=== PATIENT | female | born 1960 | race Caucasian/White ===

== ENCOUNTER 2020-06-08 10:48 | Outpatient (CLI) | payer BC, SELFPAY ==
--- NOTE | 2020-06-08 10:54 | MM_ITS ---
WS: [id number] BILATERAL DIGITAL SCREENING MAMMOGRAPHY WITH CAD CLINICAL INFORMATION: SCREENING HISTORY: Screening mammogram. No current complaints. COMPARISON: March 24, 2019 TECHNIQUE: Bilateral CC and MLO views. FINDINGS: The breasts are composed of heterogeneous fibroglandular density tissue, which can limit the detectio n of small underlying mass lesions. Scattered nodules and asymmetric densities similar in appearance over multiple prior studies. 11 mm 9:00 nodule has increased in size compared to 7 mm previous. This likely corresponds to the previously demonstrated cyst in 2018, however considering increase in size recommend further evaluation with spot compression views and ultrasound for confirmation. Stable intramammary lymph nodes and punctate calcifications. Biopsy clip left breast. MM/[id number] IMPRESSION: BI-RADS: 0-Incomplete: Need additional imaging evaluation FOLLOW UP: Need Additional Imaging Recommend spot compression views and ultrasound right breast
== END 2020-06-08 10:49 | disposition home or self-care (01) ==
LOC: RADSHAW 10:51
PROVIDERS: PCP Family Medicine; Visit Provider Family Medicine
DX: Z12.31 Encounter for screening mammogram for malignant neoplasm of breast (principal); N64.89 Other specified disorders of breast
CPT/HCPCS: 77067

== ENCOUNTER 2020-07-05 14:12 | Outpatient (CLI) | payer BC, SELFPAY ==
--- NOTE | 2020-07-05 14:19 | US_ITS ---
WS: [id number] RIGHT DIGITAL MAMMOGRAPHY WITH CAD CLINICAL INFORMATION: ABNORMAL MAMMOGRAM COMPARISON: June 08, 2020 TECHNIQUE: 3 views of the right breast were obtained. FINDINGS: The right breast is composed of heterogeneous fibroglandular density tissue, which can limit the dete ction of small underlying mass lesions. Stable 11 mm nodule at the 9:00 position. Additional smaller known cysts are stable. Ultrasound is pending. ULTRASOUND BREAST RIGHT TECHNIQUE: Ultrasound right breast focused area of concern. CLINICAL INFORMATION: ABNORMAL MAMMOGRAM COMPARISON: None. FINDINGS: Ultrasound right breast at the 10:00 position 6 cm from the nipple. Incidental simple cysts the large st measuring 1.3 x 0.8 x 1.2 cm at the 10:00 position. No suspicious lesions. No lesions to target fo r biopsy. Findings are benign. US/US breast RT limited* [id number] IMPRESSION: BI-RADS: 2-Benign FOLLOW UP: 1 Year Follow-up Recommend return to annual screening mammography.
== END 2020-07-05 14:13 | disposition home or self-care (01) ==
LOC: RADSHAW 14:13
PROVIDERS: PCP Family Medicine; Visit Provider Family Medicine
DX: R92.8 Other abnormal and inconclusive findings on diagnostic imaging of breast (principal); N60.01 Solitary cyst of right breast
CPT/HCPCS: 76642; 77065

== ENCOUNTER 2021-10-17 08:48 | Outpatient (CLI) | payer OTHER, SELFPAY ==
--- NOTE | 2021-10-17 08:56 | MM_ITS ---
WS: [id number] BILATERAL 3D TOMOSYNTHESIS DIGITAL SCREENING MAMMOGRAPHY WITH CAD CLINICAL INFORMATION: SCREENING HISTORY: Screening mammogram. No current complaints. COMPARISON: June 08, 2020 TECHNIQUE: Bilateral CC and MLO views. FINDINGS: The breasts are composed of heterogeneous fibroglandular density tissue, which can limit the detectio n of small underlying mass lesions. LEFT breast biopsy clip. Bilateral incidental calcifications. Sta ble 11 mm nodule 9:00 position RIGHT breast. This was previously shown to represent a cyst. History o f multiple cysts RIGHT breast. No suspicious mass, asymmetry, calcifications, or architectural distor tion. No evidence of malignancy. MM/[id number] IMPRESSION: BI-RADS: 2-Benign FOLLOW UP: 1 Year Follow-up Recommend return to annual screening mammography.
== END 2021-10-17 08:49 | disposition home or self-care (01) ==
PROVIDERS: PCP Family Medicine; Visit Provider Family Medicine
DX: Z12.31 Encounter for screening mammogram for malignant neoplasm of breast (principal)
CPT/HCPCS: 77063; 77067

== ENCOUNTER 2022-04-29 06:38 | Emergency (ER) | payer OTHER, SELFPAY ==
[2022-04-29 06:43] VITALS: BP 199/106; PULSE 81; RESP 20; TEMP 36.8; O2SAT 98; BMI 54.9
--- NOTE | 2022-04-29 07:13 | ED_ITS ---
HPI - Nausea/Vomiting/Diarrhea General: Chief complaint: Nausea/Vomiting/Diarrhea Stated complaint: Covid symptoms, positive on the Time Seen by Provider: 04/29/22 06:44 Source: patient Mode of arrival: ambulatory History of Present Illness: 62-year-old female presents emergency room complaining of nausea vomiting decreased appetite. Mild vague abdominal discomfort cramping-like symptoms. She was diagnosed positive for COVID on 04/20. Patient had a full course of symptoms including myalgias headache upper respiratory can symptoms with sinus congestion cough and anosmia. She still has some sinus congestion she was seen 2 days ago at a walk-in clinic and started on Zithromax she has 3 days left of the 5-day pack. MD elicited complaint: nausea Onset (ago): day(s) Associated nausea: Yes Location of pain: Diffuse Quality: aching Exacerbating factors: none Relieving factors: none Context: other (Recently diagnosed with COVID) Associated symtoms: Reports bloating, fatigue, anorexia, malaise, myalgias, nausea and weakness; Denies altered mental status, anxiety, change in vision, chest pain, cough, diaphoresis, decreased urine output, dizziness, dysuria, epistaxis, fecal incontinence, fevers/chills, headache(s), numbness, palpitations, rash, short of breath, syncope, tenesmus or tinnitus Review of Systems Const: Reports: fatigue and malaise; Denies: fever(s), chills or diaphoresis Eyes: Denies: change in vision ENMT: Denies: throat pain, tinnitus or epistaxis Card: Denies: chest pain, palpitations or syncope Resp: Denies: dyspnea, productive cough or non-productive cough GI: Reports: abdominal pain, nausea, bloating and GI cramping; Denies: vomiting, fecal incontinence or hematochezia : Denies: flank pain, difficulty voiding, dysuria, urinary frequency or urinary urgency Skin/Breast: Denies: rash or pruritus Neuro: Denies: headache(s) or dizziness Psych: Denies: anxiety PFSH ED PFSH: Medical History Hypertension Hypothyroidism Social History Smoking and tobacco status: current every day smoker Alcohol intake: never Physical Exam Const: COMMON NORMALS: no acute distress EXAM LIMITATIONS: no altered mental status GENERAL APPEARANCE: cooperative and comfortable ORIENTATION/CONSCIOUSNESS: Yes awake, Yes oriented to person, Yes oriented to place and Yes oriented to time HENMT: COMMON NORMALS: normocephalic, atraumatic and hearing grossly normal bilaterally HEAD & SCALP: normocephalic and atraumatic Eye: COMMON NORMALS: Equal, round and reactive pupils present, EOMs intact bilaterally, conjunctivae normal and no scleral icterus CONJUNCTIVA: Yes conjunctivae normal PUPIL: Yes Equal, round and reactive pupils present Neck/C-Spine: COMMON NORMALS: full ROM, no lymphadenopathy, supple and no JVD Lymph: LYMPHATIC: no lymphadenopathy noted and no lymphedema noted Resp: COMMON NORMALS: normal respiratory effort, No retractions, No use of accessory muscles and clear to auscultation bilaterally AUSCULTATION: clear to auscultation bilaterally Cardio: COMMON NORMALS: no JVD, regular rate, regular rhythm and No murmurs present (Cardio) RATE: regular rate RHYTHM: regular rhythm GI: COMMON NORMALS: Soft to palpation and No hepatosplenomegaly present AUSCULTATION: Yes normoactive bowel sounds PALPATION: Yes Soft to palpation, No Tenderness to palpation present (GI), No Guarding due to palpation present (GI) and Yes No hepatosplenomegaly present Extremity: COMMON NORMALS: normal to inspection, capillary refill normal, no clubbing, cyanosis or edema, no calf tenderness and no pedal edema Neuro: SENSORIUM/ORIENTATION: Yes oriented to person, Yes oriented to place and Yes oriented to time Skin: COMMON NORMALS: no rashes or lesions noted GENERAL SKIN EXAM: no rashes or lesions noted Course Vital Signs: Vital signs: Vital Signs Temperature 98.2 F 04/29/22 06:43 Pulse Rate 70 04/29/22 07:31 Respiratory Rate 20 H 04/29/22 06:43 Blood Pressure 174/86 04/29/22 07:31 Pulse Oximetry 99 04/29/22 07:31 Oxygen Delivery Me thod 04/29/22 06:43 MDM - Nausea/Vomiting/Diarrhea Medical Decision Making Suspect a lot of this GI sequela from her COVID. Can use ondansetron as needed. Her abdominal exam is completely benign. Medical Records I reviewed the patient's medical records. Lab Data I reviewed the patient's lab results. Discharge Plan Discharge Patient Disposition: Home Clinical Impression: COVID, Gastroenteritis Condition: Stable Prescriptions: New ondansetron HCl 4 mg tablet 4 mg PO Q6H PRN (Reason: nausea and vomiting) Qty: 20 0RF No Action lisinopril 20 mg tablet 20 mg PO DAILY aspirin [Adult Low Dose Aspirin] 81 mg tablet,delayed release (DR/EC) 81 mg PO DAILY levothyroxine [Levoxyl] 112 mcg tablet 112 mcg PO DAILY clindamycin HCl 300 mg capsule 300 mg PO TID 7 Days Qty: 21 0RF Discharge Orders: Discharge ED (Routine); Ordered 04/29/22 Ordered By: Maximo Iqbal Referrals: Ricky Clay MD [Primary Care Provider] - Discharge Diet: Advance as tolerated Discharge Activity: Increase activity as tolerated Patient Instructions: Opioid Safety, Pain Management Activity Restrictions/Additional Instructions: Use Zofran as needed. Your blood pressure is elevated at the time you are seen today follow-up with your doctor to recheck your blood pressure. Liquid diet today then advance as tolerated. If symptoms are persisting you could also start taking [id number] omeprazole 20 mg once daily. Coding Level of Care Code ED [employer] Programs Director for Abby Ruiz
[2022-04-29 07:31] VITALS: BP 174/86; PULSE 70; O2SAT 99
== END 2022-04-29 07:27 | disposition home or self-care (01) ==
PROVIDERS: Emergency Provider Family Medicine; PCP Family Medicine
DX: K52.9 Noninfective gastroenteritis and colitis, unspecified (principal); I10 Essential (primary) hypertension; E03.9 Hypothyroidism, unspecified; F17.200 Nicotine dependence, unspecified, uncomplicated; Z79.82 Long term (current) use of aspirin; Z86.16 Personal history of COVID-19
CPT/HCPCS: 99283

== ENCOUNTER 2023-03-14 10:37 | Outpatient (CLI) | payer OTHER, SELFPAY ==
--- NOTE | 2023-03-14 10:59 | MM_ITS ---
WS: [id number] BILATERAL 3D TOMOSYNTHESIS DIGITAL SCREENING MAMMOGRAPHY WITH CAD CLINICAL INFORMATION: SCREEN HISTORY: Screening mammogram. No current complaints. COMPARISON: 2021 TECHNIQUE: Bilateral CC and MLO views. FINDINGS: Scattered fibroglandular densities bilaterally. No suspicious focal mass, asymmetry, calcifications, or architectural distortion. No evidence of malignancy. Biopsy clip left breast. Incidental punctate calcifications. Previously described breast cyst 9:00 position right breast is decreased in size toda y measuring 7 mm. IMPRESSION: MM/[id number] BI-RADS: 2-Benign FOLLOW UP: 1 Year Follow-up Recommend return to annual screening mammography.
== END 2023-03-14 10:38 | disposition home or self-care (01) ==
LOC: RAD 10:42 → MOBLMAM 10:43 → RAD 10:54
PROVIDERS: PCP Family Medicine; Visit Provider Family Medicine
DX: Z12.31 Encounter for screening mammogram for malignant neoplasm of breast (principal)
CPT/HCPCS: 77063; 77067

== ENCOUNTER 2023-07-14 11:46 | Inpatient (IN) | payer OTHER, SELFPAY ==
[2023-07-14] VITALS (28 sets, daily range): BP systolic 79–184; BP diastolic 58–156; PULSE 89–104; RESP 17–36; TEMP 36.4–36.9; O2SAT 82–100; BMI 47.2; BMI 46.3
--- NOTE | 2023-07-14 11:49 | XR_ITS ---
WS: [id number] PORTABLE CHEST HISTORY: fall COMPARISON: None available. Slight elevation of the RIGHT diaphragm. Lung volumes are decreased. Hazy attenuation throughout both lungs is probably due to position of the patient and poor inspiration. No dense consolidations. No pleural effusion or pneumothorax. Cardiac size: Normal. Mediastinum/Aorta: Mildly prominent mediastinum as on the basis of supine positioning. No osseous abnormality seen. IMPRESSION: Decreased lung volumes, likely related to poor inspiratory effort. Otherwise negative.
--- NOTE | 2023-07-14 11:49 | XR_ITS ---
WS: [id number] Exam: XR hip RT 2-3V wo/w pel* [id number] Date/Time of Exam: 07/14/2023 11:52 AM Reason For Exam: fall No acute fracture or dislocation. The joint compartment is relatively well-maintained. Normal soft ti ssues. IMPRESSION: 1. No acute fracture.
--- NOTE | 2023-07-14 11:50 | ECG_ITS ---
[facility] Test Date: 2023-07-14 Pat Name: Negrita Lopez Department: Room: Gender: Female Front Office Supervisor: : 1960 Requested By: Thomas Alston Order Number: [id number] Reading MD: Basil Baker M.D. Measurements Intervals [place] Rate: 106 P: 36 SC: 134 QRS: 14 QRSD: 81 T: 58 QT: 334 QTc: 445 Interpretive Statements SINUS TACHYCARDIA MODERATE ST DEPRESSION [0.05+ mV ST DEPRESSION] No previous ECG available for comparison Electronically Signed On 07-14-2023 15:56:36 DIETETICS TEACHER by Basil Baker M.D. [id number]
--- NOTE | 2023-07-14 11:55 | USR_ITS ---
PROCEDURE INFORMATION: Exam: US Duplex Bilateral Lower Extremity Arteries Exam date and time: 07/14/2023 12:30 PM Age: 63 years old Clinical indication: Pain, gangrene, sores TECHNIQUE: Imaging protocol: Real-time ultrasound scan of the arteries of the bilateral lower extremities with 2-D zaidi scale, color Doppler flow and spectral waveform analysis. Images documented and saved. COMPARISON: No relevant prior studies available. FINDINGS: Arteries: No occlusion or significant stenosis in the visualized arteries. Normal waveforms. Dorsalis pedis artery is patent. Bilateral ARTHUR = 1 US/CV arterial duplex [facility] [id number] IMPRESSION: No stenosis or occlusion.
--- NOTE | 2023-07-14 12:20 | ED_ITS ---
HPI - Weakness 2 General: Chief complaint: ER Hold Stated complaint: fall Time Seen by Provider: 07/14/23 11:47 Source: patient and EMS Mode of arrival: EMS Limitations: no limitations History of Present Illness: 63-year-old female who was found down in the floor by her father today. She states she thinks she has been on the floor for 3 days but is unsure. Patient complains of right leg pain she denies hitting her head or any no injuries. Patient is covered in feces and urine she does have maggots on her left leg and a wound and wounds all over her legs currently. Associated symptoms: Denies chest pain, chills, fever(s), headache(s), nausea or vomiting Review of Systems 2 Const: Reports: malaise; Denies: fever(s), chills, body aches or change in appetite ENMT: Denies: throat pain or dental pain Card: Denies: chest pain Resp: Denies: dyspnea GI: Denies: abdominal pain, nausea, vomiting or diarrhea Musc: Reports: extremity pain; Denies: neck pain or back pain Skin/Breast: Reports: erythema; Denies: rash Neuro: Denies: headache(s) PFSH ED 2 PFSH: Medical History Hypothyroidism Hypertension Social History Smoking and tobacco/nicotine status: current every day tobacco/nicotine user Alcohol intake: never Substance/Drug Use: never Physical Exam 2 Const: COMMON NORMALS: patient oriented x3 GENERAL APPEARANCE: ill appearing HENMT: COMMON NORMALS: normocephalic and atraumatic HEAD & SCALP: n ormocephalic and atraumatic Eye: COMMON NORMALS: Equal, round and reactive pupils present and EOMs intact bilaterally PUPIL: Yes Equal, round and reactive pupils present Neck/C-Spine: COMMON NORMALS: full ROM and supple Chest: COMMONS NORMALS: normal inspection of the chest and normal palpation of entire chest wall Resp: COMMON NORMALS: normal respiratory effort, No retractions, No use of accessory muscles and clear to auscultation bilaterally AUSCULTATION: clear to auscultation bilaterally Cardio: COMMON NORMALS: regular rate, regular rhythm and No murmurs present (Cardio) RATE: regular rate RHYTHM: regular rhythm GI: COMMON NORMALS: Normal to inspection, nondistended, normoactive bowel sounds present, Soft to palpation, non-tender and no masses PALPATION: Yes Soft to palpation Extremity: NARRATIVE EXTREMITY EXAM: Multiple open pressure wounds to bilateral legs she does have feces covering her legs she has maggots on one of the wounds to the left lower leg both legs are mottled difficult to find any pulses in the right leg with a cold foot Neuro: COMMON NORMALS: patient oriented x3, moves all extremities and no focal motor deficits Psych: COMMON NORMALS: mental status grossly normal, Normal thought process present and cooperative THOUGHT PROCESS: Normal thought process present Skin: COMMON NORMALS: no rashes or lesions noted and no wounds GENERAL SKIN EXAM: no rashes or lesions noted Procedures Central Line Placement Right IJ: Time Out Performed: Yes Patient Placed on Monitor/Pulse Ox: Yes MD Prep: mask, gown and gloves Central Line Prep: Povidone-Iodine 1% Local Anesthetic: lidocaine 1% Amount of anesthesia used (mL): 3 Ultrasound Used for Placement: Yes Central Line Lumen Inserted: triple Post Procedure: sutured in place, good blood return, all ports aspirated, flushed, capped and sterile dressing applied Post Procedure X-Ray: tip of catheter in good position and no pneumothorax seen Patient Tolerated Procedure: well Complications: none Course 2 Vital Signs: Vital signs: Vital Signs Temperature 97.6 F 07/14/23 11:49 Pulse Rate 99 07/14/23 18:38 Respiratory Rate 23 H 07/14/23 18:38 Blood Pressure 116/69 07/14/23 17:30 Pulse Oximetry 98 07/14/23 18:38 Oxygen Delivery Me thod Room Air 07/14/23 18:38 MDM - Weakness Medical Decision Making Patient presents with rhabdomyolysis likely from being down for a long time she does have pressure wounds along with a UTI patient given IV antibiotics along with fluids here. Labs are consistent with acute kidney injury likely from rhabdo and dehydration patient was given IV fluids here. Central line had to be placed for access as patient was a very difficult IV stick and blown all her IVs. Medical Records I reviewed the patient's medical records. Lab Data I reviewed the patient's lab results. 07/14/23 12:54 07/14/23 12:54 Radiology Impressions Duplex Scan Lower Extremity Artery 07/14/23 11:55 IMPRESSION: No stenosis or occlusion. Abdomen/Pelvis CT 07/14/23 15:18 IMPRESSION: 6 mm nonobstructing left renal calculus. Lower Extremity CT 07/14/23 16:22 IMPRESSION: No evidence of abscess or osteomyelitis. Laboratory Results WBC 22.92 10^3/uL (3.29-11.43) H 07/14/23 12:54 RBC 5.18 10^6/uL (3.85-5.65) 07/14/23 12:54 Hgb 14.90 g/dL (11.27-16.99) 07/14/23 12:54 Hct 48.6 % (36-47) H 07/14/23 12:54 MCV 93.8 fl (85-98) 07/14/23 12:54 MCH 28.8 pg (27-33) 07/14/23 12:54 MCHC 30.7 g/dL (30-55) 07/14/23 12:54 RDW 15.9 % (12.1-15.1) H 07/14/23 12:54 Plt Count 355 10^3/cmm (157-399) 07/14/23 12:54 MPV 11.8 fL (7.4-10.4) H 07/14/23 12:54 Neut % (Auto) 87.2 % 07/14/23 12:54 Lymph % (Auto) 6.5 % 07/14/23 12:54 [place] % (Auto) 4.5 % 07/14/23 12:54 Eos % (Auto) 0.0 % 07/14/23 12:54 Baso % (Auto) 0.3 % 07/14/23 12:54 Neut # (Auto) 19.98 10^3/uL (1.8-7.7) H 07/14/23 12:54 Lymph # (Auto) 1.5 10^3/uL (0.8-4.8) 07/14/23 12:54 [place] # (Auto) 1.0 10^3/uL (0.2-0.9) H 07/14/23 12:54 Eos # (Auto) 0.0 10^3/uL (0.0-0.8) 07/14/23 12:54 Baso # (Auto) 0.1 10^3/uL (0.0-0.1) 07/14/23 12:54 Nucleated RBC % (auto) 0.6 % 07/14/23 12:54 Nucleated RBCs # 0.1 /100WBC 07/14/23 12:54 PT 17.00 SECONDS (12.1-14.9) H 07/14/23 12:54 INR 1.34 (0.8-1.2) H 07/14/23 12:54 Sodium 158 mmol/L (136-145) H 07/14/23 12:54 Sodium Cancelled 07/14/23 12:54 Potassium 4.6 mmol/L (3.5-5.1) 07/14/23 12:54 Potassium Cancelled 07/14/23 12:54 Chloride 117 mmol/L (98-107) H 07/14/23 12:54 Chloride Cancelled 07/14/23 12:54 Carbon Dioxide 24 mmol/L (22-29) 07/14/23 12:54 Carbon Dioxide Cancelled 07/14/23 12:54 Anion Gap 21.6 (5-19) H 07/14/23 12:54 Anion Gap Cancelled 07/14/23 12:54 BUN 107 mg/dL (8-23) H* 07/14/23 12:54 BUN Cancelled 07/14/23 12:54 Creatinine 2.7 mg/dL (0.5-0.9) H 07/14/23 12:54 Creatinine Cancelled 07/14/23 12:54 GFR Calculation 17.8 mL/min (90-130) L 07/14/23 12:54 GFR Calculation Cancelled 07/14/23 12:54 Glucose 276 mg/dL (65-115) H 07/14/23 12:54 Glucose Cancelled 07/14/23 12:54 Calculated Osmolality 370 mOsm/kg (285-295) H 07/14/23 12:54 Calculated Osmolality Cancelled 07/14/23 12:54 Lactic Acid 4.0 mmol/L (0.5-2.2) H 07/14/23 12:54 Calcium 9.6 mg/dL (8.5-10.5) 07/14/23 12:54 Calcium Cancelled 07/14/23 12:54 Magnesium 3.7 mg/dL (1.7-2.3) H 07/14/23 12:54 Iron 27 ug/dL (37-145) L 07/14/23 12:54 TIBC 179 mcg/dl 07/14/23 12:54 % Saturation 15.0 % (20-50) L 07/14/23 12:54 Unsat Iron Binding 152 ug/dL (112-347) 07/14/23 12:54 Total Bilirubin 0.8 mg/dL (0.15-1.2) 07/14/23 12:54 AST 141 U/L (0-32) H 07/14/23 12:54 ALT 88 U/L (0-33) H 07/14/23 12:54 Alkaline Phosphatase 109 U/L (35-105) H 07/14/23 12:54 Creatine Kinase 5748 U/L (26-192) H* 07/14/23 12:54 Total Protein 9.1 g/dL (6.6-8.7) H 07/14/23 12:54 Albumin 3.2 g/dL (3.5-5.2) L 07/14/23 12:54 Globulin 5.9 g/dL (1.3-4.6) H 07/14/23 12:54 Procalcitonin 0.41 ng/mL (0-0.5) 07/14/23 12:54 TSH 1.20 uIU/mL (0.27-4.20) 07/14/23 12:54 Urine Color Yellow (Yellow) 07/14/23 14:20 Urine Appearance Hazy (CLEAR) A 07/14/23 14:20 Urine pH 5 (5-7) 07/14/23 14:20 Ur Specific [place] 1.025 (1.005-1.030) 07/14/23 14:20 Urine Protein 2+ (Negative) H 07/14/23 14:20 Urine Glucose (UA) 1+ (Normal) H 07/14/23 14:20 Urine Ketones 1+ (Negative) H 07/14/23 14:20 Urine Blood 3+ (Negative) H 07/14/23 14:20 Urine Nitrate Positive (Negative) H 07/14/23 14:20 Urine Bilirubin 2+ (Negative) H 07/14/23 14:20 Urine Urobilinogen 4+ mg/dL (Negative) H 07/14/23 14:20 Ur Leukocyte Esterase 1+ (Negative) H 07/14/23 14:20 Urine RBC 15-25 /hpf (0-2) H 07/14/23 14:20 Urine WBC 0-4 /hpf (0-5) H 07/14/23 14:20 Ur Squamous Epith Cells 5-10 /hpf (0-5) H 07/14/23 14:20 Ur Transition Epith Cell 0-4 /hpf 07/14/23 14:20 Ur Renal Epithelial Cell 0-4 /hpf 07/14/23 14:20 Calcium Oxalate Crystal 0-4 /hpf H 07/14/23 14:20 Other Crystals Amm biurate /hpf 07/14/23 14:20 Amorphous Sediment Not Reportable 07/14/23 14:20 Urine Bacteria 2+ /hpf (NONE) H 07/14/23 14:20 Fine Granular Casts 0-4 /lpf H 07/14/23 14:20 Urine Mucus 1+ /hpf 07/14/23 14:20 Ur Oval Fat Bodies 1+ /hpf 07/14/23 14:20 Urine Opiates Screen Negative ng/mL (Negative) 07/14/23 14:20 Ur Barbiturates Screen Negative ng/mL (Negative) 07/14/23 14:20 Ur Phencyclidine Scrn Negative ng/mL (Negative) 07/14/23 14:20 Ur Amphetamines Screen Negative ng/mL (Negative) 07/14/23 14:20 U Benzodiazepines Scrn Negative ng/mL (Negative) 07/14/23 14:20 Urine Cocaine Screen Negative ng/mL (Negative) 07/14/23 14:20 U Marijuana (THC) Screen Negative ng/mL (Negative) 07/14/23 14:20 All radiology interpretation(s) finalized by discharge EKG Data EKG 1: I personally reviewed and interpreted this EKG as follows: EKG interpretation date: 07/14/23 EKG interpretation time: 11:58 Interpretation: sinus tach no st elevation qrs 81 qtc 396 Critical Care Time 2 Critical Care Time: Critical Care Time: Yes Total Critical Care Time: 45 Attestation: The high probability of a clinically significant, sudden or life threatening deterioration of the patient's renal system(s) required my full and direct attention, intervention and personal management. The critical care time is as shown. This time is in addition to time spent performing any reported procedures but includes the following: [x] Data and vital sign review and interpretation [x] Patient assessment, examination and intervention [x] Documentation [x] Medication orders and management Discharge Plan Discharge Patient Disposition: Admitted As Inpatient Admit Provider: Anil Magana Clinical Impression: Pressure ulcer, Acute kidney injury Rhabdomyolysis Qualifiers: Rhabdomyolysis type: non-traumatic Qualified Code(s): M62.82 - Rhabdomyolysis Acute cystitis Qualifiers: Hematuria presence: without hematuria Qualified Code(s): N30.00 - Acute cystitis without hematuria Condition: Stable Coding Level of Care Code ED Bracelet Former for Abby Ruiz
--- NOTE | 2023-07-14 12:24 | PC.PHAR ---
PHARMACY STATES PT TAKES LEVOTHYROXINE 88 MCG DAILY AND AN EXTRA TABLET OF 100 MCG ONCE WEEKLY. 07/14/23
--- NOTE | 2023-07-14 13:00 | ECG_ITS ---
[facility] Test Date: 2023-07-14 Pat Name: Negrita Lopez Department: Room: Gender: Female Mental Hygienist: : 1960 Requested By: Thomas Alston Order Number: [id number] Otoniel MD: Basil Baker M.D. Measurements Intervals [place] Rate: 105 P: 44 OR: 137 QRS: -12 QRSD: 80 T: 54 QT: 338 QTc: 447 Interpretive Statements SINUS TACHYCARDIA MINIMAL VOLTAGE CRITERIA FOR LVH, CONSIDER NORMAL VARIANT [MEETS CRITERIA IN ONE OF: R(aVL), S(V1), R(V5), R(V5/V6)+S(V1)] ABNORMAL RHYTHM ECG Compared to ECG 07/14/2023 11:58:00 ST (T wave) deviation no longer present Electronically Signed On 07-14-2023 16:00:03 SHAPING MACHINE TENDER by Basil Baker M.D. [id number]
[2023-07-14 13:04] LABS: Basophils # 0.1 10^3/uL (0.0-0.1); Basophils % 0.3 %; Hematocrit 48.6 % (36-47); Lymphocytes # 1.5 10^3/uL (0.8-4.8); Lymphocytes % 6.5 %; Mean Corpuscular HGB Conc 30.7 g/dL (30-55); Mean Corpuscular Hemoglobin 28.8 pg (27-33); Mean Corpuscular Volume 93.8 fl (85-98); Mean Platelet Volume 11.8 fL (7.4-10.4); Monocytes % 4.5 %; Neutrophils # 19.98 10^3/uL (1.8-7.7); Neutrophils % 87.2 %; Nucleated Red Blood Cells # 0.1 /100WBC; Nucleated Red Blood Cells % 0.6 %; Platelet Count 355 10^3/cmm (157-399); Red Blood Count 5.18 10^6/uL (3.85-5.65); Red Cell Distribution Width 15.9 % (12.1-15.1); White Blood Count 22.92 10^3/uL (3.29-11.43)
[2023-07-14 13:17] LABS: INR 1.34 (0.8-1.2)
[2023-07-14] MEDS: vancomycin 1,000 MG in sodium chloride 0.9% 250 ML 250 MG IV (13:57)
[2023-07-14] MEDS: sodium chloride 0.9% 1,000 ML 999 ML IV ×2 (13:59)
[2023-07-14] MEDS: sodium chloride 0.9% 500 ML 999 ML IV (14:30)
[2023-07-14 14:43] LABS: Alanine Aminotransferase 88 U/L (0-33); Albumin Level 3.2 g/dL (3.5-5.2); Alkaline Phosphatase 109 U/L (35-105); Aspartate Amino Transferase 141 U/L (0-32); Calcium 9.6 mg/dL (8.5-10.5); Carbon Dioxide 24 mmol/L (22-29); Chloride 117 mmol/L (98-107); Globulin 5.9 g/dL (1.3-4.6); Glomerular Filtration Rate 17.8 mL/min (90-130); Glucose 276 mg/dL (65-115); Magnesium 3.7 mg/dL (1.7-2.3); Osmolality Calculated 370 mOsm/kg (285-295); Sodium 158 mmol/L (136-145); Total Bilirubin 0.8 mg/dL (0.15-1.2); Total Protein 9.1 g/dL (6.6-8.7)
[2023-07-14 14:47] LABS: Reflex Lactate Order REFLEX LACTIC ORDERD
[2023-07-14 14:50] LABS: Anion Gap 21.6 (5-19); Blood Urea Nitrogen 107 mg/dL (8-23); Potassium 4.6 mmol/L (3.5-5.1)
[2023-07-14] MEDS: aztreonam 2,000 MG in sodium chloride 0.9% (plus) 100 ML 200 MG IV (14:51)
[2023-07-14 15:09] LABS: Blood Urine 3+ (Negative); Glucose Urine UA 1+ (Normal); Ketones Urine 1+ (Negative); Nitrate Urine Positive (Negative); Protein Urine 2+ (Negative); Specific Gravity, Urine 1.025 (1.005-1.030); Urine Appearance Hazy (CLEAR); Urine Color Yellow (Yellow); pH Urine 5 (5-7)
[2023-07-14 15:10] LABS: Add Urine Microscopic? YES; Bilirubin Urine 2+ (Negative); Leukocyte Esterase Urine 1+ (Negative); Urobilinogen Urine 4+ mg/dL (Negative)
[2023-07-14 15:12] LABS: Creatine Phosphokinase 5748 U/L (26-192)
--- NOTE | 2023-07-14 15:18 | P.HP_ITS ---
Providers/Chief Complaint 2 Primary Care Provider: Ricky Clay MD Chief Complaint: fall History of Present Illness Negrita Lopez is a 63 year old female with PMH of hypothyroidism, HTN brought to ER after she was found down at home by her father. Patient on examonation is awkae and alert. Patient states she has been on the ground for the last 3 days. She was trying to get out of her recliner 3 days ago and fell down after which she did not have energy to get up by herself. She does not remember how she fell. Currently complaining of pain in her left lower leg. States she has always had chronic wounds on the left leg but has been getting worse now. She states a week prior to her fall she had flulike symptoms with runny nose and congestion but has been getting better. In the ER patient was found in disheveled condition covered in feces with maggots on her legs which were cleaned up. Review of Systems 2 General: Reports: 10 or more systems reviewed and unremarkable except in HPI and below Const: Denies: fever(s), chills, body aches, change in appetite, change in weight, malaise, night sweats, diaphoresis, change in sleep pattern, daytime sleepiness or snoring Eyes: Denies: change in vision, blurry vision, photophobia, eye discomfort or eye discharge ENMT: Denies: throat pain, enlarged tonsils, hoarseness, mouth pain, oral sores, dry mouth, tinnitus, nasal congestion or post nasal drip Card: Denies: chest pain, palpitations, irregular heart rhythm, edema, swelling of feet/ankles, lightheadedness, syncope, pre-syncope, dyspnea on exertion, orthopnea, leg pain with exertion or acrocyanosis Resp: Denies: dyspnea, productive cough, non-productive cough, wheezing, stridor, pain on inspiration, change in phlegm color, hemoptysis or chest congestion GI: Denies: abdominal pain, nausea, vomiting, hematemesis, coffee ground emesis, dysphagia, heartburn, diarrhea, constipation, bloating, GI cramping, change in bowel habits, pain on defecation, hematochezia or melena : Denies: flank pain, dysuria, urinary frequency, urinary urgency, urinary hesitancy, nocturia or hematuria Musc: Denies: neck pain, back pain, extremity pain, joint pain, joint swelling, joint redness, joint stiffness or limited range of motion Neuro: Denies: headache(s), numbness in extremities, weakness in extremities, sensory changes, lack of coordination, difficulty walking, frequent falls, dizziness, vertigo, confusion, Slurred speech present, difficulty communicating thoughts or seizure-like activity Psych: Denies: anxiety, depression, mood swings, panic attacks, hopelessness or irritability Endo: Denies: polyuria, polydipsia, tired all the time, cold intolerance, excessive sweating, flushing or heat intolerance Jerald/Lymph: Denies: easy bruising or easy bleeding All/Imm: Denies: tongue swelling, facial swelling or acute wheezing Medications/Allergies Home Medications Medication Instructions Recorded Confirmed Last Taken Type aspirin 81 mg tablet,delayed 81 mg PO DAILY 01/01/20 07/14/23 Unknown History release (Adult Low Dose Aspirin) levothyroxine 100 mcg tablet 100 mcg PO Q7D 07/14/23 07/14/23 Unknown History levothyroxine 88 mcg tablet 88 mcg PO DAILY 07/14/23 07/14/23 Unknown History lisinopril 20 2 tab PO DAILY 07/14/23 07/14/23 Unknown History mg-hydrochlorothiazide 12.5 mg tablet Allergies Allergy/AdvReac Type Severity Reaction Status Date / Time Penicillins Allergy RASH Verified 07/14/23 11:49 PFSH Acute 2 PFSH: Medical History (Updated 07/14/23 @ 22:20 by Anil Magana MD) COVID Hypothyroidism Hypertension Social History Smoking and tobacco/nicotine status: current every day tobacco/nicotine user Alcohol intake: never Substance/Drug Use: never Vitals/I&O/Wt Last Vital Signs Temp 97.6 F 07/14/23 11:49 Pulse 98 07/14/23 14:43 BP 117/99 07/14/23 14:43 Pulse Ox 94 07/14/23 14:43 O2 Del Method Room Air 07/14/23 14:43 07/14/23 07/14/23 07/14/23 06:59 14:59 22:59 Intake Total 500 / 500 Balance 500 / 500 Weight last 48 hrs Weight 124.738 kg Physical Exam 2 Narrative: General: No acute distress, AO x3, mildly confused HEENT: PERRLA, pupils bilaterally equal and reactive Chest: Bronchial breath sounds all over lung rodgers with occasional rhonchi and decreased air entry bilateral lower zone CVS: S1-S2 regular, no murmurs, tachycardia, no gallops, no rubs Abdomen: Soft, nontender, no organomegaly, bowel sounds present Neuro: No focal deficits, no facial deformity, AO x3, power 4 x 5 in both upper limbs, lower limbs cannot be assessed Extremity: Bilateral lower limb 1+ pitting edema, left leg as below with foul- smelling wounds with serosanguineous discharge Extremity: OTHER: Urinary Catheter Management: Villa: Cath Placed During This Visit: yes Urinary Catheter Date of Insertion: 07/14/23 Urinary Catheter Time of Insertion: 14:00 Data 07/15/23 04:04 07/15/23 04:04 A&P Assessment and plan (1) Fall: Unknown etiology. Unwitnessed. Component of rhabdomyolysis with elevated CPK. IV fluids at 100 cc/h. Check TSH, CPK, vitamin B12, folate levels. PT evaluation. (2) Sepsis: Ruled on admission with tachycardia, altered mental status, target organ dysfunction with renal dysfunction, elevated lactate. Follow-up repeat lactate. Patient received weight-based fluid sepsis bolus. Check blood culture, follow-up urine culture. Check MRSA swab, respiratory viral panel, procalcitonin. For now empirically cover patient with vancomycin and meropenem. Dose renally. Patient does have significant cellulitis with open wounds on left leg. Cannot rule out underlying collection/abscess. CT left lower limb. Cannot use contrast given acute kidney injury. Will consult wound care service/surgical team depending on CT results. For now dress wounds with Hydrofera Blue. (3) Acute cystitis: Follow-up urine culture Qualifiers: Hematuria presence: without hematuria Qualified Code(s): N30.00 - Acute cystitis without hematuria (4) Wound cellulitis: On left lower limb infested with maggots on presentation to the ER. CT as above. Will consult wound care. For now dressed with Hydrofera Blue. (5) Acute kidney injury: Most likely in setting of dehydration along baseline home dose of lisinopril and hydrochlorothiazide. Medical reconciliation done for nephrotoxic drugs. Check urine lites, urine creatinine. IV fluids as above. Check CT abdomen pelvis without contrast to rule out obstructive nephropathy. Monitor BMP daily. No metabolic acidosis currently. (6) Hypernatremia: Does have hypernatremia. Most likely in setting of dehydration. IV fluids as above. Repeat BMP in evening. (7) Rhabdomyolysis: Repeat CPK in AM. Fluid as above. Qualifiers: Rhabdomyolysis type: non-traumatic Qualified Code(s): M62.82 - Rhabdomyolysis (8) Elevated lactic acid level: (9) Transaminitis: Most likely in setting of severe rhabdomyolysis. (10) Pressure ulcer: (11) Hypothyroidism: Plan Hypertension: Goal blood pressure less than 140/90 mmHg. For now hold off on antihypertensives. If needed will add amlodipine depending on the blood pressures. CODE STATUS: Patient is awake and alert. Wants to remain full code. Patient's family including sister would be the DPOA. Regular diet Heparin 5000 every 12 hourly for DVT prophylaxis Protonix for PUD prophylaxis Attestations 2 Medical Necessity Statement*: Admission for more than 2 midnights for management of sepsis in setting of acute cystitis, cellulitis of lower limb, acute kidney injury secondary to rhabdomyolysis post fall Diagnoses Fall W19.XXXA Sepsis A41.9 Acute cystitis N30.00 Hematuria presence: without hematuria Wound cellulitis L03.90 Acute kidney injury N17.9 Hypernatremia E87.0 Rhabdomyolysis M62.82 Rhabdomyolysis type: non-traumatic Elevated lactic acid level R79.89 Transaminitis R74.01 Pressure ulcer L89.90 Hypothyroidism E03.9
--- NOTE | 2023-07-14 15:18 | CTR_ITS ---
PROCEDURE INFORMATION: Exam: CT Abdomen And Pelvis Without Contrast Exam date and time: 07/14/2023 3:33 PM Age: 63 years old Clinical indication: Abnormal findings; Abnormal lab test; Abnormal kidney function lab tests; Additional info: Acute kidney injury TECHNIQUE: Imaging protocol: Computed tomography of the abdomen and pelvis without contrast. Radiation optimization: All CT scans at this facility use at least one of these dose optimization techniques: automated exposure control; mA and/or kV adjustment per patient size (includes targeted exams where dose is matched to clinical indication); or iterative reconstruction. REPORTING DATA: Count of CT and Cardiac NM exams in prior 12 months: This patient has received 0 known CTs and 0 known cardiac nuclear medicine studies in the 12 months prior to the current study. COMPARISON: CR XR hip RT 2-3V wo/w pel* [id number] 07/14/2023 12:04 PM RADIATION DOSE METRICS: Total DLP (mGy-cm): 1555.25 FINDINGS: Liver: No mass. Gallbladder and bile ducts: No calcified stones. No ductal dilation. Pancreas: No ductal dilation. Spleen: No splenomegaly. Adrenal glands: No mass. Kidneys and ureters: 6 mm nonobstructing left inferior renal calculus. No ureteral calculi or hydroureteronephrosis. Stomach and bowel: No obstruction. Appendix: Normal appendix. Intraperitoneal space: No free air. No significant fluid collection. Vasculature: No abdominal aortic aneurysm. Lymph nodes: No enlarged lymph nodes. Urinary bladder: Decompressed rounded Villa catheter. Reproductive: Unremarkable as visualized. Bones/joints: Degenerative changes worst at L5-S1 without acute findings. Soft tissues: Unremarkable. CT/CT abdomen pelvis wo con [id number] IMPRESSION: 6 mm nonobstructing left renal calculus.
[2023-07-14 15:26] LABS: Bacteria Urine 2+ /hpf; Calcium Oxalate Crystals Urine 0-4 /hpf; Mucus Urine 1+ /hpf; RBC Urine 15-25 /hpf (0-2); Renal Epithelial Cells Urine 0-4 /hpf; Transitional Epi Cells Urine 0-4 /hpf; WBC Urine 0-4 /hpf (0-5)
[2023-07-14 15:27] LABS: Add Urine Culture? Yes; Fine Granular Casts Urine 0-4 /lpf; Other Crystals Urine AMM BIURATE /hpf; Oval Fat Bodies Urine 1+ /hpf
[2023-07-14 15:43] LABS: Procalcitonin 0.41 ng/mL (0-0.5)
[2023-07-14 15:48] LABS: Amphetamines Screen Urine Negative (Negative); Barbiturates Screen Urine Negative (Negative); Benzodiazepines Screen Urine Negative (Negative); Cocaine Screen Urine Negative (Negative); Opiate Screen Urine Negative (Negative); PCP Screen Urine Negative (Negative); THC Screen Urine Negative (Negative)
--- NOTE | 2023-07-14 16:22 | CTR_ITS ---
PROCEDURE INFORMATION: Exam: CT Left Lower Extremity Without Contrast; Lower Leg Exam date and time: 07/14/2023 4:47 PM Age: 63 years old Clinical indication: Cellulitis; Lower leg; Left; Additional info: Cellulitis, possible abscees TECHNIQUE: Imaging protocol: CT of the left lower extremity without contrast was performed. Exam focused on the lower leg. Radiation optimization: All CT scans at this facility use at least one of these dose optimization techniques: automated exposure control; mA and/or kV adjustment per patient size (includes targeted exams where dose is matched to clinical indication); or iterative reconstruction. REPORTING DATA: Count of CT and Cardiac NM exams in prior 12 months: This patient has received 0 known CTs and 0 known cardiac nuclear medicine studies in the 12 months prior to the current study. COMPARISON: [place] [id number] 07/14/2023 12:30 PM RADIATION DOSE METRICS: Total DLP (mGy-cm): 1726.32 FINDINGS: Bones/joints: No fracture, dislocation or osseous destruction/erosion. Degenerative changes. Soft tissues: Lower extremity skin thickening/cellulitis without underlying loculated collection or soft tissue gas. CT/CT lower leg LT wo con* [id number] IMPRESSION: No evidence of abscess or osteomyelitis.
--- NOTE | 2023-07-14 17:36 | XRR_ITS ---
PROCEDURE INFORMATION: Exam: XR Chest Exam date and time: 07/14/2023 7:22 PM Age: 63 years old Clinical indication: Device placement; Other: Central line; Additional info: Central line placement, patient is in er 7. I will call when ready. TECHNIQUE: Imaging protocol: Radiologic exam of the chest. Views: 1 view. COMPARISON: CR XR chest 1V portable [id number] 07/14/2023 12:02 PM FINDINGS: Tubes, catheters and devices: Right IJ approach central venous catheter positioned with its tip near the upper cavoatrial junction. Lungs: Unremarkable. No consolidation. Pleural spaces: No pneumothorax. Heart/Mediastinum: Unremarkable. No cardiomegaly. Bones/joints: Unremarkable. XR/XR chest 1V portable [id number] IMPRESSION: 1. Right IJ approach central venous catheter positioned with its tip near the upper cavoatrial junction. 2. No pneumothorax.
--- NOTE | 2023-07-14 18:00 | SUR.PREOP ---
TIME OUT FOR PICC LINE INSERTION COMPLETED.
--- NOTE | 2023-07-14 18:38 | SUR.PHASEI ---
PICC INSERTION NOTE Picc line attempted in the patient at the request of Dr Alston. Indication for IV access needed because the patient kept infitrating iv's that had placed by him. Total count was 2 ultrasound placements within the last 12 hours. Indications for picc include: Poor Peripheral acess; Need for IV antibiotics probabley greater than 14 days. Upon my assessment of the patient on arrival was that she has had an IV infitrate in her left ac space and s/s of the infitration extending up to the level of the bicep: Placement of the left side is not indicated d/t these findings. Patient has one IV currently in the right upper arm that was placed earlier in the day but the staff is reporting to me that it no longer draws blood and is becoming increasingly difficult to flush. This is her only access. Patient was consented for PICC line. She understood the risks/benefits/ need of the placement. I also spoke with her sister Sia about the placement at the patient's request. She waited in the waiting room while access was attempted for line placement. The patient was then subsequently drapped and prepped for picc line insertion using standard and sterile fashion. I made one attempt at the bascilic vein at the level of the AC space. Blood did return through the needle access however wire access and advancement was somewhat difficult to maneuver up the vein. I got approximately 3/4 of the guidewire up the blood vessel without any difficuly and felt this was sufficient enough for dilation of the vessel and catheter advancement. I attempted the picc advancement throgh the dilator but was unable to advance the catheter. Picc removed. Vessel dilator was removed. I held manual pressure at this site until hemostasis was achived. Time was 5 minutes held. A second attempt at access was made proximally to the initial attempt in the bascilic vein at the level just above the access made by Dr Alston (this iv is not in the attempted vessels; my assessment was an accessory branch that feeds into the median cubital vein is where the iv is placed). The vessel depth due to body habitus and the patient's arm circumfrence being greather than 50 cm made this attempt difficult. Venous access was made here 1 time with the wire not advancing past the needle tip. Both wire and needle were removed together and manual pressure was held until hemostasis. A desicion to abort procedure after this attempt was made. Patient was agreeable to stopping. Total time with the patient was about 60 minutes including the preparation. I spoke with Dr Alston about the procedure and he stated that he thought she would be difficult but was hopeful for picc access; but will just put a central line access in at this point. Patient informed of the MD's change in plans for IV placement and she is okay with that. Patient left in stable condition with no issues with vasuclar bleeding from the IV attempts noted. Both sites are hemostatic at the time of my departure.
[2023-07-14 19:17] LABS: Total Iron Binding Capacity 179 mcg/dl; Unsaturated Iron Binding 152 ug/dL (112-347)
[2023-07-14 19:24] LABS: Iron 27 ug/dL (37-145)
[2023-07-14 19:33] LABS: Vitamin B12 950 pg/mL (232-1245)
[2023-07-14] MEDS: meropenem 1,000 MG in sodium chloride 0.9% (plus) 50 ML 100 MG IV (19:56)
[2023-07-14] MEDS: pantoprazole 40 mg SDV IVP (19:57)
[2023-07-14] MEDS: heparin 5,000 unit/mL INJ 1 mL 5000 UNIT SUBCUT (19:59)
[2023-07-14] MEDS: dextrose 5%-sod chloride 0.9% 1,000 ML 75 ML IV ×2 (20:04→23:52)
[2023-07-14 20:21] LABS: Lactic Acid level (Lactate) 2.3 mmol/L (0.5-2.2)
[2023-07-14 20:22] LABS: Calcium 8.5 mg/dL (8.5-10.5); Carbon Dioxide 23 mmol/L (22-29); Chloride 122 mmol/L (98-107); Glomerular Filtration Rate 21.4 mL/min (90-130); Glucose 250 mg/dL (65-115); Sodium 159 mmol/L (136-145)
[2023-07-14 20:41] LABS: Blood Urea Nitrogen 50 mg/dL (8-23); Osmolality Calculated 350 mOsm/kg (285-295)
[2023-07-14] MEDS: morphine 4 mg/mL SDV 1 mL 2 MG IVP (23:02)
--- NOTE | 2023-07-14 23:57 | PC.NURSE ---
Patient arrived from ED with extensive wounds that had not been dressed and a bowel movement. Patient was given pain meds and full bed bath with wound cleansing. Wounds were dressed with dressings per verbal approval of hospitalist. Maggots noted with sloughing of skin on extensive parts of her posterior thighs, buttocks, and calves along with a large right hip wound with eschar. Heels and toes have extensive cracking, redness, peeling skin. Photos sent to hospitalist.
[2023-07-15] VITALS (235 sets, daily range): BP systolic 98–163; BP diastolic 59–124; PULSE 87–112; RESP 15–29; TEMP 36.4–36.5; O2SAT 82–100
[2023-07-15 02:07] LABS: Glucose Point of Care 248 mg/dL (70-110)
[2023-07-15 02:42] LABS: Adenovirus Not Detected (NOT DETECT); Chlamydia Pneumoniae Not Detected (NOT DETECT); Coronavirus 229E,HKU1,NL63,OC4 Not Detected (NOT DETECT); Human Metapneumovirus Not Detected (NOT DETECT); Human Rhinovirus/Enterovirus Not Detected (NOT DETECT); Influenza A Not Detected (NOT DETECT); Influenza A H1 Not Detected (NOT DETECT); Influenza A H1-2009 Not Detected (NOT DETECT); Influenza A H3 Not Detected (NOT DETECT); Influenza B Not Detected (NOT DETECT); Mycoplasma Pneumoniae Not Detected (NOT DETECT); Parainfluenza Virus Type 1 Not Detected (NOT DETECT); Parainfluenza Virus Type 2 Not Detected (NOT DETECT); Parainfluenza Virus Type 3 Not Detected (NOT DETECT); Parainfluenza Virus Type 4 Not Detected (NOT DETECT); Respiratory Syncytial Virus A Not Detected (NOT DETECT); Respiratory Syncytial Virus B Not Detected (NOT DETECT); SARS-COV-2 Not Detected (NOT DETECT)
[2023-07-15] MEDS: meropenem 1,000 MG in sodium chloride 0.9% (plus) 50 ML 100 MG IV ×3 (02:59→18:14)
[2023-07-15 04:29] LABS: Basophils % 0.2 %; Hematocrit 39.2 % (36-47); Lymphocytes # 1.5 10^3/uL (0.8-4.8); Lymphocytes % 9.1 %; Mean Corpuscular HGB Conc 29.8 g/dL (30-55); Mean Corpuscular Hemoglobin 28.7 pg (27-33); Mean Corpuscular Volume 96.1 fl (85-98); Monocytes # 0.7 10^3/uL (0.2-0.9); Monocytes % 4.4 %; Neutrophils # 13.96 10^3/uL (1.8-7.7); Neutrophils % 85.6 %; Nucleated Red Blood Cells # 0.1 /100WBC; Nucleated Red Blood Cells % 0.3 %; Platelet Count 199 10^3/cmm (157-399); Red Blood Count 4.08 10^6/uL (3.85-5.65); White Blood Count 16.31 10^3/uL (3.29-11.43)
[2023-07-15 04:49] LABS: Alanine Aminotransferase 59 U/L (0-33); Albumin Level 2.2 g/dL (3.5-5.2); Alkaline Phosphatase 79 U/L (35-105); Anion Gap 14.6 (5-19); Aspartate Amino Transferase 93 U/L (0-32); Calcium 8.1 mg/dL (8.5-10.5); Carbon Dioxide 23 mmol/L (22-29); Chloride 118 mmol/L (98-107); Chol HDL Ratio 5.52 mg/dL (0.0-4.40); Cholesterol 116 mg/dL (0-200); Globulin 4.6 g/dL (1.3-4.6); Glomerular Filtration Rate 28.4 mL/min (90-130); Glucose 333 mg/dL (65-115); HDL Cholesterol 21 mg/dL (60-100); LDL Cholesterol Calculated 50 mg/dL (50-129); LDL HDL Ratio 2.38 RATIO (0.00-3.22); Magnesium 3.1 mg/dL (1.7-2.3); Osmolality Calculated 358 mOsm/kg (285-295); Phosphorus 3.3 mg/dL (2.5-4.5); Potassium 3.6 mmol/L (3.5-5.1); Sodium 152 mmol/L (136-145); Total Bilirubin 0.5 mg/dL (0.15-1.2); Total Protein 6.8 g/dL (6.6-8.7); Triglycerides 224 mg/dL (0-150)
[2023-07-15 04:50] LABS: Slide Review Slide Review Perform
[2023-07-15 04:53] LABS: Estmated Average Glucose 126
[2023-07-15 04:54] LABS: Procalcitonin 0.45 ng/mL (0-0.5)
[2023-07-15 05:00] LABS: Blood Urea Nitrogen 100 mg/dL (8-23)
[2023-07-15 05:05] LABS: Folate Level 14.1 ng/mL (4.8-37.3)
[2023-07-15] MEDS: heparin 5,000 unit/mL INJ 1 mL 5000 UNIT SUBCUT ×2 (06:40→17:22)
[2023-07-15] MEDS: levothyroxine 88 mcg Tablet PO ×2 (08:41→08:47)
[2023-07-15] MEDS: aspirin 81 mg EC Tablet PO (08:41)
[2023-07-15 09:41] LABS: Potassium, Radom Urine 39 mmol/L; Urine Creatinine 81 mg/dL (28-217)
[2023-07-15 09:54] LABS: Urine Random Chloride < 10 mmol/L; Urine Random Sodium < 10 mmol/L
[2023-07-15] MEDS: morphine 4 mg/mL SDV 1 mL 2 MG IVP ×2 (10:05→15:28)
[2023-07-15] MEDS: dextrose 5%-sod chloride 0.9% 1,000 ML 100 ML IV ×2 (10:08→10:40)
[2023-07-15 10:10] LABS: Eosinophil Urine No Eosinophils Seen
--- NOTE | 2023-07-15 10:21 | P.PN_ITS ---
Subjective 2 Subjective: No acute events overnight. Patient today morning seen in the ICU. After transferring to ICU from ER yesterday patient was found to have further maggots. Patient seems to be in significant discomfort because of the pain. On further examination after getting pain medication she was found to have significant decubitus ulcer on the right hip. Otherwise patient has remained hemodynamically stable and afebrile. Blood work appreciated. Vitals/I&O/Wt Last Vital Signs Temp 97.7 F 07/15/23 08:00 Pulse 92 07/15/23 08:40 Resp 24 H 07/15/23 08:40 BP 136/68 07/15/23 08:40 Pulse Ox 99 07/15/23 08:40 O2 Del Method Nasal Cannula 07/14/23 23:48 O2 Flow Rate 4 07/14/23 23:08 07/14/23 07/15/23 07/15/23 22:59 06:59 14:59 Intake Total 2290 / 3140 2213 / 5353 1661.833 / 1661.833 Output Total 250 / 250 650 / 900 270 / 270 Balance 2040 / 2890 1563 / 4453 1391.833 / 1391.833 Weight last 48 hrs Weight 122.47 kg Weight 124.738 kg Physical Exam 2 Narrative: General: No acute distress, AO x3, mildly confused HEENT: PERRLA, pupils bilaterally equal and reactive Chest: Bronchial breath sounds all over lung rodgers with occasional rhonchi and decreased air entry bilateral lower zone CVS: S1-S2 regular, no murmurs, tachycardia, no gallops, no rubs Abdomen: Soft, nontender, no organomegaly, bowel sounds present Neuro: No focal deficits, no facial deformity, AO x3, power 4 x 5 in both upper limbs, lower limbs cannot be assessed Extremity: Bilateral lower limb 1+ pitting edema, left leg as below with foul- smelling wounds with serosanguineous discharge Extremity: OTHER: Decub Urinary Catheter Management: Villa: Cath Placed During This Visit: yes Reason for Continuing Indwelling Catheter: Accurate Measurement of Urinary Output in Critically Ill Patients Urinary Catheter Date of Insertion: 07/14/23 Urinary Catheter Time of Insertion: 14:00 Data 07/15/23 04:04 07/15/23 04:04 Micro: Microbiology 07/15/23 08:35 Legionella Urinary Antigen - Final Unknown Source 07/14/23 12:54 Blood Culture - Preliminary Blood 07/14/23 18:53 Blood Culture - Preliminary Blood SPECIMEN COLLECTED A&P Assessment and plan (1) Fall: Unknown etiology. Unwitnessed. Component of rhabdomyolysis with elevated CPK. Slight improvement in CPK today. IV fluids at 125 cc/h. Appreciate TSH, CPK B12 and folate levels. Awaiting PT evaluation. (2) Bacterial infection due to Proteus mirabilis: (3) Sepsis: Ruled on admission with tachycardia, altered mental status, target organ dysfunction with renal dysfunction, elevated lactate. Respiratory viral panel negative. MRSA swab pending. For now continue with renally dosed vancomycin and meropenem. Blood cultures growing Proteus mirabilis. Will de-escalate antibiotics as per culture sensitivity. Repeat blood culture in AM. Patient would need contrast study for CT hip and CT left leg. Will hold off for now and await further improvement in renal functions. Consult surgery. Wound care for now with Hydrofera Blue. Will await surgical recommendations. (4) Acute cystitis: Follow-up urine culture Qualifiers: Hematuria presence: without hematuria Qualified Code(s): N30.00 - Acute cystitis without hematuria (5) Wound cellulitis: Surgical consultation as above. Might need debridement. Antibiotics as above. (6) Acute kidney injury: Most likely in setting of dehydration along baseline home dose of lisinopril and hydrochlorothiazide. Improving. Medical reconciliation done for nephrotoxic drugs. CT abdomen pelvis rule out obstructive nephropathy. IV fluids as above. Monitor BMP daily. No metabolic acidosis currently. (7) Hypernatremia: Improving. Down to 152. IV fluids as above. Repeat BMP in evening. (8) Rhabdomyolysis: Repeat CPK in AM. Fluid as above. Qualifiers: Rhabdomyolysis type: non-traumatic Qualified Code(s): M62.82 - Rhabdomyolysis (9) Elevated lactic acid level: (10) Transaminitis: Most likely in setting of severe rhabdomyolysis. (11) Pressure ulcer: (12) Hypothyroidism: Plan Hypertension: Goal blood pressure less than 140/90 mmHg. For now hold off on antihypertensives. If needed will add amlodipine depending on the blood pressures. CODE STATUS: Patient is awake and alert. Wants to remain full code. Patient's family including sister would be the DPOA. Regular diet Heparin 5000 every 12 hourly for DVT prophylaxis Protonix for PUD prophylaxis Patient is significantly deconditioned. Most likely patient will need IV antibiotics and surgical debridement. Patient will need antibiotics for at least 14 days after clearing of blood cultures if patient does not have any osteomyelitis otherwise will need a longer course of antibiotics. Awaiting PT evaluation the patient would most likely need aggressive wound care and physical therapy going forward. Case management alerted for possible placement to SNF versus LTAC. Attestations 2 Medical Necessity Statement*: Requires further hospitalization for management of Proteus mirabilis bacteremia, significant decub ulcer, JOSE A, rhabdomyolysis Diagnoses Fall W19.XXXA Bacterial infection due to Proteus mirabilis A49.8 Sepsis A41.9 Acute cystitis N30.00 Hematuria presence: without hematuria Wound cellulitis L03.90 Acute kidney injury N17.9 Hypernatremia E87.0 Rhabdomyolysis M62.82 Rhabdomyolysis type: non-traumatic Elevated lactic acid level R79.89 Transaminitis R74.01 Pressure ulcer L89.90 Hypothyroidism E03.9
[2023-07-15 11:12] LABS: Glucose Point of Care 328 mg/dL (70-110)
[2023-07-15] MEDS: insulin lispro 100 unit/1 mL SUBCUT ×2 (11:24→18:00)
[2023-07-15 11:28] LABS: Creatine Phosphokinase 4032 U/L (26-192)
[2023-07-15] MEDS: vancomycin 1,500 MG/300 ML PIGGYBACK 200 MG IV (13:54)
--- NOTE | 2023-07-15 16:01 | CTR_ITS ---
PROCEDURE INFORMATION: Exam: CT Pelvis With Contrast Exam date and time: 07/15/2023 4:36 PM Age: 63 years old Clinical indication: Cellulitis; Buttock; Additional info: Decub ulcer with concern for osteo vs abscess TECHNIQUE: Imaging protocol: Computed tomography of the pelvis with contrast. Radiation optimization: All CT scans at this facility use at least one of these dose optimization techniques: automated exposure control; mA and/or kV adjustment per patient size (includes targeted exams where dose is matched to clinical indication); or iterative reconstruction. Contrast material: OMNI 350; Contrast volume: 100 ml; Contrast route: INTRAVENOUS (IV); REPORTING DATA: Count of CT and Cardiac NM exams in prior 12 months: This patient has received 2 known CTs and 0 known cardiac nuclear medicine studies in the 12 months prior to the current study. COMPARISON: CT abdomen pelvis wo con [id number] 07/14/2023 3:33 PM RADIATION DOSE METRICS: Total DLP (mGy-cm): 1038.59 FINDINGS: Stomach and bowel: Visualized small bowel and colon are unremarkable. Appendix: Normal appendix. Intraperitoneal space: No free air. No significant fluid collection. Lymph nodes: No enlarged lymph nodes. Urinary: 5 mm left renal calculus. Urinary bladder is decompressed around a Villa catheter. Reproductive: Normal as visualized. Bones/joints: No acute findings. Soft tissues: Right gluteal skin and subcutaneous soft tissue thickening without loculated collection. Soft tissue gas is noted close to the right greater trochanter of the femur on coronal image 41 for example. No underlying osseous destruction. CT/CT pelvis w con* [id number] IMPRESSION: No loculated collection/abscess or evidence of acute osteomyelitis.
--- NOTE | 2023-07-15 16:03 | P.CONIM_ITS ---
Providers/Reason For Consult 2 Consulting Physician/Specialty*: Dr. Demetrius Morejon, DO/General surgery Reason for Consult*: Bilateral lower extremity wounds Attending Physician: Anil Magana MD Primary Care Provider: Ricky Clay MD History of Present Illness History of Present Illness Negrita Lopez is a 63 year old female who presented to the hospital after being found down at home. She reports that she was on the ground for about 3 days. She reports severe bilateral lower extremity pain. Palpation makes the pain worse. Nothing makes pain better. The pain does not radiate. She is found to have an eschar on her right hip as well as wounds to the bilateral legs. She denies any fever or chills Review of Systems 2 General: Reports: 10 or more systems reviewed and unremarkable except in HPI and below Medications/Allergies Home Medications Medication Instructions Recorded Confirmed Last Taken Type aspirin 81 mg tablet,delayed 81 mg PO DAILY 01/01/20 07/14/23 Unknown History release (Adult Low Dose Aspirin) levothyroxine 100 mcg tablet 100 mcg PO Q7D 07/14/23 07/14/23 Unknown History levothyroxine 88 mcg tablet 88 mcg PO DAILY 07/14/23 07/14/23 Unknown History lisinopril 20 2 tab PO DAILY 07/14/23 07/14/23 Unknown History mg-hydrochlorothiazide 12.5 mg tablet Allergies Allergy/AdvReac Type Severity Reaction Status Date / Time Penicillins Allergy RASH Verified 07/14/23 11:49 Current Medications Generic Name Dose Route Start Last Admin Trade Name Freq PRN Reason Stop Dose Admin Aspirin 81 mg 07/15/23 09:00 07/15/23 08:41 Aspirin 81 Mg Ec Tablet PO 81 mg DAILY AKBAR Administration Heparin Sodium (Porcine) 5,000 unit 07/14/23 18:34 07/15/23 06:40 Heparin 5,000 Unit/Ml Inj 1 Ml SUBCUT 5,000 unit Q12H AKBAR Administration Dextrose/Sodium Chloride 1,000 mls @ 125 mls/hr 07/14/23 18:34 07/15/23 10:40 Dextrose 5%-Sod Chloride 0.9% IV 125 mls/hr .Q8H AKBAR Infusion Meropenem 1,000 mg/ Sodium 50 mls @ 100 mls/hr 07/14/23 19:00 07/15/23 12:17 Chloride IV Infused Q8H AKBAR Infusion Protocol Vancomycin/PEG/NADA/Lysine/Water 1,500 mg in 300 mls @ 200 mls/hr 07/15/23 14:00 07/15/23 15:25 Vancocin IV Infused Q36H AKBAR Infusion Insulin Human Lispro 0 unit 07/15/23 12:00 07/15/23 11:24 Insulin Lispro 100 Unit/1 Ml SUBCUT 10 unit WM&BEDTIME AKBAR Administration Protocol Levothyroxine Sodium 88 mcg 07/15/23 08:10 07/15/23 08:47 Levothyroxine 88 Mcg Tablet PO 88 mcg DAILY AKBAR Administration Morphine Sulfate 2 mg 07/14/23 18:34 07/15/23 15:28 Morphine 4 Mg/Ml Sdv 1 Ml IVP 2 mg Q4H PRN Administration SEVERE PAIN Pantoprazole Sodium 40 mg 07/14/23 18:34 07/14/23 19:57 Pantoprazole 40 Mg Sdv IVP 40 mg Q24H AKBAR Administration PFSH Acute 2 PFSH: Medical History COVID Hypothyroidism Hypertension Social History Smoking and tobacco/nicotine status: current every day tobacco/nicotine user Alcohol intake: never Substance/Drug Use: never Vitals/I&O/Wt Last Vital Signs Temp 97.7 F 07/15/23 08:00 Pulse 93 07/15/23 12:20 Resp 17 07/15/23 15:28 BP 127/86 07/15/23 12:15 Pulse Ox 100 07/15/23 15:28 O2 Del Method Room Air 07/15/23 12:20 O2 Flow Rate 4 07/14/23 23:08 07/15/23 07/15/23 07/15/23 06:59 14:59 22:59 Intake Total 2213 / 5353 2449.166 / 2449.166 300 / 2749.166 Output Total 650 / 900 270 / 270 Balance 1563 / 4453 2179.166 / 2179.166 300 / 2479.166 Weight last 48 hrs Weight 270 lb Weight 275 lb Physical Exam 2 Narrative: General : Patient is well developed , no acute distress, oriented x3 Head : Normal cephalic, a-traumatic. Ears : Pinnae and external canal are normal. Hearing is normal. Eyes : PERRLA, Sclera and injection are normal. No conjunctival discharge. Nose : Mucous membranes are without erythema. Throat : buccal mucosa is normal, gums are without significant recession or hypertrophy. Lungs : Equal chest rise bilaterally, no use of accessory muscles, trachea is midline. Cor : Rate and rhythm are normal. Abdomen : Soft, ND, NT, no g/r/m Extremities : No edema, no cyanosis or clubbing, dorsalis pedis pulses are present bilaterally, there is a large eschar over her right hip urged along with multiple smaller wounds of the bilateral legs with eschars. Upper extremities are normal bilaterally. Back : non-tender to palpation, no CVA tenderness. Neuro : CN II - XII intact, Upper and lower extremities have equal and full strength Urinary Catheter Management: Villa: Cath Placed During This Visit: yes Reason for Continuing Indwelling Catheter: Accurate Measurement of Urinary Output in Critically Ill Patients Urinary Catheter Date of Insertion: 07/14/23 Urinary Catheter Time of Insertion: 14:00 Data 07/15/23 04:04 07/15/23 04:04 Micro: Microbiology 07/14/23 12:54 Blood Culture - Preliminary Blood Proteus mirabilis 07/14/23 14:20 Urine Culture - Preliminary Urine,Clean Catch 07/15/23 08:35 Legionella Urinary Antigen - Final Unknown Source 07/14/23 18:53 Blood Culture - Preliminary Blood SPECIMEN COLLECTED A&P Assessment and plan (1) Unstageable decubitus ulcer with suspected deep tissue injury: (2) Wound of lower extremity: Plan Antibiotics N.p.o. after midnight 2 OR tomorrow for debridement of right hip and bilateral leg wounds The risks and benefits of the procedure, including but not limited to, bleeding, infection, scar, numbness, pain, nonhealing, were explained to the patient. She is understanding of these risks and wishes to proceed. Coding Level of Care Code 45781 Diagnoses Unstageable decubitus ulcer with suspected deep tissue injury L89.95 Wound of lower extremity S81.809A
[2023-07-15] MEDS: iohexol 350 mg/mL 500 mL Btl (per mL) IV (16:49)
[2023-07-15 16:52] LABS: Anion Gap 13.9 (5-19); Blood Urea Nitrogen 75 mg/dL (8-23); Calcium 8.1 mg/dL (8.5-10.5); Carbon Dioxide 23 mmol/L (22-29); Chloride 116 mmol/L (98-107); Glomerular Filtration Rate 41.4 mL/min (90-130); Glucose 317 mg/dL (65-115); Osmolality Calculated 342 mOsm/kg (285-295); Potassium 3.9 mmol/L (3.5-5.1); Sodium 149 mmol/L (136-145)
--- NOTE | 2023-07-15 16:57 | P.CONIM_ITS ---
Providers/Reason For Consult 2 Consulting Physician/Specialty*: [place] General surgery Attending Physician: Anil Magana MD Primary Care Provider: Ricky Clay MD History of Present Illness History of Present Illness Negrita Lopez is a 63 year old female Medications/Allergies Home Medications Medication Instructions Recorded Confirmed Last Taken Type aspirin 81 mg tablet,delayed 81 mg PO DAILY 01/01/20 07/14/23 Unknown History release (Adult Low Dose Aspirin) levothyroxine 100 mcg tablet 100 mcg PO Q7D 07/14/23 07/14/23 Unknown History levothyroxine 88 mcg tablet 88 mcg PO DAILY 07/14/23 07/14/23 Unknown History lisinopril 20 2 tab PO DAILY 07/14/23 07/14/23 Unknown History mg-hydrochlorothiazide 12.5 mg tablet Allergies Allergy/AdvReac Type Severity Reaction Status Date / Time Penicillins Allergy RASH Verified 07/14/23 11:49 Current Medications Generic Name Dose Route Start Last Admin Trade Name Freq PRN Reason Stop Dose Admin Aspirin 81 mg 07/15/23 09:00 07/15/23 08:41 Aspirin 81 Mg Ec Tablet PO 81 mg DAILY AKBAR Administration Heparin Sodium (Porcine) 5,000 unit 07/14/23 18:34 07/15/23 06:40 Heparin 5,000 Unit/Ml Inj 1 Ml SUBCUT 5,000 unit Q12H AKBAR Administration Dextrose/Sodium Chloride 1,000 mls @ 125 mls/hr 07/14/23 18:34 07/15/23 10:40 Dextrose 5%-Sod Chloride 0.9% IV 125 mls/hr .Q8H AKBAR Infusion Meropenem 1,000 mg/ Sodium 50 mls @ 100 mls/hr 07/14/23 19:00 07/15/23 12:17 Chloride IV Infused Q8H AKBAR Infusion Protocol Vancomycin/PEG/NADA/Lysine/Water 1,500 mg in 300 mls @ 200 mls/hr 07/15/23 14:00 07/15/23 15:25 Vancocin IV Infused Q36H AKBAR Infusion Insulin Human Lispro 0 unit 07/15/23 12:00 07/15/23 11:24 Insulin Lispro 100 Unit/1 Ml SUBCUT 10 unit WM&BEDTIME AKBAR Administration Protocol Levothyroxine Sodium 88 mcg 07/15/23 08:10 07/15/23 08:47 Levothyroxine 88 Mcg Tablet PO 88 mcg DAILY AKBAR Administration Morphine Sulfate 2 mg 07/14/23 18:34 07/15/23 15:28 Morphine 4 Mg/Ml Sdv 1 Ml IVP 2 mg Q4H PRN Administration SEVERE PAIN Pantoprazole Sodium 40 mg 07/14/23 18:34 07/14/23 19:57 Pantoprazole 40 Mg Sdv IVP 40 mg Q24H AKBAR Administration PFSH Acute 2 PFSH: Medical History COVID Hypothyroidism Hypertension Social History Smoking and tobacco/nicotine status: current every day tobacco/nicotine user Alcohol intake: never Substance/Drug Use: never Vitals/I&O/Wt Last Vital Signs Temp 97.7 F 07/15/23 08:00 Pulse 93 07/15/23 12:20 Resp 17 07/15/23 15:28 BP 127/86 07/15/23 12:15 Pulse Ox 100 07/15/23 15:28 O2 Del Method Room Air 07/15/23 12:20 O2 Flow Rate 4 07/14/23 23:08 07/15/23 07/15/23 07/15/23 06:59 14:59 22:59 Intake Total 2213 / 5353 2449.166 / 2449.166 300 / 2749.166 Output Total 650 / 900 270 / 270 Balance 1563 / 4453 2179.166 / 2179.166 300 / 2479.166 Weight last 48 hrs Weight 270 lb Weight 275 lb Physical Exam 2 Urinary Catheter Management: Villa: Cath Placed During This Visit: yes Reason for Continuing Indwelling Catheter: Accurate Measurement of Urinary Output in Critically Ill Patients Urinary Catheter Date of Insertion: 07/14/23 Urinary Catheter Time of Insertion: 14:00 Data 07/15/23 04:04 07/15/23 16:28 Micro: Microbiology 07/14/23 12:54 Blood Culture - Preliminary Blood Proteus mirabilis 07/14/23 14:20 Urine Culture - Preliminary Urine,Clean Catch 07/15/23 08:35 Legionella Urinary Antigen - Final Unknown Source 07/14/23 18:53 Blood Culture - Preliminary Blood SPECIMEN COLLECTED Coding Level of Care Code Acute Code for g Fwd
[2023-07-15 17:07] LABS: Creatine Phosphokinase 2738 U/L (26-192)
[2023-07-15] MEDS: pantoprazole 40 mg SDV IVP (17:22)
[2023-07-15] MEDS: dextrose 5%-sod chloride 0.9% 1,000 ML 125 ML IV (17:22)
[2023-07-15 17:43] LABS: Glucose Point of Care 269 mg/dL (70-110)
[2023-07-16] VITALS (188 sets, daily range): BP systolic 85–157; BP diastolic 70–121; PULSE 85–169; RESP 11–38; TEMP 36.4–36.8; O2SAT 67–100
[2023-07-16] MEDS: insulin lispro 100 unit/1 mL SUBCUT ×3 (01:25→17:41)
[2023-07-16 01:34] LABS: Glucose Point of Care 245 mg/dL (70-110)
[2023-07-16] MEDS: meropenem 1,000 MG in sodium chloride 0.9% (plus) 50 ML 100 MG IV ×3 (02:42→18:28)
[2023-07-16] MEDS: dextrose 5%-sod chloride 0.9% 1,000 ML 125 ML IV ×3 (02:43→18:29)
[2023-07-16] MEDS: morphine 4 mg/mL SDV 1 mL 2 MG IVP (03:28)
[2023-07-16 04:35] LABS: Basophils % 0.2 %; Eosinophils % 0.1 %; Hematocrit 38.7 % (36-47); Lymphocytes # 1.5 10^3/uL (0.8-4.8); Lymphocytes % 9.8 %; Mean Corpuscular HGB Conc 28.9 g/dL (30-55); Mean Corpuscular Hemoglobin 28.3 pg (27-33); Mean Corpuscular Volume 97.7 fl (85-98); Mean Platelet Volume 12.5 fL (7.4-10.4); Monocytes # 0.5 10^3/uL (0.2-0.9); Monocytes % 3.1 %; Neutrophils # 13.18 10^3/uL (1.8-7.7); Neutrophils % 85.7 %; Nucleated Red Blood Cells # 0.1 /100WBC; Nucleated Red Blood Cells % 0.4 %; Platelet Count 169 10^3/cmm (157-399); Red Blood Count 3.96 10^6/uL (3.85-5.65); White Blood Count 15.37 10^3/uL (3.29-11.43)
[2023-07-16 05:01] LABS: Alanine Aminotransferase 49 U/L (0-33); Alkaline Phosphatase 78 U/L (35-105); Anion Gap 11.8 (5-19); Aspartate Amino Transferase 58 U/L (0-32); Blood Urea Nitrogen 58 mg/dL (8-23); Calcium 8.3 mg/dL (8.5-10.5); Carbon Dioxide 23 mmol/L (22-29); Chloride 119 mmol/L (98-107); Globulin 4.7 g/dL (1.3-4.6); Glomerular Filtration Rate 50.2 mL/min (90-130); Glucose 218 mg/dL (65-115); Osmolality Calculated 333 mOsm/kg (285-295); Potassium 3.8 mmol/L (3.5-5.1); Sodium 150 mmol/L (136-145); Total Bilirubin 0.2 mg/dL (0.15-1.2); Total Protein 6.7 g/dL (6.6-8.7)
[2023-07-16 05:10] LABS: Slide Review Slide Review Perform
[2023-07-16 05:13] LABS: Creatine Phosphokinase 1806 U/L (26-192)
[2023-07-16 05:59] LABS: Glucose Point of Care 219 mg/dL (70-110)
[2023-07-16] MEDS: heparin 5,000 unit/mL INJ 1 mL 5000 UNIT SUBCUT ×2 (06:23→17:41)
[2023-07-16 07:27] LABS: Glucose Point of Care 184 mg/dL (70-110)
[2023-07-16] MEDS: aspirin 81 mg EC Tablet PO (08:38)
[2023-07-16] MEDS: levothyroxine 88 mcg Tablet PO (08:38)
[2023-07-16 10:54] LABS: Methicillin-Resist S.aureu PCR DETECTED (NOT DETECTED)
[2023-07-16 11:08] LABS: Glucose Point of Care 191 mg/dL (70-110)
--- NOTE | 2023-07-16 11:43 | P.PN_ITS ---
Vitals/I&O/Wt Last Vital Signs Temp 98.2 F 07/16/23 10:34 Pulse 93 07/16/23 10:24 Resp 15 07/16/23 04:40 BP 115/91 07/16/23 04:40 Pulse Ox 96 07/16/23 10:24 O2 Del Method Room Air 07/16/23 10:24 O2 Flow Rate 4 07/14/23 23:08 07/15/23 07/16/23 07/16/23 22:59 06:59 14:59 Intake Total 1187.5 / 3636.666 1480 / 5116.666 1070 / 1070 Output Total 650 / 920 1000 / 1920 Balance 537.5 / 2716.666 480 / 3196.666 1070 / 1070 Weight last 48 hrs Weight 270 lb Weight 275 lb Physical Exam 2 Urinary Catheter Management: Villa: Cath Placed During This Visit: yes Reason for Continuing Indwelling Catheter: Accurate Measurement of Urinary Output in Critically Ill Patients Urinary Catheter Date of Insertion: 07/14/23 Urinary Catheter Time of Insertion: 14:00 Data 07/16/23 04:13 07/16/23 04:13 Micro: Microbiology 07/16/23 04:15 Blood Culture - Preliminary Blood SPECIMEN COLLECTED 07/16/23 04:13 Blood Culture - Preliminary Blood SPECIMEN COLLECTED 07/14/23 18:53 Blood Culture - Preliminary Blood NEGATIVE TO DATE 07/14/23 12:54 Blood Culture - Preliminary Blood Proteus mirabilis 07/14/23 14:20 Urine Culture - Preliminary Urine,Clean Catch 07/15/23 08:35 Legionella Urinary Antigen - Final Unknown Source A&P Assessment and plan (1) Unstageable decubitus ulcer with suspected deep tissue injury: (2) Wound of lower extremity: Plan Debridement of right hip and bilateral leg wounds The risks and benefits of the procedure, including but not limited to, bleeding, infection, scar, numbness, pain, nonhealing, were explained to the patient. She is understanding of these risks and wishes to proceed. Attestations 2 Medical Necessity Statement*: Per primary Coding Level of Care Code Acute Code for [facility] Fwd Diagnoses Unstageable decubitus ulcer with suspected deep tissue injury L89.95 Wound of lower extremity S81.809A
--- NOTE | 2023-07-16 12:14 | P.ANESASSM_ITS ---
Pre-Anesthetic Assessment Height/Weight: Height 1.63 m Weight 122.47 kg Temp Pulse Resp BP Pulse Ox O2 Del Method O2 Flow Rate 98.2 F 93 15 115/91 96 Room Air 4 07/16/23 10:34 07/16/23 10:24 07/16/23 04:40 07/16/23 04:40 07/16/23 10:24 07/16/23 10:24 07/14/23 23:08 Preop Diagnosis: pressure ulcers Operation Date: 07/16/23 11:30 Proposed Procedures p Debridement(Bilateral) - Demetrius Morejon, DO Was Beta Gemini taken within 24 hours: N/A Was Clonidine taken within 24 hours: N/A Social No tobacco Airway Submandibular: within normal limits Cervical ROM: within normal limits Mallampati: Class III Dentition: full History/ROS No significant history except as noted Pulmonary None reported CV/HEM Hypertension watching function with rhabdo GI Gastroesophageal Reflux Disease Metabolic Morbid Obesity and Thyroid Disease mobility limited Musc/skel None reported mobility limited Neuropsych None reported Anesthetic Plan ASA status: 3 Anesthesia: General Risk of > 500 ml blood loss (7ml/kg in children): No Medications/Allergies Home Medications Medication Instructions Recorded Confirmed Last Taken Type aspirin 81 mg tablet,delayed 81 mg PO DAILY 01/01/20 07/14/23 Unknown History release (Adult Low Dose Aspirin) levothyroxine 100 mcg tablet 100 mcg PO Q7D 07/14/23 07/14/23 Unknown History levothyroxine 88 mcg tablet 88 mcg PO DAILY 07/14/23 07/14/23 Unknown History lisinopril 20 2 tab PO DAILY 07/14/23 07/14/23 Unknown History mg-hydrochlorothiazide 12.5 mg tablet Allergies Allergy/AdvReac Type Severity Reaction Status Date / Time Penicillins Allergy RASH Verified 07/14/23 11:49 Current Medications Generic Name Dose Route Start Last Admin Trade Name Freq PRN Reason Stop Dose Admin Aspirin 81 mg 07/15/23 09:00 07/16/23 08:38 Aspirin 81 Mg Ec Tablet PO 81 mg DAILY AKBAR Administration Heparin Sodium (Porcine) 5,000 unit 07/14/23 18:34 07/16/23 06:23 Heparin 5,000 Unit/Ml Inj 1 Ml SUBCUT 5,000 unit Q12H AKBAR Administration Dextrose/Sodium Chloride 1,000 mls @ 125 mls/hr 07/14/23 18:34 07/16/23 10:50 Dextrose 5%-Sod Chloride 0.9% IV 125 mls/hr .Q8H AKBAR Administration Meropenem 1,000 mg/ Sodium 50 mls @ 100 mls/hr 07/14/23 19:00 07/16/23 11:49 Chloride IV Infused Q8H AKBAR Infusion Protocol Vancomycin/PEG/NADA/Lysine/Water 1,500 mg in 300 mls @ 200 mls/hr 07/15/23 14:00 07/15/23 15:25 Vancocin IV Infused Q36H AKBAR Infusion Insulin Human Lispro 0 unit 07/15/23 18:00 07/16/23 06:24 Insulin Lispro 100 Unit/1 Ml SUBCUT 5 unit Q6H AKBAR Administration Protocol Levothyroxine Sodium 88 mcg 07/15/23 08:10 07/16/23 08:38 Levothyroxine 88 Mcg Tablet PO 88 mcg DAILY AKBAR Administration Morphine Sulfate 2 mg 07/14/23 18:34 07/16/23 03:28 Morphine 4 Mg/Ml Sdv 1 Ml IVP 2 mg Q4H PRN Administration SEVERE PAIN Pantoprazole Sodium 40 mg 07/14/23 18:34 07/15/23 17:22 Pantoprazole 40 Mg Sdv IVP 40 mg Q24H AKBAR Administration PFSH Anesthesia Medical History COVID Hypothyroidism Hypertension Social History Smoking and tobacco/nicotine status: current every day tobacco/nicotine user Alcohol intake: never Substance/Drug Use: never Data Anesthesia 07/16/23 04:13 07/16/23 04:13 Short CBC 07/14/23 07/15/23 07/16/23 Range/Units 12:54 04:04 04:13 WBC 22.92 H 16.31 H 15.37 H (3.29-11.43) 10^3/uL Hgb 14.90 11.70 11.20 L (11.27-16.99) g/dL Hct 48.6 H 39.2 38.7 (36-47) % MCV 93.8 96.1 97.7 (85-98) fl Plt Count 355 199 D 169 (157-399) 10^3/cmm Neut % (Auto) 87.2 85.6 85.7 % Neut # (Auto) 19.98 H 13.96 H 13.18 H (1.8-7.7) 10^3/uL BMP 07/14/23 07/14/23 07/14/23 12:54 12:54 12:54 Sodium 158 H Cancelled Potassium 4.6 Cancelled Chloride 117 H Carbon Dioxide BUN Creatinine Glucose Calcium 07/14/23 07/14/23 07/14/23 12:54 12:54 12:54 Sodium Potassium Chloride Cancelled Carbon Dioxide 24 Cancelled BUN 107 H* Cancelled Creatinine 2.7 H Glucose Calcium 07/14/23 07/14/23 07/14/23 12:54 12:54 12:54 Sodium Potassium Chloride Carbon Dioxide BUN Creatinine Cancelled Glucose 276 H Cancelled Calcium 9.6 Cancelled 07/14/23 07/15/23 07/15/23 19:54 04:04 16:28 Sodium 159 H 152 H 149 H Potassium 4.0 3.6 3.9 Chloride 122 H 118 H 116 H Carbon Dioxide 23 23 BUN 50 H 100 H* D 75 H Creatinine 2.3 H 1.8 H 1.3 H Glucose 250 H 333 H 317 H Calcium 8.5 8.1 L 8.1 L 07/16/23 04:13 Sodium 150 H Potassium 3.8 Chloride 119 H Carbon Dioxide 23 BUN 58 H Creatinine 1.1 H Glucose 218 H Calcium 8.3 L Cardiac Enzymes 07/14/23 07/15/23 07/15/23 Range/Units 12:54 04:04 16:28 Creatine Kinase 5748 H* 4032 H* 2738 H* (26-192) U/L 07/16/23 Range/Units 04:13 Creatine Kinase 1806 H* (26-192) U/L Liver Function 07/14/23 07/15/23 07/16/23 Range/Units 12:54 04:04 04:13 Total Bilirubin 0.8 0.5 0.2 (0.15-1.2) mg/dL AST 141 H 93 H 58 H (0-32) U/L ALT 88 H 59 H 49 H (0-33) U/L Alkaline Phosphatase 109 H 79 78 (35-105) U/L Albumin 3.2 L 2.2 L 2.0 L (3.5-5.2) g/dL Urine 07/14/23 Range/Units 14:20 Urine Color Yellow (Yellow) Urine Appearance Hazy A (CLEAR) Urine pH 5 (5-7) Ur Specific [place] 1.025 (1.005-1.030) Urine Protein 2+ H (Negative) Urine Glucose (UA) 1+ H (Normal) Urine Ketones 1+ H (Negative) Urine Nitrate Positive H (Negative) Urine Bilirubin 2+ H (Negative) Ur Leukocyte Esterase 1+ H (Negative) Urine RBC 15-25 H (0-2) /hpf Urine WBC 0-4 H (0-5) /hpf Ur Renal Epithelial Cell 0-4 /hpf COVID Results 07/15/23 00:30 Coronavirus 229E (PCR) Not detected SARS-CoV-2 (PCR) Not detected Coags 07/14/23 12:54 PT 17.00 H INR 1.34 H Microbiology 07/16/23 04:15 Blood Culture - Preliminary Blood SPECIMEN COLLECTED 07/16/23 04:13 Blood Culture - Preliminary Blood SPECIMEN COLLECTED 07/14/23 18:53 Blood Culture - Preliminary Blood NEGATIVE TO DATE 07/14/23 12:54 Blood Culture - Preliminary Blood Proteus mirabilis 07/14/23 14:20 Urine Culture - Preliminary Urine,Clean Catch 07/15/23 08:35 Legionella Urinary Antigen - Final Unknown Source Cardiac Studies: 2 No Data to Display
[2023-07-16] MEDS: lidocaine-epi 2% 20 mL INJ INJECTION (13:39)
--- NOTE | 2023-07-16 13:57 | PM.OP ---
Operative Report Date of procedure: July 16, 2023 Pre-op diagnosis: Unstageable decubitus ulcers of right hip and bilateral legs Post-op diagnosis: Stage III decubitus ulcers of right hip and bilateral legs Procedure done: Sharp excisional debridement of right hip measuring 30 x 18 x 3 cm Sharp excisional debridement of right leg measuring 10 x 4 x 0.5 cm Strep excisional debridement of left thigh measuring 10 x 3 x 0.5 cm and 4 x 2 x 0.5 cm Sharp excisional debridement of right leg measuring 3 x 1.5 x 0.5 cm Specimens removed/disposition: cultures Surgeon: Demetrius Morejon DO Estimated blood loss (mL): 50 Complications: none apparent Brief History: This is a 63 year old female who was found down at home. She has multiple decubitus ulcers that require sharp excisional debridement. The risks and benefits were explained and understood. She wished to proceed. Procedure: General endotracheal intubation was achieved by the department of anesthesia. A timeout was performed. All present were in agreement. Using bovie cautery and curettes, sharp excisional debridement was performed on the following areas down to healthy bleeding tissue: Sharp excisional debridement of right hip measuring 30 x 18 x 3 cm Sharp excisional debridement of right leg measuring 10 x 4 x 0.5 cm Strep excisional debridement of left thigh measuring 10 x 3 x 0.5 cm and 4 x 2 x 0.5 cm Sharp excisional debridement of right leg measuring 3 x 1.5 x 0.5 cm Hemostasis was controlled with electrocautery. Sterile bandages were applied. Patient tolerated procedure well and was wheeled back to the ICU.
--- NOTE | 2023-07-16 14:56 | ANE.PACU2 ---
Inpatient post-anesthesia follow up: Airway intact: Yes Vital signs: Temperature 98.0 F Pulse Rate 98 Respiratory Rate 18 Blood Pressure 154/88 Pulse Oximetry 97 Oxygen Delivery Me thod [ Room Air Current Rate & Del katharine] Oxygen Delivery Me thod Room Air Oxygen Flow Rate 4 Fraction of Inspir ed Oxygen Hydration adequate: Yes Nausea and vomiting: No Pain level: 1 Mental status: Baseline
[2023-07-16] MEDS: HYDROmorphone 1 mg/mL INJ 1 mL IVP (15:32)
--- NOTE | 2023-07-16 17:28 | PM.PN ---
Subjective Subjective: No acute events overnight. Patient has remained hemodynamically stable and afebrile. Seen with multiple family members at bedside. Patient is due for debridement today. Patient still requiring IV pain medications. Blood work appreciated. Urine output improving. Vitals/I&O/Wt Last Vital Signs Temp 98.0 F 07/16/23 12:34 Pulse 89 07/16/23 16:44 Resp 12 07/16/23 16:44 BP 131/103 07/16/23 16:44 Pulse Ox 95 07/16/23 16:44 O2 Del Method Nasal Cannula 07/16/23 16:44 O2 Flow Rate 1.5 07/16/23 16:44 07/16/23 07/16/23 07/16/23 06:59 14:59 22:59 Intake Total 1480 / 5116.666 1120 / 1120 422 / 1542 Output Total 1000 / 1920 750 / 750 Balance 480 / 3196.666 1120 / 1120 -328 / 792 Weight last 48 hrs Weight 122.47 kg Physical Exam Narrative: General: No acute distress, AO x3, mildly confused HEENT: PERRLA, pupils bilaterally equal and reactive Chest: Bronchial breath sounds all over lung rodgers with occasional rhonchi and decreased air entry bilateral lower zone CVS: S1-S2 regular, no murmurs, tachycardia, no gallops, no rubs Abdomen: Soft, nontender, no organomegaly, bowel sounds present Neuro: No focal deficits, no facial deformity, AO x3, power 4 x 5 in both upper limbs, lower limbs cannot be assessed Extremity: Bilateral lower limb 1+ pitting edema, left leg as below with foul-smelling wounds with serosanguineous discharge Extremity: OTHER: Decub Urinary Catheter Management: [place]: Cath Placed During This Visit: yes Reason for Continuing Indwelling Catheter: Accurate Measurement of Urinary Output in Critically Ill Patients Urinary Catheter Date of Insertion: 07/14/23 Urinary Catheter Time of Insertion: 14:00 Data 07/16/23 04:13 07/16/23 04:13 Micro: Microbiology 07/16/23 04:15 Blood Culture - Preliminary Blood SPECIMEN COLLECTED 07/16/23 04:13 Blood Culture - Preliminary Blood SPECIMEN COLLECTED 07/14/23 18:53 Blood Culture - Preliminary Blood NEGATIVE TO DATE 07/14/23 12:54 Blood Culture - Preliminary Blood Proteus mirabilis A&P Assessment and plan (1) Fall: Unknown etiology. Unwitnessed. Component of rhabdomyolysis with elevated CPK. Slight improvement in CPK today. IV fluids at 125 cc/h. Appreciate TSH, CPK B12 and folate levels. Awaiting PT evaluation. (2) Bacterial infection due to Proteus mirabilis: (3) Sepsis: Ruled on admission with tachycardia, altered mental status, target organ dysfunction with renal dysfunction, elevated lactate. Respiratory viral panel negative. MRSA swab pending. For now continue with renally dosed vancomycin and meropenem. Blood cultures growing Proteus mirabilis. Will de-escalate antibiotics as per culture sensitivity. Repeat blood culture in AM. Patient would need contrast study for CT hip and CT left leg. Will hold off for now and await further improvement in renal functions. Consult surgery. Wound care for now with Hydrofera Blue. Will await surgical recommendations. (4) Acute cystitis: Follow-up urine culture Qualifiers: Hematuria presence: without hematuria Qualified Code(s): N30.00 - Acute cystitis without hematuria (5) Wound cellulitis: Surgical consultation as above. Might need debridement. Antibiotics as above. (6) Acute kidney injury: Most likely in setting of dehydration along baseline home dose of lisinopril and hydrochlorothiazide. Improving. Medical reconciliation done for nephrotoxic drugs. CT abdomen pelvis rule out obstructive nephropathy. IV fluids as above. Monitor BMP daily. No metabolic acidosis currently. (7) Hypernatremia: Improving. Down to 152. IV fluids as above. Repeat BMP in evening. (8) Rhabdomyolysis: Repeat CPK in AM. Fluid as above. Qualifiers: Rhabdomyolysis type: non-traumatic Qualified Code(s): M62.82 - Rhabdomyolysis (9) Elevated lactic acid level: (10) Transaminitis: Most likely in setting of severe rhabdomyolysis. (11) Pressure ulcer: (12) Hypothyroidism: Plan Hypertension: Goal blood pressure less than 140/90 mmHg. For now hold off on antihypertensives. If needed will add amlodipine depending on the blood pressures. CODE STATUS: Patient is awake and alert. Wants to remain full code. Patient's family including sister would be the DPOA. Regular diet Heparin 5000 every 12 hourly for DVT prophylaxis Protonix for PUD prophylaxis Patient is significantly deconditioned. Most likely patient will need IV antibiotics and surgical debridement. Patient will need antibiotics for at least 14 days after clearing of blood cultures if patient does not have any osteomyelitis otherwise will need a longer course of antibiotics. Awaiting PT evaluation the patient would most likely need aggressive wound care and physical therapy going forward. Case management alerted for possible placement to SNF versus LTAC. Plan for the day: Plan for debridement today. Will follow-up or cultures. Repeat blood cultures sent today. Blood culture from admission positive for Proteus mirabilis. MRSA positive. For now continue with IV vancomycin and meropenem. Monitor renal function every 12 hourly. Creatinine improving down to 1.1. Continue with current IV fluids. Sodium stable at 150. Keep n.p.o. for now. Plan for restarting diet after debridement. CPK resolving. Repeat CPK in AM. Continue with current IV hydration for rhabdomyolysis. Will plan for physical therapy in next few days after debridement. Wound care as per surgical team. Start on [place] 7.5 every 6 as needed. Will plan to switch to Dilaudid after OR. Attestations Medical Necessity Statement*: Requires further hospitalization for management of significant decubitus ulcer, Proteus bacteremia, hypernatremia, acute kidney injury in a patient who was found down resulting in rhabdomyolysis, morbid obesity while safe discharge planning. Diagnoses Fall W19.XXXA Bacterial infection due to Proteus mirabilis A49.8 Sepsis A41.9 Acute cystitis N30.00 Hematuria presence: without hematuria Wound cellulitis L03.90 Acute kidney injury N17.9 Hypernatremia E87.0 Rhabdomyolysis M62.82 Rhabdomyolysis type: non-traumatic Elevated lactic acid level R79.89 Transaminitis R74.01 Pressure ulcer L89.90 Hypothyroidism E03.9
[2023-07-16 17:40] LABS: Glucose Point of Care 196 mg/dL (70-110)
[2023-07-16] MEDS: pantoprazole 40 mg SDV IVP (17:41)
[2023-07-16 18:30] LABS: Anion Gap 11.1 (5-19); Blood Urea Nitrogen 48 mg/dL (8-23); Calcium 7.8 mg/dL (8.5-10.5); Carbon Dioxide 23 mmol/L (22-29); Chloride 120 mmol/L (98-107); Glomerular Filtration Rate 50.2 mL/min (90-130); Glucose 330 mg/dL (65-115); Osmolality Calculated 335 mOsm/kg (285-295); Potassium 4.1 mmol/L (3.5-5.1); Sodium 150 mmol/L (136-145)
--- NOTE | 2023-07-16 18:41 | PC.NURSE ---
Shift summary- Patient resting in bed with minimal pain reported for beginning of shift only when turning and wound care patient reports pain. Dr. Morejon performed wound debridement, patient resting in bed on 1.5L NC with Dilaudid for pain control, patient reports this is effective. New wound care orders from Dr. Morejon for wet to dry dressings. Urine output as documented.
[2023-07-16] MEDS: tranexamic acid 1,000 MG/100 ML PREMIX 600 MG IV ×2 (19:15→20:45)
[2023-07-16 20:05] LABS: Hematocrit 31.1 % (36-47)
[2023-07-16] MEDS: lanolin oint 7 gm 1 APPLIC TOPICAL (20:45)
--- NOTE | 2023-07-16 23:14 | PC.NURSE ---
Patient found to have significant bleeding from right hip debridement upon nursing bedside report. Estimated blood loss of 500ml reported to surgeon. Order for 1 gram TXA now and 1 hour from now received from Dr. Enriquez along with holding pressure for 5min and check for bleeding. Wet to dry dressings applied and covered in ABD. Frequent checks show minimal blood loss through dressings. Frequent turns provided maintaining pressure support on bandages. HGB checked.
[2023-07-16 23:39] LABS: Glucose Point of Care 305 mg/dL (70-110)
[2023-07-17] VITALS (170 sets, daily range): BP systolic 86–160; BP diastolic 52–121; PULSE 80–103; RESP 9–35; TEMP 36.5–37.1; O2SAT 84–100
[2023-07-17] MEDS: insulin lispro 100 unit/1 mL SUBCUT ×2 (00:03→06:01)
[2023-07-17] MEDS: vancomycin 1,500 MG/300 ML PIGGYBACK 200 MG IV (02:44)
[2023-07-17] MEDS: meropenem 1,000 MG in sodium chloride 0.9% (plus) 50 ML 100 MG IV ×2 (02:44→10:48)
[2023-07-17] MEDS: dextrose 5%-sod chloride 0.9% 1,000 ML 125 ML IV (02:45)
[2023-07-17] MEDS: HYDROmorphone 1 mg/mL INJ 1 mL 0.5 MG IVP ×3 (02:54→23:15)
[2023-07-17 05:03] LABS: Basophils % 0.1 %; Eosinophils # 0.1 10^3/uL (0.0-0.8); Eosinophils % 0.9 %; Hematocrit 29.2 % (36-47); Lymphocytes # 1.9 10^3/uL (0.8-4.8); Lymphocytes % 12.7 %; Mean Corpuscular HGB Conc 28.8 g/dL (30-55); Mean Corpuscular Volume 97.3 fl (85-98); Mean Platelet Volume 12.9 fL (7.4-10.4); Monocytes # 0.5 10^3/uL (0.2-0.9); Neutrophils # 12.49 10^3/uL (1.8-7.7); Neutrophils % 82.4 %; Nucleated Red Blood Cells # 0.1 /100WBC; Nucleated Red Blood Cells % 0.3 %; Platelet Count 155 10^3/cmm (157-399); White Blood Count 15.16 10^3/uL (3.29-11.43)
--- NOTE | 2023-07-17 05:50 | PC.NURSE ---
Patient noted to have significant blood pooling on right hip this morning. Patient was turned with pressure applied and 4x4 sponges placed wet to dry. Dr. Morejon notified of changes along with morning Hgb level. Instructions given to keep pressure applied through positioning. Vitals remain stable.
[2023-07-17 05:54] LABS: Alanine Aminotransferase 37 U/L (0-33); Albumin Level 1.8 g/dL (3.5-5.2); Alkaline Phosphatase 68 U/L (35-105); Anion Gap 9.9 (5-19); Aspartate Amino Transferase 40 U/L (0-32); Blood Urea Nitrogen 39 mg/dL (8-23); Calcium 7.4 mg/dL (8.5-10.5); Carbon Dioxide 23 mmol/L (22-29); Chloride 116 mmol/L (98-107); Globulin 3.7 g/dL (1.3-4.6); Glomerular Filtration Rate 63.2 mL/min (90-130); Glucose 202 mg/dL (65-115); Osmolality Calculated 315 mOsm/kg (285-295); Potassium 3.9 mmol/L (3.5-5.1); Sodium 145 mmol/L (136-145); Total Bilirubin 0.3 mg/dL (0.15-1.2); Total Protein 5.5 g/dL (6.6-8.7)
[2023-07-17 05:58] LABS: Glucose Point of Care 146 mg/dL (70-110)
[2023-07-17 06:12] LABS: Creatine Phosphokinase 1025 U/L (26-192)
[2023-07-17 07:48] LABS: Glucose Point of Care 192 mg/dL (70-110)
[2023-07-17] MEDS: iron sucrose 200 MG in sodium chloride 0.9% (100 ml) 100 ML 220 MG IV (09:35)
[2023-07-17] MEDS: levothyroxine 88 mcg Tablet PO (09:35)
[2023-07-17] MEDS: collagenase oint 30 gm 1 APPLIC TOPICAL (09:35)
[2023-07-17] MEDS: aspirin 81 mg EC Tablet PO (10:48)
[2023-07-17] MEDS: dextrose 5%-sod chloride 0.9% 1,000 ML 75 ML IV ×2 (10:48→22:03)
[2023-07-17 11:04] LABS: Glucose Point of Care 196 mg/dL (70-110)
--- NOTE | 2023-07-17 14:45 | P.PN_ITS ---
Subjective 2 Subjective: No acute events overnight. Patient underwent debridement yesterday. Patient did have bleeding from the debridement wound from right hip for which she had 3 dressing changes. Today morning had a another dressing change with surgical team and bleeding seems to have slowed down. Patient has remained hemodynamically stable and afebrile. Patient states he is feeling slightly better. Pain well-controlled for now. Blood work appreciated. Vitals/I&O/Wt Last Vital Signs Temp 97.9 F 07/17/23 12:44 Pulse 92 07/17/23 12:00 Resp 12 07/17/23 12:00 BP 139/92 07/17/23 12:00 Pulse Ox 100 07/17/23 12:00 O2 Del Method Nasal Cannula 07/17/23 12:00 O2 Flow Rate 1.5 07/17/23 09:31 07/16/23 07/17/23 07/17/23 22:59 06:59 14:59 Intake Total 2828.25 / 3948.25 1000 / 4948.25 2978 / 2978 Output Total 750 / 750 600 / 1350 250 / 250 Balance 2078.25 / 3198.25 400 / 3598.25 2728 / 2728 Physical Exam 2 Narrative: General: No acute distress, AO x3, mildly confused HEENT: PERRLA, pupils bilaterally equal and reactive Chest: Bronchial breath sounds all over lung rodgers with occasional rhonchi and decreased air entry bilateral lower zone CVS: S1-S2 regular, no murmurs, tachycardia, no gallops, no rubs Abdomen: Soft, nontender, no organomegaly, bowel sounds present Neuro: No focal deficits, no facial deformity, AO x3, power 4 x 5 in both upper limbs, lower limbs cannot be assessed Extremity: Bilateral lower limb 1+ pitting edema, left leg as below with foul- smelling wounds with serosanguineous discharge Extremity: OTHER: Wounds on admission. Now have been debrided and surgically bandaged. Left medial thigh and lateral leg as below Decub/right hip Urinary Catheter Management: [place]: Cath Placed During This Visit: yes Reason for Continuing Indwelling Catheter: Accurate Measurement of Urinary Output in Critically Ill Patients Urinary Catheter Date of Insertion: 07/14/23 Urinary Catheter Time of Insertion: 14:00 Data 07/17/23 03:35 07/17/23 03:35 Micro: Microbiology 07/14/23 12:54 Blood Culture - Preliminary Blood Proteus mirabilis 07/14/23 14:20 Urine Culture - Final Urine,Clean Catch 07/16/23 04:15 Blood Culture - Preliminary Blood NEGATIVE TO DATE 07/16/23 04:13 Blood Culture - Preliminary Blood NEGATIVE TO DATE A&P Assessment and plan (1) Fall: Unknown etiology. Unwitnessed. Component of rhabdomyolysis with elevated CPK. Slight improvement in CPK today. Decrease IV fluid to 75 cc/h. Appreciate TSH, CPK B12 and folate levels. PT evaluation. (2) Bacterial infection due to Proteus mirabilis: Sensitivities available today. Switch to cefepime from meropenem. (3) Sepsis: Ruled on admission with tachycardia, altered mental status, target organ dysfunction with renal dysfunction, elevated lactate. Respiratory viral panel negative. MRSA swab positive. Continue with IV vancomycin. Switching meropenem to cefepime as above. Blood cultures growing Proteus mirabilis. Repeat blood cultures so far negative. CT head negative for deep abscess or osteomyelitis. (4) Acute cystitis: Follow-up urine culture Qualifiers: Hematuria presence: without hematuria Qualified Code(s): N30.00 - Acute cystitis without hematuria (5) Wound cellulitis: Post debridement on 07/16. Wound care as per surgical team. Follow-up or cultures. (6) Acute kidney injury: Most likely in setting of dehydration along baseline home dose of lisinopril and hydrochlorothiazide. Resolved. Medical reconciliation done for nephrotoxic drugs. CT abdomen pelvis rule out obstructive nephropathy. IV fluids as above. Monitor BMP daily. No metabolic acidosis currently. (7) Hypernatremia: Resolved. IV fluids as above. Repeat BMP in evening. (8) Rhabdomyolysis: Improving. Fluid as above. Qualifiers: Rhabdomyolysis type: non-traumatic Qualified Code(s): M62.82 - Rhabdomyolysis (9) Elevated lactic acid level: (10) Transaminitis: Most likely in setting of severe rhabdomyolysis. Resolving (11) Pressure ulcer: (12) Hypothyroidism: Plan Protein energy malnutrition: Albumin 1.8. Start on IV albumin. Protein shakes with meals. Will help with fast healing. Hypertension: Goal blood pressure less than 140/90 mmHg. For now hold off on antihypertensives. If needed will add amlodipine depending on the blood pressures. CODE STATUS: Patient is awake and alert. Wants to remain full code. Patient's family including sister would be the DPOA. Regular diet Holding heparin 5000 every 12 hourly for DVT prophylaxis given extensive bleeding from hip wound. Will restart heparin once bleeding stops. Protonix for PUD prophylaxis Transfer [facility] of ICU to [facility]. Patient is significantly deconditioned. Most likely patient will need IV antibiotics and surgical debridement. Patient will need antibiotics for at least 14 days after clearing of blood cultures if patient does not have any osteomyelitis otherwise will need a longer course of antibiotics. Awaiting PT evaluation the patient would most likely need aggressive wound care and physical therapy going forward. Patient has been accepted to LTAC and are starting authorization today. Patient is agreeable. If repeat blood cultures remain negative we will plan for PICC line placement in next 24 hours. For now we will plan to continue IV antibiotics for at least 4 weeks. Will continue IV cefepime daily for 4 weeks. MRSA positive so for now we will continue vancomycin. If the OR cultures negative for MRSA can discontinue vancomycin after 1 week course. Attestations 2 Medical Necessity Statement*: Requires further hospitalization for management of significant pressure/decub ulcer. Debridement, Proteus bacteremia, severe physical deconditioning while safe discharge planning is sought Diagnoses Fall W19.XXXA Bacterial infection due to Proteus mirabilis A49.8 Sepsis A41.9 Acute cystitis N30.00 Hematuria presence: without hematuria Wound cellulitis L03.90 Acute kidney injury N17.9 Hypernatremia E87.0 Rhabdomyolysis M62.82 Rhabdomyolysis type: non-traumatic Elevated lactic acid level R79.89 Transaminitis R74.01 Pressure ulcer L89.90 Hypothyroidism E03.9
[2023-07-17] MEDS: magnesium hydroxide 30 mL UDC PO (15:01)
[2023-07-17] MEDS: cefepime 1,000 MG in sodium chloride 0.9% (plus) 50 ML 100 MG IV (15:08)
[2023-07-17] MEDS: albumin 25 G/100 ML BAG 60 G IV ×2 (15:08→22:02)
[2023-07-17] MEDS: HYDROcodone-acetaminophen 7.5-325 mg Tablet 1 TAB PO (16:03)
--- NOTE | 2023-07-17 17:21 | PC.NURSE ---
Patient transferred to second floor room 253-2, Patient resting in bed on room air with MS nurse, Air at bedside. Patient has no complaints or requests at this time. All belongings with patient in OZH bag. Paper chart left with floor staff. See stable vitals charted. Dressed wounds assessed with Ari.
[2023-07-17] MEDS: pantoprazole 40 mg SDV IVP (18:34)
[2023-07-18] VITALS (15 sets, daily range): BP systolic 108–164; BP diastolic 60–93; PULSE 86–98; RESP 16–18; TEMP 36.2–37.1; O2SAT 90–97
[2023-07-18] MEDS: cefepime 1,000 MG in sodium chloride 0.9% (plus) 50 ML 100 MG IV ×2 (02:02→16:40)
[2023-07-18] MEDS: HYDROcodone-acetaminophen 7.5-325 mg Tablet 1 TAB PO ×3 (05:43→19:54)
[2023-07-18] MEDS: albumin 25 G/100 ML BAG 60 G IV ×3 (05:43→23:40)
[2023-07-18 06:00] LABS: Glucose Point of Care 243 mg/dL (70-110)
[2023-07-18 06:00] LABS: Basophils % 0.2 %; Eosinophils # 0.2 10^3/uL (0.0-0.8); Eosinophils % 1.9 %; Lymphocytes # 2.1 10^3/uL (0.8-4.8); Lymphocytes % 16.5 %; Mean Corpuscular HGB Conc 29.1 g/dL (30-55); Mean Corpuscular Hemoglobin 28.5 pg (27-33); Mean Corpuscular Volume 97.9 fl (85-98); Mean Platelet Volume 12.8 fL (7.4-10.4); Monocytes # 0.4 10^3/uL (0.2-0.9); Monocytes % 3.2 %; Neutrophils # 9.89 10^3/uL (1.8-7.7); Neutrophils % 76.1 %; Nucleated Red Blood Cells # 0.1 /100WBC; Nucleated Red Blood Cells % 1.1 %; Platelet Count 134 10^3/cmm (157-399); Red Blood Count 2.35 10^6/uL (3.85-5.65); Red Cell Distribution Width 15.6 % (12.1-15.1); White Blood Count 12.97 10^3/uL (3.29-11.43)
[2023-07-18 06:18] LABS: Alanine Aminotransferase 28 U/L (0-33); Albumin Level 2.6 g/dL (3.5-5.2); Alkaline Phosphatase 58 U/L (35-105); Anion Gap 9.8 (5-19); Aspartate Amino Transferase 35 U/L (0-32); Blood Urea Nitrogen 38 mg/dL (8-23); Calcium 7.9 mg/dL (8.5-10.5); Carbon Dioxide 22 mmol/L (22-29); Chloride 113 mmol/L (98-107); Globulin 3.2 g/dL (1.3-4.6); Glomerular Filtration Rate 72.4 mL/min (90-130); Glucose 228 mg/dL (65-115); Osmolality Calculated 308 mOsm/kg (285-295); Potassium 3.8 mmol/L (3.5-5.1); Sodium 141 mmol/L (136-145); Total Bilirubin 0.3 mg/dL (0.15-1.2); Total Protein 5.8 g/dL (6.6-8.7)
[2023-07-18 07:56] LABS: Reticulocyte % 3.1 % (0.5-2.0)
[2023-07-18] MEDS: iron sucrose 200 MG in sodium chloride 0.9% (100 ml) 100 ML 220 MG IV (10:07)
[2023-07-18] MEDS: aspirin 81 mg EC Tablet PO (10:13)
[2023-07-18] MEDS: levothyroxine 88 mcg Tablet PO (10:13)
[2023-07-18] MEDS: quetiapine 25 mg Tablet PO ×2 (10:13→17:29)
[2023-07-18 11:50] LABS: Glucose Point of Care 205 mg/dL (70-110)
--- NOTE | 2023-07-18 12:49 | P.PN_ITS ---
Subjective 2 Subjective: No acute events overnight. Patient states she is more comfortable in bariatric bed now. Denies any nausea, vomiting, headache. Tolerating fluids well. Documented urine output of around 1 L in last 24 hours. Dressings look dry. Right hip dressing changed in the evening yesterday. Blood work appreciated. Vitals/I&O/Wt Last Vital Signs Temp 97.5 F L 07/18/23 11:23 Pulse 92 07/18/23 11:43 Resp 18 07/18/23 11:23 BP 133/66 07/18/23 11:43 Pulse Ox 92 07/18/23 11:43 O2 Del Method Room Air 07/18/23 04:00 O2 Flow Rate 1.5 07/17/23 09:31 07/17/23 07/18/23 07/18/23 22:59 06:59 14:59 Intake Total 993.75 / 3971.75 1210 / 5181.75 110 / 110 Output Total 1000 / 1250 Balance 993.75 / 3721.75 210 / 3931.75 110 / 110 Weight last 48 hrs Weight 139.298 kg Physical Exam 2 Narrative: General: No acute distress, AO x3, mildly confused HEENT: PERRLA, pupils bilaterally equal and reactive Chest: Bronchial breath sounds all over lung rodgers with occasional rhonchi and decreased air entry bilateral lower zone CVS: S1-S2 regular, no murmurs, tachycardia, no gallops, no rubs Abdomen: Soft, nontender, no organomegaly, bowel sounds present Neuro: No focal deficits, no facial deformity, AO x3, power 4 x 5 in both upper limbs, lower limbs cannot be assessed Extremity: Bilateral lower limb 1+ pitting edema, left leg as below with foul- smelling wounds with serosanguineous discharge Extremity: OTHER: Wounds on admission. Now have been debrided and surgically bandaged. Left medial thigh and lateral leg as below Decub/right hip Urinary Catheter Management: [place]: Cath Placed During This Visit: yes Reason for Continuing Indwelling Catheter: Assist Healing of Perineal & Sacral Wounds- Incontinent Patients Urinary Catheter Date of Insertion: 07/14/23 Urinary Catheter Time of Insertion: 14:00 Data 07/18/23 05:23 07/18/23 05:23 Micro: Microbiology 07/16/23 13:50 Gram Stain - Final Hip - Wound Tissue Culture - Preliminary Gram Negative Rods 07/14/23 12:54 Blood Culture - Preliminary Blood Proteus mirabilis 07/14/23 14:20 Urine Culture - Final Urine,Clean Catch A&P Assessment and plan (1) Fall: Unknown etiology. Unwitnessed. Component of rhabdomyolysis with elevated CPK. Slight improvement in CPK today. Decrease IV fluid to 75 cc/h. Appreciate TSH, CPK B12 and folate levels. PT evaluation. (2) Bacterial infection due to Proteus mirabilis: Sensitivities available today. Switch to cefepime from meropenem. (3) Sepsis: Ruled on admission with tachycardia, altered mental status, target organ dysfunction with renal dysfunction, elevated lactate. Respiratory viral panel negative. MRSA swab positive. Continue with IV vancomycin. Switching meropenem to cefepime as above. Blood cultures growing Proteus mirabilis. Repeat blood cultures so far negative. CT head negative for deep abscess or osteomyelitis. (4) Acute cystitis: Follow-up urine culture Qualifiers: Hematuria presence: without hematuria Qualified Code(s): N30.00 - Acute cystitis without hematuria (5) Wound cellulitis: Post debridement on 07/16. Wound care as per surgical team. Follow-up or cultures. (6) Acute kidney injury: Most likely in setting of dehydration along baseline home dose of lisinopril and hydrochlorothiazide. Resolved. Medical reconciliation done for nephrotoxic drugs. CT abdomen pelvis rule out obstructive nephropathy. IV fluids as above. Monitor BMP daily. No metabolic acidosis currently. (7) Hypernatremia: Resolved. IV fluids as above. Repeat BMP in evening. (8) Rhabdomyolysis: Improving. Fluid as above. Qualifiers: Rhabdomyolysis type: non-traumatic Qualified Code(s): M62.82 - Rhabdomyolysis (9) Elevated lactic acid level: (10) Transaminitis: Most likely in setting of severe rhabdomyolysis. Resolving (11) Pressure ulcer: (12) Hypothyroidism: Plan Protein energy malnutrition: Albumin 1.8. Start on IV albumin. Protein shakes with meals. Will help with fast healing. Hypertension: Goal blood pressure less than 140/90 mmHg. For now hold off on antihypertensives. If needed will add amlodipine depending on the blood pressures. CODE STATUS: Patient is awake and alert. Wants to remain full code. Patient's family including sister would be the DPOA. Regular diet Holding heparin 5000 every 12 hourly for DVT prophylaxis given extensive bleeding from hip wound. Will restart heparin once bleeding stops. Protonix for PUD prophylaxis Patient is significantly deconditioned. Most likely patient will need IV antibiotics and surgical debridement. Patient will need antibiotics for at least 14 days after clearing of blood cultures if patient does not have any osteomyelitis otherwise will need a longer course of antibiotics. Awaiting PT evaluation the patient would most likely need aggressive wound care and physical therapy going forward. Patient has been accepted to LTAC and are starting authorization today. Patient is agreeable. Plan for the day: Continue with IV vancomycin and cefepime. Follow-up OR cultures. Appreciate Proteus mirabilis sensitivities from blood culture. Patient will most likely need IV antibiotics including vancomycin and cefepime overall for 4 weeks. Wound care as per surgical team. Hemoglobin down to 6.7 today. Patient hemodynamically stable. Most likely equilibrating postoperative blood loss. Will transfuse 2 unit of PRBC today. Continue with protein shakes with diet. Continue with albumin for 1 more day. Physical therapy. Will try for edge of the bed exercises. Patient is agreeable. Aspiration precautions. Stop IV fluids. Patient tolerating diet well. Continue with insulin sliding scale at low-dose protocol. Blood sugars have been slightly elevated. A1c admission found to be 6. Continue with oral [place] 7.5 every 6 as needed. Change Dilaudid 0.5 every 8 as needed. Patient has been accepted to LTAC. Awaiting authorization. Today okay with patient continuing to have central line in place and will transition to PICC line once central line needs to be changed as per guidelines. Attestations 2 Medical Necessity Statement*: Requires further hospitalization for management of Proteus mirabilis bacteremia, infected decubitus ulcer post debridement while safe discharge planning is sought Diagnoses Fall W19.XXXA Bacterial infection due to Proteus mirabilis A49.8 Sepsis A41.9 Acute cystitis N30.00 Hematuria presence: without hematuria Wound cellulitis L03.90 Acute kidney injury N17.9 Hypernatremia E87.0 Rhabdomyolysis M62.82 Rhabdomyolysis type: non-traumatic Elevated lactic acid level R79.89 Transaminitis R74.01 Pressure ulcer L89.90 Hypothyroidism E03.9
[2023-07-18] MEDS: collagenase oint 30 gm 1 APPLIC TOPICAL (13:54)
[2023-07-18 14:07] LABS: Vancomycin Trough 6.6 ug/mL (10-15)
[2023-07-18] MEDS: vancomycin 1,500 MG/300 ML PIGGYBACK 200 MG IV (14:48)
[2023-07-18 16:51] LABS: Glucose Point of Care 193 mg/dL (70-110)
[2023-07-18] MEDS: sodium chloride 0.9% 100 mL Bag 50 ML IV (17:36)
[2023-07-18] MEDS: pantoprazole 40 mg SDV IVP (17:57)
[2023-07-18] MEDS: HYDROmorphone 1 mg/mL INJ 1 mL 0.5 MG IVP (22:47)
[2023-07-18 23:48] LABS: Glucose Point of Care 244 mg/dL (70-110)
[2023-07-19] VITALS: BP 115/69; PULSE 95; RESP 25; TEMP 37.3; O2SAT 91
[2023-07-19 00:20] LABS: Hematocrit 25.9 % (36-47)
[2023-07-19] MEDS: cefepime 1,000 MG in sodium chloride 0.9% (plus) 50 ML 100 MG IV (01:49)
[2023-07-19 04:00] VITALS: BP 127/72; PULSE 97; RESP 18; TEMP 36.8; O2SAT 93
[2023-07-19] MEDS: albumin 25 G/100 ML BAG 60 G IV (05:43)
[2023-07-19] MEDS: HYDROcodone-acetaminophen 7.5-325 mg Tablet 1 TAB PO ×2 (05:43→12:49)
[2023-07-19 06:12] VITALS: BMI 55.2
[2023-07-19 06:43] LABS: Glucose Point of Care 167 mg/dL (70-110)
[2023-07-19 06:58] LABS: Basophils # 0.1 10^3/uL (0.0-0.1); Basophils % 0.4 %; Eosinophils # 0.4 10^3/uL (0.0-0.8); Hematocrit 27.2 % (36-47); Lymphocytes # 2.1 10^3/uL (0.8-4.8); Mean Corpuscular HGB Conc 30.9 g/dL (30-55); Mean Corpuscular Hemoglobin 28.7 pg (27-33); Mean Corpuscular Volume 92.8 fl (85-98); Monocytes # 0.4 10^3/uL (0.2-0.9); Monocytes % 3.3 %; Neutrophils # 8.22 10^3/uL (1.8-7.7); Neutrophils % 71.2 %; Nucleated Red Blood Cells # 0.3 /100WBC; Nucleated Red Blood Cells % 2.4 %; Platelet Count 144 10^3/cmm (157-399); Red Blood Count 2.93 10^6/uL (3.85-5.65); Red Cell Distribution Width 16.3 % (12.1-15.1); White Blood Count 11.55 10^3/uL (3.29-11.43)
[2023-07-19 07:04] VITALS: BP 130/78; PULSE 93; RESP 18; TEMP 36.8; O2SAT 91
[2023-07-19 07:17] LABS: Alanine Aminotransferase 23 U/L (0-33); Albumin Level 3.2 g/dL (3.5-5.2); Alkaline Phosphatase 48 U/L (35-105); Anion Gap 10.7 (5-19); Aspartate Amino Transferase 28 U/L (0-32); Blood Urea Nitrogen 32 mg/dL (8-23); Calcium 8.1 mg/dL (8.5-10.5); Carbon Dioxide 25 mmol/L (22-29); Chloride 116 mmol/L (98-107); Globulin 2.8 g/dL (1.3-4.6); Glomerular Filtration Rate 84.5 mL/min (90-130); Glucose 169 mg/dL (65-115); Osmolality Calculated 317 mOsm/kg (285-295); Potassium 3.7 mmol/L (3.5-5.1); Sodium 148 mmol/L (136-145); Total Bilirubin 0.4 mg/dL (0.15-1.2)
[2023-07-19] MEDS: aspirin 81 mg EC Tablet PO (08:19)
[2023-07-19] MEDS: quetiapine 25 mg Tablet PO ×2 (08:19→17:38)
[2023-07-19] MEDS: levothyroxine 88 mcg Tablet PO (08:19)
[2023-07-19] MEDS: iron sucrose 200 MG in sodium chloride 0.9% (100 ml) 100 ML 220 MG IV (08:22)
[2023-07-19 11:14] LABS: Glucose Point of Care 142 mg/dL (70-110)
[2023-07-19] MEDS: fluticasone nasal spray 16gm Btl 1 SPRAY NASAL ×2 (11:43→17:38)
[2023-07-19] MEDS: dextrose 5%-sod chloride 0.9% 1,000 ML 75 ML IV (11:46)
[2023-07-19 12:29] VITALS: BP 137/79; PULSE 100; RESP 18; TEMP 36.6; O2SAT 91
[2023-07-19] MEDS: collagenase oint 30 gm 1 APPLIC TOPICAL (12:51)
--- NOTE | 2023-07-19 15:30 | P.PN_ITS ---
Subjective 2 Subjective: No acute events overnight. Patient has remained hemodynamically stable and afebrile. Laying comfortably in bed. Still not getting out of bed or sitting at edge of the bed by herself or with physical therapy. Denies any nausea, vomiting, headache. Discussed in detail with patient for increased oral intake. Father at bedside. Vitals/I&O/Wt Last Vital Signs Temp 97.8 F 07/19/23 12:29 Pulse 100 07/19/23 12:29 Resp 18 07/19/23 12:29 BP 137/79 07/19/23 12:29 Pulse Ox 91 07/19/23 12:29 O2 Del Method Room Air 07/19/23 12:29 O2 Flow Rate 1.5 07/17/23 09:31 07/19/23 07/19/23 07/19/23 06:59 14:59 22:59 Intake Total 650 / 3270 690 / 690 Output Total 1625 / 1625 Balance -975 / 1645 690 / 690 Weight last 48 hrs Weight 145.921 kg Weight 139.298 kg Physical Exam 2 Narrative: General: No acute distress, AO x3, mildly confused HEENT: PERRLA, pupils bilaterally equal and reactive Chest: Bronchial breath sounds all over lung rodgers with occasional rhonchi and decreased air entry bilateral lower zone CVS: S1-S2 regular, no murmurs, tachycardia, no gallops, no rubs Abdomen: Soft, nontender, no organomegaly, bowel sounds present Neuro: No focal deficits, no facial deformity, AO x3, power 4 x 5 in both upper limbs, lower limbs cannot be assessed Extremity: Bilateral lower limb 1+ pitting edema, left leg as below with foul- smelling wounds with serosanguineous discharge Extremity: OTHER: Wounds on admission. Now have been debrided and surgically bandaged. Left medial thigh and lateral leg as below Decub/right hip Urinary Catheter Management: [place]: Cath Placed During This Visit: yes Reason for Continuing Indwelling Catheter: Assist healing open wound Urinary Catheter Date of Insertion: 07/14/23 Urinary Catheter Time of Insertion: 14:00 Data 07/19/23 05:55 07/19/23 05:55 Micro: Microbiology 07/16/23 13:50 Gram Stain - Final Hip - Wound Anaerobic Culture - Preliminary Tissue Culture - Final Proteus mirabilis esbl A&P Assessment and plan (1) Fall: Unknown etiology. Unwitnessed. Component of rhabdomyolysis with elevated CPK. Slight improvement in CPK today. Decrease IV fluid to 75 cc/h. Appreciate TSH, CPK B12 and folate levels. PT evaluation. (2) Bacterial infection due to Proteus mirabilis: Sensitivities available today. Switch to cefepime from meropenem. (3) Sepsis: Ruled on admission with tachycardia, altered mental status, target organ dysfunction with renal dysfunction, elevated lactate. Respiratory viral panel negative. MRSA swab positive. Continue with IV vancomycin. Switching meropenem to cefepime as above. Blood cultures growing Proteus mirabilis. Repeat blood cultures so far negative. CT head negative for deep abscess or osteomyelitis. (4) Acute cystitis: Follow-up urine culture Qualifiers: Hematuria presence: without hematuria Qualified Code(s): N30.00 - Acute cystitis without hematuria (5) Wound cellulitis: Post debridement on 07/16. Wound care as per surgical team. Follow-up or cultures. (6) Acute kidney injury: Most likely in setting of dehydration along baseline home dose of lisinopril and hydrochlorothiazide. Resolved. Medical reconciliation done for nephrotoxic drugs. CT abdomen pelvis rule out obstructive nephropathy. IV fluids as above. Monitor BMP daily. No metabolic acidosis currently. (7) Hypernatremia: Resolved. IV fluids as above. Repeat BMP in evening. (8) Rhabdomyolysis: Improving. Fluid as above. Qualifiers: Rhabdomyolysis type: non-traumatic Qualified Code(s): M62.82 - Rhabdomyolysis (9) Elevated lactic acid level: (10) Transaminitis: Most likely in setting of severe rhabdomyolysis. Resolving (11) Pressure ulcer: (12) Hypothyroidism: Plan Protein energy malnutrition: Albumin 1.8. Start on IV albumin. Protein shakes with meals. Will help with fast healing. Hypertension: Goal blood pressure less than 140/90 mmHg. For now hold off on antihypertensives. If needed will add amlodipine depending on the blood pressures. CODE STATUS: Patient is awake and alert. Wants to remain full code. Patient's family including sister would be the DPOA. Regular diet Holding heparin 5000 every 12 hourly for DVT prophylaxis given extensive bleeding from hip wound. Will restart heparin once bleeding stops. Protonix for PUD prophylaxis Patient is significantly deconditioned. Most likely patient will need IV antibiotics and surgical debridement. Patient will need antibiotics for at least 14 days after clearing of blood cultures if patient does not have any osteomyelitis otherwise will need a longer course of antibiotics. Awaiting PT evaluation the patient would most likely need aggressive wound care and physical therapy going forward. Patient has been accepted to LTAC and are starting authorization today. Patient is agreeable. Plan for the day: Wound cultures growing Proteus mirabilis ESBL. Switch cefepime back to meropenem. Continue with vancomycin and meropenem for now. Plan will be to continue vancomycin and ertapenem on discharge for 4 weeks. Hemoglobin better. Continue to monitor daily for now. Patient has hypernatremia again most likely in setting of poor oral intake. Discussed in detail with the patient about increased oral intake up to 1.5 to 2 L. She verbalizes understanding. Start on D5 NS at 75 cc/h. Repeat BMP in AM. Patient has been accepted to LTAC. Awaiting authorization. Today okay with patient continuing to have central line in place and will transition to PICC line once central line needs to be changed as per guidelines. Attestations 2 Medical Necessity Statement*: Hospital hospitalist for management of decub ulcer post debridement, hypernatremia likely discharge planning is sought as patient was longer on antibiotics and aggressive physical therapy Diagnoses Fall W19.XXXA Bacterial infection due to Proteus mirabilis A49.8 Sepsis A41.9 Acute cystitis N30.00 Hematuria presence: without hematuria Wound cellulitis L03.90 Acute kidney injury N17.9 Hypernatremia E87.0 Rhabdomyolysis M62.82 Rhabdomyolysis type: non-traumatic Elevated lactic acid level R79.89 Transaminitis R74.01 Pressure ulcer L89.90 Hypothyroidism E03.9
[2023-07-19] MEDS: vancomycin 1,500 MG/300 ML PIGGYBACK 200 MG IV (15:48)
[2023-07-19] MEDS: meropenem 1,000 MG in sodium chloride 0.9% (plus) 50 ML 100 MG IV ×2 (15:55→22:40)
[2023-07-19 16:28] VITALS: BP 145/77; PULSE 95; RESP 18; TEMP 37; O2SAT 90
[2023-07-19 17:16] LABS: Glucose Point of Care 226 mg/dL (70-110)
[2023-07-19] MEDS: pantoprazole 40 mg SDV IVP (17:38)
[2023-07-19 20:00] VITALS: BP 179/92; PULSE 97; RESP 18; TEMP 36.8; O2SAT 93
[2023-07-20] VITALS (7 sets, daily range): BP systolic 138–183; BP diastolic 78–100; PULSE 89–104; RESP 16–18; TEMP 36.4–37.3; O2SAT 93–95
[2023-07-20 00:36] LABS: Glucose Point of Care 227 mg/dL (70-110)
[2023-07-20] MEDS: HYDROmorphone 1 mg/mL INJ 1 mL 0.5 MG IVP (00:45)
[2023-07-20] MEDS: acetaminophen 325 mg Tablet 650 MG PO (05:14)
[2023-07-20 05:53] LABS: Basophils % 0.3 %; Eosinophils # 0.3 10^3/uL (0.0-0.8); Eosinophils % 3.1 %; Hematocrit 27.6 % (36-47); Lymphocytes # 1.7 10^3/uL (0.8-4.8); Lymphocytes % 16.7 %; Mean Corpuscular HGB Conc 31.2 g/dL (30-55); Mean Corpuscular Volume 92.9 fl (85-98); Mean Platelet Volume 12.7 fL (7.4-10.4); Monocytes # 0.4 10^3/uL (0.2-0.9); Monocytes % 4.3 %; Neutrophils # 7.34 10^3/uL (1.8-7.7); Neutrophils % 71.5 %; Nucleated Red Blood Cells # 0.3 /100WBC; Nucleated Red Blood Cells % 2.5 %; Platelet Count 163 10^3/cmm (157-399); Red Blood Count 2.97 10^6/uL (3.85-5.65); Red Cell Distribution Width 16.3 % (12.1-15.1); White Blood Count 10.27 10^3/uL (3.29-11.43)
[2023-07-20 06:10] LABS: Glucose Point of Care 158 mg/dL (70-110)
[2023-07-20 06:12] LABS: Alanine Aminotransferase 21 U/L (0-33); Albumin Level 2.9 g/dL (3.5-5.2); Alkaline Phosphatase 50 U/L (35-105); Anion Gap 10.9 (5-19); Aspartate Amino Transferase 28 U/L (0-32); Blood Urea Nitrogen 22 mg/dL (8-23); Calcium 8.4 mg/dL (8.5-10.5); Carbon Dioxide 25 mmol/L (22-29); Chloride 114 mmol/L (98-107); Globulin 3.1 g/dL (1.3-4.6); Glucose 171 mg/dL (65-115); Osmolality Calculated 309 mOsm/kg (285-295); Potassium 3.9 mmol/L (3.5-5.1); Sodium 146 mmol/L (136-145); Total Bilirubin 0.5 mg/dL (0.15-1.2)
[2023-07-20] MEDS: meropenem 1,000 MG in sodium chloride 0.9% (plus) 50 ML 100 MG IV ×2 (08:57→16:33)
[2023-07-20] MEDS: aspirin 81 mg EC Tablet PO (08:57)
[2023-07-20] MEDS: levothyroxine 88 mcg Tablet PO (08:57)
[2023-07-20] MEDS: quetiapine 25 mg Tablet PO ×2 (08:57→18:12)
[2023-07-20] MEDS: collagenase oint 30 gm 1 APPLIC TOPICAL (08:59)
[2023-07-20] MEDS: fluticasone nasal spray 16gm Btl 1 SPRAY NASAL ×2 (08:59→18:13)
[2023-07-20] MEDS: iron sucrose 200 MG in sodium chloride 0.9% (100 ml) 100 ML 220 MG IV (09:53)
[2023-07-20] MEDS: amlodipine 10 mg Tablet PO (11:44)
[2023-07-20 13:02] LABS: Glucose Point of Care 215 mg/dL (70-110)
--- NOTE | 2023-07-20 15:15 | P.PN_ITS ---
Subjective 2 Subjective: No acute events overnight. Denies any nausea, vomiting, headache. Sitting up in chair today. Appetite seems to be improving. Remains hemodynamically stable and afebrile. Vitals/I&O/Wt Last Vital Signs Temp 97.5 F L 07/20/23 12:00 Pulse 100 07/20/23 12:00 Resp 18 07/20/23 12:00 BP 139/78 07/20/23 12:00 Pulse Ox 95 07/20/23 12:00 O2 Del Method Room Air 07/20/23 12:00 O2 Flow Rate 1.5 07/17/23 09:31 07/20/23 07/20/23 07/20/23 06:59 14:59 22:59 Intake Total 50 / 3110 1000 / 1000 Output Total 700 / 700 300 / 300 Balance -650 / 2410 700 / 700 Weight last 48 hrs Weight 146.646 kg Weight 145.921 kg Physical Exam 2 Narrative: General: No acute distress, AO x3, mildly confused HEENT: PERRLA, pupils bilaterally equal and reactive Chest: Bronchial breath sounds all over lung rodgers with occasional rhonchi and decreased air entry bilateral lower zone CVS: S1-S2 regular, no murmurs, tachycardia, no gallops, no rubs Abdomen: Soft, nontender, no organomegaly, bowel sounds present Neuro: No focal deficits, no facial deformity, AO x3, power 4 x 5 in both upper limbs, lower limbs cannot be assessed Extremity: Bilateral lower limb 1+ pitting edema, left leg as below with foul- smelling wounds with serosanguineous discharge Extremity: OTHER: Wounds on admission. Now have been debrided and surgically bandaged. Left medial thigh and lateral leg as below Decub/right hip Urinary Catheter Management: [place]: Cath Placed During This Visit: yes Reason for Continuing Indwelling Catheter: Assist Healing of Perineal & Sacral Wounds- Incontinent Patients Urinary Catheter Date of Insertion: 07/14/23 Urinary Catheter Time of Insertion: 14:00 Data 07/20/23 05:10 07/20/23 05:10 Micro: Microbiology 07/16/23 13:50 Gram Stain - Final Hip - Wound Anaerobic Culture - Preliminary Tissue Culture - Final Proteus mirabilis esbl 07/14/23 12:54 Blood Culture - Final Blood Proteus mirabilis 07/14/23 18:53 Blood Culture - Final Blood NO GROWTH AFTER 5 DAYS A&P Assessment and plan (1) Fall: Unknown etiology. Unwitnessed. Component of rhabdomyolysis with elevated CPK. Slight improvement in CPK today. Decrease IV fluid to 75 cc/h. Appreciate TSH, CPK B12 and folate levels. PT evaluation. (2) Bacterial infection due to Proteus mirabilis: Sensitivities available today. Switch to cefepime from meropenem. (3) Sepsis: Ruled on admission with tachycardia, altered mental status, target organ dysfunction with renal dysfunction, elevated lactate. Respiratory viral panel negative. MRSA swab positive. Continue with IV vancomycin. Switching meropenem to cefepime as above. Blood cultures growing Proteus mirabilis. Repeat blood cultures so far negative. CT head negative for deep abscess or osteomyelitis. (4) Acute cystitis: Follow-up urine culture Qualifiers: Hematuria presence: without hematuria Qualified Code(s): N30.00 - Acute cystitis without hematuria (5) Wound cellulitis: Post debridement on 07/16. Wound care as per surgical team. Follow-up or cultures. (6) Acute kidney injury: Most likely in setting of dehydration along baseline home dose of lisinopril and hydrochlorothiazide. Resolved. Medical reconciliation done for nephrotoxic drugs. CT abdomen pelvis rule out obstructive nephropathy. IV fluids as above. Monitor BMP daily. No metabolic acidosis currently. (7) Hypernatremia: Resolved. IV fluids as above. Repeat BMP in evening. (8) Rhabdomyolysis: Improving. Fluid as above. Qualifiers: Rhabdomyolysis type: non-traumatic Qualified Code(s): M62.82 - Rhabdomyolysis (9) Elevated lactic acid level: (10) Transaminitis: Most likely in setting of severe rhabdomyolysis. Resolving (11) Pressure ulcer: (12) Hypothyroidism: Plan Protein energy malnutrition: Albumin 1.8. Start on IV albumin. Protein shakes with meals. Will help with fast healing. Hypertension: Goal blood pressure less than 140/90 mmHg. For now hold off on antihypertensives. If needed will add amlodipine depending on the blood pressures. CODE STATUS: Patient is awake and alert. Wants to remain full code. Patient's family including sister would be the DPOA. Regular diet Holding heparin 5000 every 12 hourly for DVT prophylaxis given extensive bleeding from hip wound. Will restart heparin once bleeding stops. Protonix for PUD prophylaxis Patient is significantly deconditioned. Most likely patient will need IV antibiotics and surgical debridement. Patient will need antibiotics for at least 14 days after clearing of blood cultures if patient does not have any osteomyelitis otherwise will need a longer course of antibiotics. Awaiting PT evaluation the patient would most likely need aggressive wound care and physical therapy going forward. Patient has been accepted to LTAC and are starting authorization today. Patient is agreeable. Plan for the day: Appreciate wound and blood culture results. Continue with IV vancomycin and meropenem. Blood pressure is elevated. Add amlodipine 10 mg daily. Continue with IV fluids with D5 NS at 75 cc/h. Hyponatremia improving. Encourage patient to increase oral intake. Repeat BMP in AM. Patient has been accepted to LTAC. Awaiting authorization. Today okay with patient continuing to have central line in place and will transition to PICC line once central line needs to be changed as per guidelines. Attestations 2 Medical Necessity Statement*: Requires further hospitalization for management of infected decub ulcer, bacteremia in a patient with morbid obesity and severe physical deconditioning, hypernatremia while safe discharge planning is sought. Diagnoses Fall W19.XXXA Bacterial infection due to Proteus mirabilis A49.8 Sepsis A41.9 Acute cystitis N30.00 Hematuria presence: without hematuria Wound cellulitis L03.90 Acute kidney injury N17.9 Hypernatremia E87.0 Rhabdomyolysis M62.82 Rhabdomyolysis type: non-traumatic Elevated lactic acid level R79.89 Transaminitis R74.01 Pressure ulcer L89.90 Hypothyroidism E03.9
[2023-07-20] MEDS: vancomycin 1,500 MG/300 ML PIGGYBACK 200 MG IV (15:29)
[2023-07-20] MEDS: dextrose 5%-sod chloride 0.45% 1,000 ML 75 ML IV (16:34)
[2023-07-20 18:16] LABS: Glucose Point of Care 227 mg/dL (70-110)
[2023-07-20] MEDS: pantoprazole 40 mg SDV IVP (19:41)
[2023-07-21 00:02] LABS: Glucose Point of Care 280 mg/dL (70-110)
[2023-07-21] MEDS: meropenem 1,000 MG in sodium chloride 0.9% (plus) 50 ML 100 MG IV ×4 (00:51→23:01)
[2023-07-21 03:53] VITALS: BP 145/81; PULSE 92; RESP 14; TEMP 37.2; O2SAT 94
[2023-07-21 05:19] LABS: Basophils % 0.2 %; Eosinophils # 0.3 10^3/uL (0.0-0.8); Hematocrit 29.5 % (36-47); Lymphocytes # 1.7 10^3/uL (0.8-4.8); Lymphocytes % 18.4 %; Mean Corpuscular HGB Conc 30.5 g/dL (30-55); Mean Corpuscular Hemoglobin 28.9 pg (27-33); Mean Corpuscular Volume 94.9 fl (85-98); Mean Platelet Volume 12.5 fL (7.4-10.4); Monocytes # 0.5 10^3/uL (0.2-0.9); Monocytes % 5.2 %; Neutrophils % 70.4 %; Nucleated Red Blood Cells # 0.1 /100WBC; Nucleated Red Blood Cells % 1.2 %; Platelet Count 189 10^3/cmm (157-399); Red Blood Count 3.11 10^6/uL (3.85-5.65); Red Cell Distribution Width 16.5 % (12.1-15.1); White Blood Count 8.96 10^3/uL (3.29-11.43)
[2023-07-21 05:42] LABS: Alanine Aminotransferase 21 U/L (0-33); Albumin Level 2.7 g/dL (3.5-5.2); Alkaline Phosphatase 54 U/L (35-105); Anion Gap 8.9 (5-19); Aspartate Amino Transferase 27 U/L (0-32); Blood Urea Nitrogen 24 mg/dL (8-23); Calcium 8.3 mg/dL (8.5-10.5); Carbon Dioxide 25 mmol/L (22-29); Chloride 113 mmol/L (98-107); Globulin 3.1 g/dL (1.3-4.6); Glomerular Filtration Rate 124.6 mL/min (90-130); Glucose 206 mg/dL (65-115); Osmolality Calculated 306 mOsm/kg (285-295); Potassium 3.9 mmol/L (3.5-5.1); Sodium 143 mmol/L (136-145); Total Bilirubin 0.4 mg/dL (0.15-1.2); Total Protein 5.8 g/dL (6.6-8.7)
[2023-07-21 06:34] LABS: Glucose Point of Care 209 mg/dL (70-110)
[2023-07-21 07:21] VITALS: BP 149/84; PULSE 89; RESP 18; TEMP 36.4; O2SAT 94
[2023-07-21] MEDS: dextrose 5%-sod chloride 0.45% 1,000 ML 75 ML IV ×2 (09:04→21:46)
[2023-07-21] MEDS: levothyroxine 88 mcg Tablet PO (09:09)
[2023-07-21] MEDS: amlodipine 10 mg Tablet PO (09:09)
[2023-07-21] MEDS: quetiapine 25 mg Tablet PO ×2 (09:09→19:07)
[2023-07-21] MEDS: aspirin 81 mg EC Tablet PO (09:09)
--- NOTE | 2023-07-21 10:00 | PC.NURSE ---
Dr. Porras was notified to come to patient room per his request 07/21/2023 approximately 10-[address] Porras gave verbal orders to apply Santyl to black areas only. Wet to dry pack right buttock and apply Zinc barrier cream on lower extremities. If areas become blackened apply santyl.
[2023-07-21] MEDS: iron sucrose 200 MG in sodium chloride 0.9% (100 ml) 100 ML 220 MG IV (10:59)
[2023-07-21] MEDS: fluticasone nasal spray 16gm Btl 1 SPRAY NASAL ×2 (11:00→19:07)
[2023-07-21] MEDS: collagenase oint 30 gm 1 APPLIC TOPICAL (11:01)
[2023-07-21 12:00] VITALS: BP 131/70; PULSE 94; RESP 20; TEMP 36.9; O2SAT 91
[2023-07-21 12:08] LABS: Glucose Point of Care 223 mg/dL (70-110)
[2023-07-21 14:58] LABS: Vancomycin Trough 6.8 ug/mL (10-15)
[2023-07-21] MEDS: vancomycin 1,500 MG/300 ML PIGGYBACK 200 MG IV (15:12)
[2023-07-21 15:18] VITALS: BP 173/96; PULSE 98; RESP 18; TEMP 36.7; O2SAT 94
[2023-07-21 18:05] LABS: Glucose Point of Care 271 mg/dL (70-110)
[2023-07-21] MEDS: pantoprazole 40 mg SDV IVP (19:07)
[2023-07-21 20:00] VITALS: BP 130/80; PULSE 101; RESP 18; TEMP 36.7; O2SAT 97
--- NOTE | 2023-07-21 23:43 | P.PN_ITS ---
Subjective 2 Subjective: Her wounds are slightly better but still bothersome. She gets pain with repositioning. Vitals/I&O/Wt Last Vital Signs Temp 98.1 F 07/21/23 20:00 Pulse 101 H 07/21/23 20:00 Resp 18 07/21/23 20:00 BP 130/80 07/21/23 20:00 Pulse Ox 97 07/21/23 20:00 O2 Del Method Room Air 07/21/23 15:18 O2 Flow Rate 1.5 07/17/23 09:31 07/21/23 07/21/23 07/22/23 14:59 22:59 06:59 Intake Total 1537.5 / 1537.5 2142.5 / 3680.0 50 / 3730.0 Output Total 300 / 300 550 / 850 Balance 1237.5 / 1237.5 1592.5 / 2830.0 50 / 2880.0 Weight last 48 hrs Weight 141.634 kg Weight 146.646 kg Physical Exam 2 Const: COMMON NORMALS: patient oriented x3 and alert GENERAL APPEARANCE: c ooperative ORIENTATION/CONSCIOUSNESS: Yes awake HENMT: COMMON NORMALS: oropharynx normal Neck/C-Spine: COMMON NORMALS: no JVD OTHER: R CVC Resp: COMMON NORMALS: normal respiratory effort and clear to auscultation bilaterally AUSCULTATION: clear to auscultation bilaterally Cardio: COMMON NORMALS: no JVD, regular rhythm, S1 normal heart sound present, S2 normal heart sound present and No murmurs present (Cardio) RHYTHM: regular rhythm HEART SOUNDS: S1 normal heart sound present and S2 normal heart sound present GI: COMMON NORMALS: Normal to inspection, nondistended, normoactive bowel sounds present, Soft to palpation and non-tender PALPATION: Yes Soft to palpation Extremity: COMMON NORMALS: no joint enlargement and no pedal edema Neuro: COMMON NORMALS: patient oriented x3 and moves all extremities S ENSORIUM/ORIENTATION: Yes alert Skin: NARRATIVE SKIN EXAM: On second visit to examine the wounds while she was being cleaned and dressings changed. Large stage IV pressure ulcer of the right hip with exposed subcutaneous fat without obvious portions of bone exposed, but the wound is deep. No tunneling or undermining. Minimal necrosis at the bases. Multiple shallow stage II-III ulcerations in the dependent area of the right thigh going down to the right calf and ankle and wrapping around on the inside up towards medial thigh. Right heel with 3 cm shallow ulceration with slough. Very large area of shallow ulceration over the medial lower left leg. Area is weeping. Urinary Catheter Management: [place]: Cath Placed During This Visit: yes Reason for Continuing Indwelling Catheter: Assist Healing of Perineal & Sacral Wounds- Incontinent Patients Urinary Catheter Date of Insertion: 07/14/23 Urinary Catheter Time of Insertion: 14:00 Data 07/21/23 04:23 07/21/23 04:23 Micro: Microbiology 07/16/23 13:50 Gram Stain - Final Hip - Wound Anaerobic Culture - Preliminary Tissue Culture - Final Proteus mirabilis esbl 07/16/23 04:15 Blood Culture - Final Blood NO GROWTH AFTER 5 DAYS 07/16/23 04:13 Blood Culture - Final Blood NO GROWTH AFTER 5 DAYS A&P Assessment and plan (1) Bacterial infection due to Proteus mirabilis: Continue meropenem due to ESBL MDRO Proteus resistant to cefepime in the right hip wound. At risk of seizure with antibiotic. Monitor. Has been continuing with central venous catheter for now. Pending arrangements for LTAC for continued antibiotics and as well as requiring significant wound care with extensive wounds. (2) Fall: Unknown etiology. Unwitnessed. She is very deconditioned, requiring significant assistance even rolling in bed. With morbid obesity certainly at risk of fall. Once little bit stronger consider assessment of orthostatic blood pressures. As she does not appear dehydrated any further with significant weeping will hold further IV fluids. Component of rhabdomyolysis with elevated CPK. Slight improvement in CPK today. Appreciate TSH, CPK B12 and folate levels. PT evaluation. (3) Sepsis: Ruled on admission with tachycardia, altered mental status, target organ dysfunction with renal dysfunction, elevated lactate. Respiratory viral panel negative. MRSA swab positive. Continue with IV vancomycin. Switching meropenem to cefepime as above. Blood cultures growing Proteus mirabilis. Repeat blood cultures so far negative. CT head negative for deep abscess or osteomyelitis. (4) Acute cystitis: Follow-up urine culture Qualifiers: Hematuria presence: without hematuria Qualified Code(s): N30.00 - Acute cystitis without hematuria (5) Wound cellulitis: Reviewed vitals, CBC. Post debridement on 07/16. Wound care as per surgical team. Follow-up or cultures. Continue wet-to-dry dressings. (6) Acute kidney injury: Reviewed renal function, potassium, bicarb, anion gap. Vancomycin level. JOSE A so far resolved. Most likely in setting of dehydration along baseline home dose of lisinopril and hydrochlorothiazide. Medical reconciliation done for nephrotoxic drugs. CT abdomen pelvis rule out obstructive nephropathy. IV fluids as above. Monitor BMP daily. No metabolic acidosis currently. (7) Hypernatremia: Resolved. IV fluids as above. Repeat BMP in evening. (8) Rhabdomyolysis: Hold further IVF. Qualifiers: Rhabdomyolysis type: non-traumatic Qualified Code(s): M62.82 - Rhabdomyolysis (9) Elevated lactic acid level: (10) Transaminitis: Most likely in setting of severe rhabdomyolysis. Resolving (11) Pressure ulcer: (12) Hypothyroidism: Plan Protein energy malnutrition: Albumin 1.8. Start on IV albumin. Protein shakes with meals. Will help with fast healing. Hypertension: Goal blood pressure less than 140/90 mmHg. For now hold off on antihypertensives. If needed will add amlodipine depending on the blood pressures. CODE STATUS: Patient is awake and alert. Wants to remain full code. Patient's family including sister would be the DPOA. Regular diet Holding heparin 5000 every 12 hourly for DVT prophylaxis given extensive bleeding from hip wound. Will restart heparin once bleeding stops. Protonix for PUD prophylaxis Attestations 2 Medical Necessity Statement*: Continue admission for assessment and management of extensive pressure wounds with infection with ESBL MDRO Proteus Coding Level of Care Code Acute Code for [facility] Fwd Diagnoses Bacterial infection due to Proteus mirabilis A49.8 Fall W19.XXXA Sepsis A41.9 Acute cystitis N30.00 Hematuria presence: without hematuria Wound cellulitis L03.90 Acute kidney injury N17.9 Hypernatremia E87.0 Rhabdomyolysis M62.82 Rhabdomyolysis type: non-traumatic Elevated lactic acid level R79.89 Transaminitis R74.01 Pressure ulcer L89.90 Hypothyroidism E03.9
[2023-07-22] VITALS: BP 128/79; PULSE 92; RESP 17; TEMP 37.3; O2SAT 95
[2023-07-22] MEDS: HYDROmorphone 1 mg/mL INJ 1 mL 0.5 MG IVP (00:16)
[2023-07-22 00:53] LABS: Glucose Point of Care 210 mg/dL (70-110)
--- NOTE | 2023-07-22 01:00 | PC.NURSE ---
D5 0.45% NS fluids placed on hold at this time per order. Unable to pause in mar.
[2023-07-22 04:00] VITALS: BP 142/79; PULSE 90; RESP 18; TEMP 36.4; O2SAT 95
[2023-07-22 06:11] LABS: Glucose Point of Care 184 mg/dL (70-110)
[2023-07-22 08:00] VITALS: BP 146/84; PULSE 89; RESP 20; TEMP 36.4; O2SAT 96
[2023-07-22] MEDS: amlodipine 10 mg Tablet PO (08:09)
[2023-07-22] MEDS: levothyroxine 88 mcg Tablet PO (08:09)
[2023-07-22] MEDS: aspirin 81 mg EC Tablet PO (08:10)
[2023-07-22] MEDS: meropenem 1,000 MG in sodium chloride 0.9% (plus) 50 ML 100 MG IV ×3 (08:10→23:11)
[2023-07-22] MEDS: quetiapine 25 mg Tablet PO ×2 (08:10→17:41)
[2023-07-22] MEDS: vancomycin 1,500 MG/300 ML PIGGYBACK 200 MG IV (09:58)
[2023-07-22] MEDS: fluticasone nasal spray 16gm Btl 1 SPRAY NASAL ×2 (10:04→17:42)
[2023-07-22] MEDS: collagenase oint 30 gm 1 APPLIC TOPICAL (10:05)
[2023-07-22 12:00] VITALS: BP 125/77; PULSE 91; RESP 20; TEMP 36.4; O2SAT 96
[2023-07-22 12:18] LABS: Glucose Point of Care 167 mg/dL (70-110)
[2023-07-22 16:00] VITALS: BP 145/85; PULSE 93; RESP 20; TEMP 36.7; O2SAT 96
[2023-07-22] MEDS: acetaminophen 325 mg Tablet 650 MG PO (16:33)
[2023-07-22] MEDS: pantoprazole 40 mg SDV IVP (17:41)
[2023-07-22 17:43] LABS: Glucose Point of Care 183 mg/dL (70-110)
[2023-07-22 20:15] VITALS: BP 140/79; PULSE 90; RESP 19; TEMP 37; O2SAT 96
--- NOTE | 2023-07-22 22:26 | P.PN_ITS ---
Subjective 2 Medications: Medication Review Details: Denies any new complaints. She states she is feeling slightly stronger. Vitals/I&O/Wt Last Vital Signs Temp 98.6 F 07/22/23 20:15 Pulse 90 07/22/23 20:15 Resp 19 H 07/22/23 20:15 BP 140/79 07/22/23 20:15 Pulse Ox 96 07/22/23 20:15 O2 Del Method Room Air 07/22/23 16:00 O2 Flow Rate 1.5 07/17/23 09:31 07/22/23 07/22/23 07/22/23 06:59 14:59 22:59 Intake Total 50 / 3730.0 1010 / 1010 950 / 1960 Output Total 450 / 1300 300 / 300 Balance -400 / 2430.0 1010 / 1010 650 / 1660 Weight last 48 hrs Weight 144.016 kg Weight 141.634 kg Physical Exam 2 Const: COMMON NORMALS: patient oriented x3 and alert GENERAL APPEARANCE: c ooperative ORIENTATION/CONSCIOUSNESS: Yes awake HENMT: COMMON NORMALS: oropharynx normal Neck/C-Spine: COMMON NORMALS: no JVD OTHER: R CVC Resp: COMMON NORMALS: normal respiratory effort and clear to auscultation bilaterally AUSCULTATION: clear to auscultation bilaterally Cardio: COMMON NORMALS: no JVD, regular rhythm, S1 normal heart sound present, S2 normal heart sound present and No murmurs present (Cardio) RHYTHM: regular rhythm HEART SOUNDS: S1 normal heart sound present and S2 normal heart sound present GI: COMMON NORMALS: Normal to inspection, nondistended, normoactive bowel sounds present, Soft to palpation and non-tender PALPATION: Yes Soft to palpation Extremity: COMMON NORMALS: no joint enlargement and no pedal edema Neuro: COMMON NORMALS: patient oriented x3 and moves all extremities S ENSORIUM/ORIENTATION: Yes alert Skin: NARRATIVE SKIN EXAM: Dressing over pressure ulcers. Urinary Catheter Management: [place]: Cath Placed During This Visit: yes Reason for Continuing Indwelling Catheter: Assist Healing of Perineal & Sacral Wounds- Incontinent Patients Urinary Catheter Date of Insertion: 07/14/23 Urinary Catheter Time of Insertion: 14:00 Data 07/21/23 04:23 07/21/23 04:23 Micro: Microbiology 07/16/23 13:50 Gram Stain - Final Hip - Wound Anaerobic Culture - Preliminary Tissue Culture - Final Proteus mirabilis esbl A&P Assessment and plan (1) Bacterial infection due to Proteus mirabilis: Extensive wounds with wound infection. So far afebrile. Continues on meropenem. Vancomycin. Reviewed vancomycin trough. She reports symptomatically she is starting to improve, feeling stronger, but still quite deconditioned. Discussed with briefcase sewer. Stop IVF. Reviewed blood glucose Continue meropenem due to ESBL MDRO Proteus resistant to cefepime in the right hip wound. At risk of seizure with antibiotic. Monitor. Has been continuing with central venous catheter for now. Pending arrangements for LTAC for continued antibiotics and as well as requiring significant wound care with extensive wounds. (2) Fall: Unknown etiology. Unwitnessed. She is very deconditioned, requiring significant assistance even rolling in bed. With morbid obesity certainly at risk of fall. Once little bit stronger consider assessment of orthostatic blood pressures. As she does not appear dehydrated any further with significant weeping will hold further IV fluids. Component of rhabdomyolysis with elevated CPK. Slight improvement in CPK today. Appreciate TSH, CPK B12 and folate levels. PT evaluation. (3) Sepsis: Ruled on admission with tachycardia, altered mental status, target organ dysfunction with renal dysfunction, elevated lactate. Respiratory viral panel negative. MRSA swab positive. Continue with IV vancomycin. Switching meropenem to cefepime as above. Blood cultures growing Proteus mirabilis. Repeat blood cultures so far negative. CT head negative for deep abscess or osteomyelitis. (4) Acute cystitis: Reviewed urine culture, less than 5000 gram-negative rods on day 1, final. Qualifiers: Hematuria presence: without hematuria Qualified Code(s): N30.00 - Acute cystitis without hematuria (5) Wound cellulitis: Reviewed vitals, CBC. Post debridement on 07/16. Wound care as per surgical team. Follow-up or cultures. Continue wet-to-dry dressings. (6) Acute kidney injury: Reviewed renal function, potassium, bicarb, anion gap. Vancomycin level. JOSE A so far resolved. Most likely in setting of dehydration along baseline home dose of lisinopril and hydrochlorothiazide. Medical reconciliation done for nephrotoxic drugs. CT abdomen pelvis rule out obstructive nephropathy. IV fluids as above. Monitor BMP daily. No metabolic acidosis currently. (7) Hypernatremia: Resolved. IV fluids as above. Repeat BMP in evening. (8) Rhabdomyolysis: Hold further IVF. Qualifiers: Rhabdomyolysis type: non-traumatic Qualified Code(s): M62.82 - Rhabdomyolysis (9) Elevated lactic acid level: (10) Transaminitis: Most likely in setting of severe rhabdomyolysis. Resolving (11) Pressure ulcer: (12) Hypothyroidism: Plan Protein energy malnutrition: Albumin 1.8. Off IV albumin. Protein shakes with meals. Will help with fast healing. Hypertension: Goal blood pressure less than 140/90 mmHg. For now hold off on antihypertensives. If needed will add amlodipine depending on the blood pressures. CODE STATUS: Patient is awake and alert. Wants to remain full code. Patient's family including sister would be the DPOA. Regular diet Holding heparin 5000 every 12 hourly for DVT prophylaxis given extensive bleeding from hip wound. Will restart heparin once bleeding stops. Protonix for PUD prophylaxis Attestations 2 Medical Necessity Statement*: Continue admission for assessment and management of extensive pressure wounds with infection with ESBL MDRO Proteus and High MDM includes described risk of complication, morbidity or mortality of management as documented Diagnoses Bacterial infection due to Proteus mirabilis A49.8 Fall W19.XXXA Sepsis A41.9 Acute cystitis N30.00 Hematuria presence: without hematuria Wound cellulitis L03.90 Acute kidney injury N17.9 Hypernatremia E87.0 Rhabdomyolysis M62.82 Rhabdomyolysis type: non-traumatic Elevated lactic acid level R79.89 Transaminitis R74.01 Pressure ulcer L89.90 Hypothyroidism E03.9
[2023-07-23] VITALS: BP 130/80; PULSE 86; RESP 18; TEMP 37; O2SAT 95
[2023-07-23] MEDS: HYDROmorphone 1 mg/mL INJ 1 mL 0.5 MG IVP (00:53)
[2023-07-23] MEDS: vancomycin 1,500 MG/300 ML PIGGYBACK 200 MG IV ×2 (02:02→21:15)
[2023-07-23 04:00] VITALS: BP 129/79; PULSE 87; RESP 17; TEMP 36.6; O2SAT 93
[2023-07-23 06:02] LABS: Glucose Point of Care 160 mg/dL (70-110)
[2023-07-23 07:13] VITALS: BP 125/68; PULSE 87; RESP 16; TEMP 36.7; O2SAT 93
[2023-07-23] MEDS: meropenem 1,000 MG in sodium chloride 0.9% (plus) 50 ML 100 MG IV ×3 (08:39→23:32)
[2023-07-23] MEDS: aspirin 81 mg EC Tablet PO (08:39)
[2023-07-23] MEDS: levothyroxine 88 mcg Tablet PO (08:39)
[2023-07-23] MEDS: amlodipine 10 mg Tablet PO (08:39)
[2023-07-23] MEDS: fluticasone nasal spray 16gm Btl 1 SPRAY NASAL ×2 (08:40→17:14)
[2023-07-23] MEDS: quetiapine 25 mg Tablet PO ×2 (08:40→17:14)
[2023-07-23 11:17] LABS: Glucose Point of Care 261 mg/dL (70-110)
[2023-07-23 13:03] VITALS: BP 124/73; PULSE 87; RESP 18; TEMP 36.6; O2SAT 93
[2023-07-23 16:08] VITALS: BP 131/74; PULSE 94; RESP 18; TEMP 36.8; O2SAT 94
[2023-07-23 16:53] LABS: Glucose Point of Care 214 mg/dL (70-110)
[2023-07-23] MEDS: pantoprazole 40 mg SDV IVP (17:13)
[2023-07-23] MEDS: acetaminophen 325 mg Tablet 650 MG PO (17:13)
[2023-07-23 19:47] VITALS: BP 130/74; PULSE 84; RESP 18; TEMP 36.8; O2SAT 98
[2023-07-23 21:07] LABS: Vancomycin Trough 10.7 ug/mL (10-15)
--- NOTE | 2023-07-23 22:37 | PM.PN ---
Subjective Subjective: She states she is doing all right all things considering and denies new symptoms, but is having trouble maneuvering the bedside table. Vitals/I&O/Wt Last Vital Signs Temp 98.3 F 07/23/23 19:47 Pulse 84 07/23/23 19:47 Resp 18 07/23/23 19:47 BP 130/74 07/23/23 19:47 Pulse Ox 98 07/23/23 19:47 O2 Del Method Room Air 07/23/23 16:08 O2 Flow Rate 1.5 07/17/23 09:31 07/23/23 07/23/23 07/23/23 06:59 14:59 22:59 Intake Total 350 / 2910 1010 / 1010 1410 / 2420 Output Total 650 / 950 450 / 450 450 / 900 Balance -300 / 1960 560 / 560 960 / 1520 Weight last 48 hrs Weight 147.962 kg Weight 144.016 kg Physical Exam Const: COMMON NORMALS: patient oriented x3 and alert GENERAL APPEARANCE: cooperative ORIENTATION/CONSCIOUSNESS: Yes awake HENMT: COMMON NORMALS: oropharynx normal Neck/C-Spine: COMMON NORMALS: no JVD OTHER: R CVC Resp: COMMON NORMALS: normal respiratory effort and clear to auscultation bilaterally AUSCULTATION: clear to auscultation bilaterally Cardio: COMMON NORMALS: no JVD, regular rhythm, S1 normal heart sound present, S2 normal heart sound present and No murmurs present (Cardio) RHYTHM: regular rhythm HEART SOUNDS: S1 normal heart sound present and S2 normal heart sound present GI: COMMON NORMALS: Normal to inspection, nondistended, normoactive bowel sounds present, Soft to palpation and non-tender PALPATION: Yes Soft to palpation Extremity: COMMON NORMALS: no joint enlargement and no pedal edema Neuro: COMMON NORMALS: patient oriented x3 and moves all extremities SENSORIUM/ORIENTATION: Yes alert Skin: NARRATIVE SKIN EXAM: Dressing over pressure ulcers. Urinary Catheter Management: [place]: Cath Placed During This Visit: yes Reason for Continuing Indwelling Catheter: Assist Healing of Perineal & Sacral Wounds- Incontinent Patients Urinary Catheter Date of Insertion: 07/14/23 Urinary Catheter Time of Insertion: 14:00 Data 07/21/23 04:23 07/21/23 04:23 Micro: Microbiology 07/16/23 13:50 Gram Stain - Final Hip - Wound Anaerobic Culture - Preliminary Tissue Culture - Final Proteus mirabilis esbl A&P Assessment and plan (1) Bacterial infection due to Proteus mirabilis: Wounds are gradually improving in appearance. Weeping with some improvement with discontinued IV fluids. Monitor for Hypovolemia. Vitals reviewed. Accu-Cheks reviewed. Discussed with family independence case manager. Pending authorization for LTAC. Hyperglycemic, add insulin sliding scale. Extensive wounds with wound infection. So far afebrile. Continues on meropenem. Vancomycin. Reviewed vancomycin trough. She reports symptomatically she is starting to improve, feeling stronger, but still quite deconditioned. Discussed with family independence case manager. Stop IVF. Reviewed blood glucose Continue meropenem due to ESBL MDRO Proteus resistant to cefepime in the right hip wound. At risk of seizure with antibiotic. Monitor. Has been continuing with central venous catheter for now. Pending arrangements for LTAC for continued antibiotics and as well as requiring significant wound care with extensive wounds. (2) Fall: Unknown etiology. Unwitnessed. She is very deconditioned, requiring significant assistance even rolling in bed. With morbid obesity certainly at risk of fall. Once little bit stronger consider assessment of orthostatic blood pressures. As she does not appear dehydrated any further with significant weeping will hold further IV fluids. Component of rhabdomyolysis with elevated CPK. Slight improvement in CPK today. Appreciate TSH, CPK B12 and folate levels. PT evaluation. (3) Sepsis: Ruled on admission with tachycardia, altered mental status, target organ dysfunction with renal dysfunction, elevated lactate. Respiratory viral panel negative. MRSA swab positive. Continue with IV vancomycin. Switching meropenem to cefepime as above. Blood cultures growing Proteus mirabilis. Repeat blood cultures so far negative. CT head negative for deep abscess or osteomyelitis. (4) Acute cystitis: Reviewed urine culture, less than 5000 gram-negative rods on day 1, final. Qualifiers: Hematuria presence: without hematuria Qualified Code(s): N30.00 - Acute cystitis without hematuria (5) Wound cellulitis: Reviewed vitals, CBC. Post debridement on 07/16. Wound care as per surgical team. Follow-up or cultures. Continue wet-to-dry dressings. (6) Acute kidney injury: Reviewed renal function, potassium, bicarb, anion gap. Vancomycin level. JOSE A so far resolved. Most likely in setting of dehydration along baseline home dose of lisinopril and hydrochlorothiazide. Medical reconciliation done for nephrotoxic drugs. CT abdomen pelvis rule out obstructive nephropathy. IV fluids as above. Monitor BMP daily. No metabolic acidosis currently. (7) Hypernatremia: Resolved. IV fluids as above. Repeat BMP in evening. (8) Rhabdomyolysis: Hold further IVF. Qualifiers: Rhabdomyolysis type: non-traumatic Qualified Code(s): M62.82 - Rhabdomyolysis (9) Elevated lactic acid level: (10) Transaminitis: Most likely in setting of severe rhabdomyolysis. Resolving (11) Pressure ulcer: (12) Hypothyroidism: Plan Protein energy malnutrition: Albumin 1.8. Off IV albumin. Protein shakes with meals. Will help with fast healing. Hypertension: Goal blood pressure less than 140/90 mmHg. For now hold off on antihypertensives. If needed will add amlodipine depending on the blood pressures. CODE STATUS: Patient is awake and alert. Wants to remain full code. Patient's family including sister would be the DPOA. Regular diet Holding heparin 5000 every 12 hourly for DVT prophylaxis given extensive bleeding from hip wound. Will restart heparin once bleeding stops. Protonix for PUD prophylaxis Attestations Medical Necessity Statement*: Continue admission for assessment and management of extensive pressure wounds with infection with ESBL MDRO Proteus Diagnoses Bacterial infection due to Proteus mirabilis A49.8 Fall W19.XXXA Sepsis A41.9 Acute cystitis N30.00 Hematuria presence: without hematuria Wound cellulitis L03.90 Acute kidney injury N17.9 Hypernatremia E87.0 Rhabdomyolysis M62.82 Rhabdomyolysis type: non-traumatic Elevated lactic acid level R79.89 Transaminitis R74.01 Pressure ulcer L89.90 Hypothyroidism E03.9
[2023-07-23] MEDS: HYDROcodone-acetaminophen 7.5-325 mg Tablet 1 TAB PO (23:33)
[2023-07-23 23:58] LABS: Glucose Point of Care 224 mg/dL (70-110)
[2023-07-24] VITALS: BP 130/77; PULSE 87; RESP 16; TEMP 36.8; O2SAT 93
[2023-07-24 04:39] VITALS: BP 137/82; PULSE 79; RESP 17; TEMP 37; O2SAT 95
[2023-07-24 06:09] LABS: Glucose Point of Care 162 mg/dL (70-110)
[2023-07-24 07:31] VITALS: BP 176/81; PULSE 87; RESP 20; TEMP 36.2; O2SAT 98
[2023-07-24] MEDS: amlodipine 10 mg Tablet PO (08:47)
[2023-07-24] MEDS: levothyroxine 88 mcg Tablet PO (08:47)
[2023-07-24] MEDS: quetiapine 25 mg Tablet PO ×2 (08:47→17:15)
[2023-07-24] MEDS: collagenase oint 30 gm 1 APPLIC TOPICAL (08:47)
[2023-07-24] MEDS: fluticasone nasal spray 16gm Btl 1 SPRAY NASAL (08:47)
[2023-07-24] MEDS: aspirin 81 mg EC Tablet PO (08:47)
[2023-07-24] MEDS: meropenem 1,000 MG in sodium chloride 0.9% (plus) 50 ML 100 MG IV ×2 (08:48→15:27)
[2023-07-24] MEDS: insulin lispro 100 unit/1 mL SUBCUT ×4 (08:48→21:30)
[2023-07-24 11:10] LABS: Glucose Point of Care 164 mg/dL (70-110)
[2023-07-24 11:22] VITALS: BP 137/77; PULSE 87; RESP 19; TEMP 36.4; O2SAT 96
[2023-07-24] MEDS: vancomycin 1,500 MG/300 ML PIGGYBACK 200 MG IV (15:26)
[2023-07-24 16:00] VITALS: BP 135/81; PULSE 92; RESP 19; TEMP 36.6; O2SAT 98
[2023-07-24 16:36] LABS: Glucose Point of Care 194 mg/dL (70-110)
[2023-07-24] MEDS: pantoprazole 40 mg SDV IVP (19:19)
[2023-07-24 19:53] VITALS: BP 119/70; PULSE 98; RESP 18; TEMP 36.6; O2SAT 96
[2023-07-24 20:46] LABS: Glucose Point of Care 265 mg/dL (70-110)
--- NOTE | 2023-07-24 21:28 | P.PN_ITS ---
Subjective 2 Subjective: Symptoms and the wounds on her legs are improving, she states has been experiencing less pain with repositioning and dressing changes. But still requiring pain medication. Vitals/I&O/Wt Last Vital Signs Temp 97.9 F 07/24/23 19:53 Pulse 98 07/24/23 19:53 Resp 18 07/24/23 19:53 BP 119/70 07/24/23 19:53 Pulse Ox 96 07/24/23 19:53 O2 Del Method Room Air 07/24/23 19:53 O2 Flow Rate 1.5 07/17/23 09:31 07/24/23 07/24/23 07/24/23 06:59 14:59 22:59 Intake Total 650 / 3070 770 / 770 710 / 1480 Output Total 700 / 1600 Balance -50 / 1470 770 / 770 710 / 1480 Weight last 48 hrs Weight 147.962 kg Weight 147.962 kg Physical Exam 2 Const: COMMON NORMALS: patient oriented x3 and alert GENERAL APPEARANCE: c ooperative ORIENTATION/CONSCIOUSNESS: Yes awake HENMT: COMMON NORMALS: oropharynx normal Neck/C-Spine: COMMON NORMALS: no JVD OTHER: R CVC Resp: COMMON NORMALS: normal respiratory effort and clear to auscultation bilaterally AUSCULTATION: clear to auscultation bilaterally Cardio: COMMON NORMALS: no JVD, regular rhythm, S1 normal heart sound present, S2 normal heart sound present and No murmurs present (Cardio) RHYTHM: regular rhythm HEART SOUNDS: S1 normal heart sound present and S2 normal heart sound present GI: COMMON NORMALS: Normal to inspection, nondistended, normoactive bowel sounds present, Soft to palpation and non-tender PALPATION: Yes Soft to palpation Extremity: COMMON NORMALS: no joint enlargement and no pedal edema Neuro: COMMON NORMALS: patient oriented x3 and moves all extremities S ENSORIUM/ORIENTATION: Yes alert Skin: NARRATIVE SKIN EXAM: Dressing over pressure ulcers. Urinary Catheter Management: [place]: Cath Placed During This Visit: yes Reason for Continuing Indwelling Catheter: Other Urinary Catheter Date of Insertion: 07/14/23 Urinary Catheter Time of Insertion: 14:00 Data 07/21/23 04:23 07/21/23 04:23 Micro: Microbiology 07/16/23 13:50 Gram Stain - Final Hip - Wound Anaerobic Culture - Final Tissue Culture - Final Proteus mirabilis esbl A&P Assessment and plan (1) Bacterial infection due to Proteus mirabilis: Symptoms gradually improving. Remains afebrile. Awaiting authorization for LTAC for continued IV antibiotics, wound care, rehabilitation. Discussed with pillowcase folder. Vitals reviewed. Accu-Cheks reviewed. Discussed with pillowcase folder. Pending authorization for LTAC. Hyperglycemic, add insulin sliding scale. Extensive wounds with wound infection. So far afebrile. Continues on meropenem. Vancomycin. Reviewed vancomycin trough. She reports symptomatically she is starting to improve, feeling stronger, but still quite deconditioned. Discussed with pillowcase folder. Stop IVF. Reviewed blood glucose Continue meropenem due to ESBL MDRO Proteus resistant to cefepime in the right hip wound. At risk of seizure with antibiotic. Monitor. Has been continuing with central venous catheter for now. Pending arrangements for LTAC for continued antibiotics and as well as requiring significant wound care with extensive wounds. (2) Fall: Unknown etiology. Unwitnessed. She is very deconditioned, requiring significant assistance even rolling in bed. With morbid obesity certainly at risk of fall. Once little bit stronger consider assessment of orthostatic blood pressures. As she does not appear dehydrated any further with significant weeping will hold further IV fluids. Component of rhabdomyolysis with elevated CPK. Slight improvement in CPK today. Appreciate TSH, CPK B12 and folate levels. PT evaluation. (3) Sepsis: Ruled on admission with tachycardia, altered mental status, target organ dysfunction with renal dysfunction, elevated lactate. Respiratory viral panel negative. MRSA swab positive. Continue with IV vancomycin. Switching meropenem to cefepime as above. Blood cultures growing Proteus mirabilis. Repeat blood cultures so far negative. CT head negative for deep abscess or osteomyelitis. (4) Acute cystitis: Reviewed urine culture, less than 5000 gram-negative rods on day 1, final. Qualifiers: Hematuria presence: without hematuria Qualified Code(s): N30.00 - Acute cystitis without hematuria (5) Wound cellulitis: Reviewed vitals, CBC. Post debridement on 07/16. Wound care as per surgical team. Follow-up or cultures. Continue wet-to-dry dressings. (6) Acute kidney injury: Reviewed renal function, potassium, bicarb, anion gap. Vancomycin level. JOSE A so far resolved. Most likely in setting of dehydration along baseline home dose of lisinopril and hydrochlorothiazide. Medical reconciliation done for nephrotoxic drugs. CT abdomen pelvis rule out obstructive nephropathy. IV fluids as above. Monitor BMP daily. No metabolic acidosis currently. (7) Hypernatremia: Resolved. IV fluids as above. Repeat BMP in evening. (8) Rhabdomyolysis: Improved Qualifiers: Rhabdomyolysis type: non-traumatic Qualified Code(s): M62.82 - Rhabdomyolysis (9) Elevated lactic acid level: (10) Transaminitis: Most likely in setting of severe rhabdomyolysis. Resolving (11) Pressure ulcer: (12) Hypothyroidism: Plan Prediabetes: Blood glucose elevated tonight up to 265, but earlier in the day as low as 162. Added sliding scale insulin. Continue to monitor, does not appear to have diabetes but prediabetes with A1c of 6 Protein energy malnutrition: Albumin 1.8. Off IV albumin. Protein shakes with meals. Hypertension: Goal blood pressure less than 140/90 mmHg. For now hold off on antihypertensives. If needed will add amlodipine depending on the blood pressures. CODE STATUS: Patient is awake and alert. Wants to remain full code. Patient's family including sister would be the DPOA. Regular diet Holding heparin 5000 every 12 hourly for DVT prophylaxis given extensive bleeding from hip wound. Will restart heparin once bleeding stops. Protonix for PUD prophylaxis Attestations 2 Medical Necessity Statement*: Continue admission for assessment and management of extensive pressure wounds with infection with ESBL MDRO Proteus, pending authorization for LTAC Diagnoses Bacterial infection due to Proteus mirabilis A49.8 Fall W19.XXXA Sepsis A41.9 Acute cystitis N30.00 Hematuria presence: without hematuria Wound cellulitis L03.90 Acute kidney injury N17.9 Hypernatremia E87.0 Rhabdomyolysis M62.82 Rhabdomyolysis type: non-traumatic Elevated lactic acid level R79.89 Transaminitis R74.01 Pressure ulcer L89.90 Hypothyroidism E03.9
[2023-07-25] VITALS: BP 142/75; PULSE 95; RESP 19; TEMP 36.4; O2SAT 96
[2023-07-25] MEDS: meropenem 1,000 MG in sodium chloride 0.9% (plus) 50 ML 100 MG IV ×4 (00:11→23:35)
[2023-07-25 00:28] LABS: Glucose Point of Care 192 mg/dL (70-110)
[2023-07-25 04:00] VITALS: BP 149/84; PULSE 94; RESP 18; TEMP 36.7; O2SAT 95
[2023-07-25 05:53] LABS: Glucose Point of Care 189 mg/dL (70-110)
[2023-07-25 07:54] VITALS: BP 152/83; PULSE 91; RESP 18; TEMP 37.1; O2SAT 93
[2023-07-25] MEDS: insulin lispro 100 unit/1 mL SUBCUT ×3 (09:09→23:34)
[2023-07-25] MEDS: amlodipine 10 mg Tablet PO (09:10)
[2023-07-25] MEDS: aspirin 81 mg EC Tablet PO (09:10)
[2023-07-25] MEDS: levothyroxine 88 mcg Tablet PO (09:10)
[2023-07-25] MEDS: quetiapine 25 mg Tablet PO ×2 (09:10→17:37)
[2023-07-25] MEDS: collagenase oint 30 gm 1 APPLIC TOPICAL (09:11)
[2023-07-25] MEDS: fluticasone nasal spray 16gm Btl 1 SPRAY NASAL ×2 (09:11→17:35)
[2023-07-25] MEDS: vancomycin 1,500 MG/300 ML PIGGYBACK 200 MG IV (09:20)
[2023-07-25 11:34] LABS: Glucose Point of Care 139 mg/dL (70-110)
[2023-07-25 13:13] VITALS: BP 153/92; PULSE 88; RESP 18; TEMP 36.3; O2SAT 96
[2023-07-25] MEDS: acetaminophen 325 mg Tablet 650 MG PO ×2 (14:39→23:38)
[2023-07-25 17:07] LABS: Glucose Point of Care 184 mg/dL (70-110)
[2023-07-25] MEDS: pantoprazole 40 mg SDV IVP (17:37)
[2023-07-25 18:03] VITALS: BP 143/83; PULSE 87; RESP 18; TEMP 36.6; O2SAT 98
[2023-07-25 20:00] VITALS: BP 151/83; PULSE 92; RESP 17; TEMP 36.6; O2SAT 98
[2023-07-25 21:05] LABS: Glucose Point of Care 207 mg/dL (70-110)
--- NOTE | 2023-07-25 21:45 | P.PN_ITS ---
Subjective 2 Subjective: Not feeling the best today, gloomy weather possibly contributing. She has been trying to eat well to help with healing. Vitals/I&O/Wt Last Vital Signs Temp 98 F 07/25/23 20:00 Pulse 92 07/25/23 20:00 Resp 17 07/25/23 20:00 BP 151/83 07/25/23 20:00 Pulse Ox 98 07/25/23 20:00 O2 Del Method Room Air 07/25/23 18:03 O2 Flow Rate 1.5 07/17/23 09:31 07/25/23 07/25/23 07/25/23 06:59 14:59 22:59 Intake Total 50 / 1530 1310 / 1310 530 / 1840 Output Total 500 / 850 1000 / 1000 Balance -450 / 680 1310 / 1310 -470 / 840 Weight last 48 hrs Weight 147.962 kg Physical Exam 2 Const: COMMON NORMALS: patient oriented x3 and alert GENERAL APPEARANCE: c ooperative ORIENTATION/CONSCIOUSNESS: Yes awake HENMT: COMMON NORMALS: oropharynx normal Neck/C-Spine: COMMON NORMALS: no JVD OTHER: R CVC Resp: COMMON NORMALS: normal respiratory effort and clear to auscultation bilaterally AUSCULTATION: clear to auscultation bilaterally Cardio: COMMON NORMALS: no JVD, regular rhythm, S1 normal heart sound present, S2 normal heart sound present and No murmurs present (Cardio) RHYTHM: regular rhythm HEART SOUNDS: S1 normal heart sound present and S2 normal heart sound present GI: COMMON NORMALS: Normal to inspection, nondistended, normoactive bowel sounds present, Soft to palpation and non-tender PALPATION: Yes Soft to palpation Extremity: COMMON NORMALS: no joint enlargement and no pedal edema Neuro: COMMON NORMALS: patient oriented x3 and moves all extremities S ENSORIUM/ORIENTATION: Yes alert Skin: NARRATIVE SKIN EXAM: Dressing over pressure ulcers. Decreasing erythema on lower legs. Urinary Catheter Management: [place]: Cath Placed During This Visit: yes Reason for Continuing Indwelling Catheter: Acute Urinary Retention or Obstruction Urinary Catheter Date of Insertion: 07/14/23 Urinary Catheter Time of Insertion: 14:00 Data 07/21/23 04:23 07/21/23 04:23 A&P Assessment and plan (1) Bacterial infection due to Proteus mirabilis: Symptoms gradually improving. Remains afebrile. Decreasing erythema on lower legs. Her, noted necrotic area at the center of the large right hip ulcer. Currently with wet-to-dry dressings. Dressings are allowed to dry out. She is being repositioned, reportedly is helping more with repositioning. Continue wet-to-dry for now, or, if not drying out completely, consider switching to Santyl. Reassess to see if may benefit from sharp debridement. Continue IV antibiotics. Exchange CVC to PICC line. As she is having some malaise today we will repeat CBC, BMP. Discussed with family caseworker, still has not yet received authorization for LTAC. Pending. Reviewed Accu-Cheks, glucose intermittently elevated, discussed with her. But coming down as low as 139. Maintain consistent carbohydrate diet. Continue sliding scale insulin. ESBL MDRO Proteus resistant to cefepime in the right hip wound. At risk of seizure with antibiotic. Monitor. Has been continuing with central venous catheter for now. Pending arrangements for LTAC for continued antibiotics and as well as requiring significant wound care with extensive wounds. (2) Prediabetes: Blood glucose elevated on review up to 200s, but earlier in the day as low as 139. Continue sliding scale insulin without increasing at this time. Consistent carbohydrate diet. Continue to monitor, does not appear to have diabetes but prediabetes with A1c of 6 (3) Fall: Unknown etiology. Unwitnessed. She is very deconditioned, requiring significant assistance even rolling in bed. With morbid obesity certainly at risk of fall. Once little bit stronger consider assessment of orthostatic blood pressures. As she does not appear dehydrated any further with significant weeping will hold further IV fluids. Component of rhabdomyolysis with elevated CPK. Slight improvement in CPK today. Appreciate TSH, CPK B12 and folate levels. PT evaluation. (4) Sepsis: Ruled on admission with tachycardia, altered mental status, target organ dysfunction with renal dysfunction, elevated lactate. Respiratory viral panel negative. MRSA swab positive. Continue with IV vancomycin. Switching meropenem to cefepime as above. Blood cultures growing Proteus mirabilis. Repeat blood cultures so far negative. CT head negative for deep abscess or osteomyelitis. (5) Acute cystitis: Reviewed urine culture, less than 5000 gram-negative rods on day 1, final. Qualifiers: Hematuria presence: without hematuria Qualified Code(s): N30.00 - Acute cystitis without hematuria (6) Wound cellulitis: As above. Post debridement on 07/16. Wound care as per surgical team. Follow-up or cultures. Continue wet-to-dry dressings. (7) Acute kidney injury: JOSE A so far resolved. Most likely in setting of dehydration along baseline home dose of lisinopril and hydrochlorothiazide. Medical reconciliation done for nephrotoxic drugs. CT abdomen pelvis rule out obstructive nephropathy. IV fluids as above. Monitor BMP daily. No metabolic acidosis currently. (8) Hypernatremia: Resolved. IV fluids as above. Repeat BMP in evening. (9) Rhabdomyolysis: Improved Qualifiers: Rhabdomyolysis type: non-traumatic Qualified Code(s): M62.82 - Rhabdomyolysis (10) Elevated lactic acid level: (11) Transaminitis: Most likely in setting of severe rhabdomyolysis. Resolving (12) Pressure ulcer: (13) Hypothyroidism: Plan Protein energy malnutrition: Albumin 1.8. Off IV albumin. Protein shakes with meals. Hypertension: Goal blood pressure less than 140/90 mmHg. For now hold off on antihypertensives. If needed will add amlodipine depending on the blood pressures. CODE STATUS: Patient is awake and alert. Wants to remain full code. Patient's family including sister would be the DPOA. Regular diet Holding heparin 5000 every 12 hourly for DVT prophylaxis given extensive bleeding from hip wound. Will restart heparin once bleeding stops. Protonix for PUD prophylaxis Attestations 2 Medical Necessity Statement*: Continue admission for assessment and management of extensive pressure wounds with infection with ESBL MDRO Proteus, pending authorization for LTAC Diagnoses Bacterial infection due to Proteus mirabilis A49.8 Prediabetes R73.03 Fall W19.XXXA Sepsis A41.9 Acute cystitis N30.00 Hematuria presence: without hematuria Wound cellulitis L03.90 Acute kidney injury N17.9 Hypernatremia E87.0 Rhabdomyolysis M62.82 Rhabdomyolysis type: non-traumatic Elevated lactic acid level R79.89 Transaminitis R74.01 Pressure ulcer L89.90 Hypothyroidism E03.9
[2023-07-26] VITALS: BP 133/83; PULSE 87; RESP 18; TEMP 36.4; O2SAT 95
[2023-07-26 00:10] LABS: Glucose Point of Care 199 mg/dL (70-110)
[2023-07-26] MEDS: vancomycin 1,500 MG/300 ML PIGGYBACK 200 MG IV ×2 (03:18→22:31)
[2023-07-26 04:00] VITALS: BP 154/85; PULSE 91; RESP 17; TEMP 36.9; O2SAT 96
[2023-07-26 06:16] LABS: Basophils % 0.3 %; Eosinophils # 0.2 10^3/uL (0.0-0.8); Eosinophils % 3.9 %; Hematocrit 29.3 % (36-47); Lymphocytes # 1.4 10^3/uL (0.8-4.8); Lymphocytes % 22.2 %; Mean Corpuscular HGB Conc 31.1 g/dL (30-55); Mean Corpuscular Hemoglobin 29.7 pg (27-33); Mean Corpuscular Volume 95.8 fl (85-98); Mean Platelet Volume 10.9 fL (7.4-10.4); Monocytes # 0.5 10^3/uL (0.2-0.9); Monocytes % 7.5 %; Neutrophils # 4.04 10^3/uL (1.8-7.7); Neutrophils % 65.6 %; Nucleated Red Blood Cells % 0 %; Platelet Count 238 10^3/cmm (157-399); Red Blood Count 3.06 10^6/uL (3.85-5.65); Red Cell Distribution Width 18.5 % (12.1-15.1); White Blood Count 6.16 10^3/uL (3.29-11.43)
[2023-07-26 06:38] LABS: Glucose Point of Care 134 mg/dL (70-110)
[2023-07-26 06:41] LABS: Blood Urea Nitrogen 17 mg/dL (8-23); Carbon Dioxide 29 mmol/L (22-29); Chloride 105 mmol/L (98-107); Glomerular Filtration Rate 161.2 mL/min (90-130); Glucose 128 mg/dL (65-115); Osmolality Calculated 289 mOsm/kg (285-295); Sodium 138 mmol/L (136-145)
[2023-07-26 06:45] LABS: Anion Gap 8.5 (5-19)
[2023-07-26 06:46] LABS: Potassium 4.5 mmol/L (3.5-5.1)
[2023-07-26 07:16] VITALS: BP 143/86; PULSE 87; RESP 18; TEMP 36.8; O2SAT 95
[2023-07-26] MEDS: amlodipine 10 mg Tablet PO (10:28)
[2023-07-26] MEDS: levothyroxine 88 mcg Tablet PO (10:28)
[2023-07-26] MEDS: fluticasone nasal spray 16gm Btl 1 SPRAY NASAL ×2 (10:29→17:50)
[2023-07-26] MEDS: meropenem 1,000 MG in sodium chloride 0.9% (plus) 50 ML 100 MG IV ×2 (10:29→17:49)
[2023-07-26] MEDS: quetiapine 25 mg Tablet PO ×2 (10:29→17:49)
[2023-07-26] MEDS: aspirin 81 mg EC Tablet PO (10:29)
[2023-07-26] MEDS: collagenase oint 30 gm 1 APPLIC TOPICAL (10:30)
[2023-07-26 11:15] LABS: Glucose Point of Care 158 mg/dL (70-110)
[2023-07-26 12:00] VITALS: BP 154/85; PULSE 87; RESP 18; TEMP 36.6; O2SAT 97
[2023-07-26] MEDS: insulin lispro 100 unit/1 mL SUBCUT ×2 (12:22→21:27)
[2023-07-26 16:00] VITALS: BP 134/80; PULSE 94; RESP 17; TEMP 36.9; O2SAT 96
[2023-07-26 17:02] LABS: Glucose Point of Care 104 mg/dL (70-110)
[2023-07-26] MEDS: pantoprazole 40 mg SDV IVP (17:49)
--- NOTE | 2023-07-26 18:58 | PM.PN ---
Subjective Subjective: She states has not really regained her energy. Vitals/I&O/Wt Last Vital Signs Temp 98.4 F 07/26/23 16:00 Pulse 94 07/26/23 16:00 Resp 17 07/26/23 16:00 BP 134/80 07/26/23 16:00 Pulse Ox 96 07/26/23 16:00 O2 Del Method Room Air 07/25/23 18:03 O2 Flow Rate 1.5 07/17/23 09:31 07/26/23 07/26/23 07/26/23 06:59 14:59 22:59 Intake Total 350 / 2430 290 / 290 530 / 820 Output Total 900 / 1900 1250 / 1250 Balance -550 / 530 290 / 290 -720 / -430 Weight last 48 hrs Weight 143.426 kg Physical Exam Const: COMMON NORMALS: patient oriented x3 and alert GENERAL APPEARANCE: cooperative ORIENTATION/CONSCIOUSNESS: Yes awake HENMT: COMMON NORMALS: oropharynx normal Neck/C-Spine: COMMON NORMALS: no JVD OTHER: R CVC Resp: COMMON NORMALS: normal respiratory effort and clear to auscultation bilaterally AUSCULTATION: clear to auscultation bilaterally Cardio: COMMON NORMALS: no JVD, regular rhythm, S1 normal heart sound present, S2 normal heart sound present and No murmurs present (Cardio) RHYTHM: regular rhythm HEART SOUNDS: S1 normal heart sound present and S2 normal heart sound present GI: COMMON NORMALS: Normal to inspection, nondistended, normoactive bowel sounds present, Soft to palpation and non-tender PALPATION: Yes Soft to palpation Extremity: COMMON NORMALS: no joint enlargement and no pedal edema Neuro: COMMON NORMALS: patient oriented x3 and moves all extremities SENSORIUM/ORIENTATION: Yes alert Skin: NARRATIVE SKIN EXAM: Dressing over pressure ulcers. Decreasing erythema on lower legs. Shallow ulcerations are healing up well. Erythema decreasing. Urinary Catheter Management: [place]: Cath Placed During This Visit: yes Reason for Continuing Indwelling Catheter: Other Urinary Catheter Date of Insertion: 07/14/23 Urinary Catheter Time of Insertion: 14:00 Data 07/26/23 05:42 07/26/23 05:42 A&P Assessment and plan (1) Bacterial infection due to Proteus mirabilis: Not feeling quite well yesterday, obtained labs, recheck CBC, BMP, reviewed. Unremarkable. Vitals are okay. Afebrile. Small wounds on lower extremities have been healing well. Some necrotic tissue in the center of the larger wound. Increase wound care with wet-to-dry to twice daily. Reviewed Accu-Cheks fluctuation in glucose, as low as 104 but up to 207. Change to consistent carbohydrate diet. Symptoms gradually improving. Remains afebrile. Decreasing erythema on lower legs. Her, noted necrotic area at the center of the large right hip ulcer. Currently with wet-to-dry dressings. Dressings are allowed to dry out. She is being repositioned, reportedly is helping more with repositioning. Continue wet-to-dry for now, or, if not drying out completely, consider switching to Santyl. Reassess to see if may benefit from sharp debridement. Continue IV antibiotics. Exchange CVC to PICC line. As she is having some malaise today we will repeat CBC, BMP. Discussed with nurse outreach case manager, still has not yet received authorization for LTAC. Pending. Reviewed Accu-Cheks, glucose intermittently elevated, discussed with her. But coming down as low as 139. Maintain consistent carbohydrate diet. Continue sliding scale insulin. ESBL MDRO Proteus resistant to cefepime in the right hip wound. At risk of seizure with antibiotic. Monitor. Has been continuing with central venous catheter for now. Pending arrangements for LTAC for continued antibiotics and as well as requiring significant wound care with extensive wounds. (2) Prediabetes: Reviewed Accu-Cheks fluctuation in glucose, as low as 104 but up to 207. Change to consistent carbohydrate diet. Consistent carbohydrate diet. Continue to monitor, does not appear to have diabetes but prediabetes with A1c of 6 (3) Fall: Unknown etiology. Unwitnessed. She is very deconditioned, requiring significant assistance even rolling in bed. With morbid obesity certainly at risk of fall. Once little bit stronger consider assessment of orthostatic blood pressures. As she does not appear dehydrated any further with significant weeping will hold further IV fluids. Component of rhabdomyolysis with elevated CPK. Slight improvement in CPK today. Appreciate TSH, CPK B12 and folate levels. PT evaluation. (4) Sepsis: Ruled on admission with tachycardia, altered mental status, target organ dysfunction with renal dysfunction, elevated lactate. Respiratory viral panel negative. MRSA swab positive. Continue with IV vancomycin. Switching meropenem to cefepime as above. Blood cultures growing Proteus mirabilis. Repeat blood cultures so far negative. CT head negative for deep abscess or osteomyelitis. (5) Acute cystitis: Reviewed urine culture, less than 5000 gram-negative rods on day 1, final. Qualifiers: Hematuria presence: without hematuria Qualified Code(s): N30.00 - Acute cystitis without hematuria (6) Wound cellulitis: As above. Post debridement on 07/16. Wound care as per surgical team. Follow-up or cultures. Continue wet-to-dry dressings. (7) Acute kidney injury: JOSE A so far resolved. Most likely in setting of dehydration along baseline home dose of lisinopril and hydrochlorothiazide. Medical reconciliation done for nephrotoxic drugs. CT abdomen pelvis rule out obstructive nephropathy. IV fluids as above. Monitor BMP daily. No metabolic acidosis currently. (8) Hypernatremia: Resolved. IV fluids as above. Repeat BMP in evening. (9) Rhabdomyolysis: Improved Qualifiers: Rhabdomyolysis type: non-traumatic Qualified Code(s): M62.82 - Rhabdomyolysis (10) Elevated lactic acid level: (11) Transaminitis: Most likely in setting of severe rhabdomyolysis. Resolving (12) Pressure ulcer: (13) Hypothyroidism: Plan Protein energy malnutrition: Albumin 1.8. Off IV albumin. Protein shakes with meals. Hypertension: Blood pressure is on the high side, noted reaching up into 150s. Will resume lower dose lisinopril. CODE STATUS: Patient is awake and alert. Wants to remain full code. Patient's family including sister would be the DPOA. Regular diet Holding heparin 5000 every 12 hourly for DVT prophylaxis given extensive bleeding from hip wound. Will restart heparin once bleeding stops. Protonix for PUD prophylaxis Attestations Medical Necessity Statement*: Continue admission for assessment and management of extensive pressure wounds with infection with ESBL MDRO Proteus, pending authorization for LTAC Diagnoses Bacterial infection due to Proteus mirabilis A49.8 Prediabetes R73.03 Fall W19.XXXA Sepsis A41.9 Acute cystitis N30.00 Hematuria presence: without hematuria Wound cellulitis L03.90 Acute kidney injury N17.9 Hypernatremia E87.0 Rhabdomyolysis M62.82 Rhabdomyolysis type: non-traumatic Elevated lactic acid level R79.89 Transaminitis R74.01 Pressure ulcer L89.90 Hypothyroidism E03.9
[2023-07-26 20:00] VITALS: BP 137/78; PULSE 95; RESP 17; TEMP 36.7; O2SAT 93
[2023-07-26 21:18] LABS: Glucose Point of Care 151 mg/dL (70-110)
[2023-07-26 22:12] LABS: Vancomycin Trough 8.9 ug/mL (10-15)
[2023-07-27] VITALS: BP 145/84; PULSE 88; RESP 17; TEMP 36.7; O2SAT 95
[2023-07-27] MEDS: meropenem 1,000 MG in sodium chloride 0.9% (plus) 50 ML 100 MG IV ×3 (02:18→17:25)
[2023-07-27 04:00] VITALS: BP 160/68; PULSE 95; RESP 18; TEMP 36.8; O2SAT 94
[2023-07-27 06:42] LABS: Glucose Point of Care 135 mg/dL (70-110)
[2023-07-27 07:57] VITALS: BP 147/82; PULSE 91; RESP 17; O2SAT 92
[2023-07-27] MEDS: quetiapine 25 mg Tablet PO ×2 (09:02→17:27)
[2023-07-27] MEDS: lisinopril 2.5 mg Tablet PO (09:02)
[2023-07-27] MEDS: aspirin 81 mg EC Tablet PO (09:02)
[2023-07-27] MEDS: amlodipine 10 mg Tablet PO (09:02)
[2023-07-27] MEDS: fluticasone nasal spray 16gm Btl 1 SPRAY NASAL ×2 (09:02→17:31)
[2023-07-27] MEDS: levothyroxine 88 mcg Tablet PO (09:02)
[2023-07-27] MEDS: collagenase oint 30 gm 1 APPLIC TOPICAL (09:03)
[2023-07-27] MEDS: vancomycin 1,500 MG/300 ML PIGGYBACK 200 MG IV ×2 (10:24→21:24)
[2023-07-27 11:05] LABS: Glucose Point of Care 178 mg/dL (70-110)
[2023-07-27 11:54] VITALS: BP 132/78; PULSE 91; RESP 16; TEMP 36.6; O2SAT 95
[2023-07-27] MEDS: insulin lispro 100 unit/1 mL SUBCUT ×3 (12:48→21:24)
--- NOTE | 2023-07-27 14:10 | XRR_ITS ---
PROCEDURE INFORMATION: Exam: XR Chest Exam date and time: 07/27/2023 3:48 PM Age: 63 years old Clinical indication: Device placement; Patient HX: Picc confirmation TECHNIQUE: Imaging protocol: Radiologic exam of the chest. Views: 1 view. COMPARISON: CR (CHEST, ) 07/14/2023 7:22 PM FINDINGS: Tubes, catheters and devices: Interval placement right-sided PICC line with tip at cavoatrial junction. Unchanged right IJ central line. Lungs: Suboptimal pulmonary expansion with associated accentuation of bronchovascular markings. Borderline pulmonary vascular congestion. No acute pulmonary parenchymal pathology evident given this factor. Pleural spaces: No pneumothorax. Heart/Mediastinum: Cardiomediastinal contours accentuated by incomplete pulmonary expansion and AP technique. Bones/joints: No significant pathology. XR/XR chest 1V portable [id number] IMPRESSION: Interval right-sided PICC line placement. No acute pathology.
--- NOTE | 2023-07-27 14:15 | PC.NURSE ---
Single lumen PICC placed to right basilic vein. Referred to vascular access nurse for PICC placement for usp antibiotic. Pt currently has central line in right neck. Risks and benefits and informed consent obtained from patient. Right arm assessed with right basilic vein measuring 4.5 mm, straight, and apparent best choice for placement. Using sterile technique and MST, right basilic vein accessed x 1 stick. Mid-arm circumference measured 10 cm from right AC 49 cm. Trimmed cath 50 cm with 1 cm external length noted. CXR shows tip to apparently be in distal SVC, awaiting on radiology to read. Line secured with stat-lock. Insertion site covered with Biopatch and TSM. Report given to bedside nurse, Enedina.
[2023-07-27 15:42] VITALS: BP 132/84; PULSE 88; RESP 17; O2SAT 95
[2023-07-27 17:18] LABS: Glucose Point of Care 252 mg/dL (70-110)
[2023-07-27] MEDS: pantoprazole 40 mg SDV IVP (17:27)
--- NOTE | 2023-07-27 18:35 | P.PN_ITS ---
Subjective 2 Subjective: She has been doing her exercises in bed with her legs. Vitals/I&O/Wt Last Vital Signs Temp 97.9 F 07/27/23 11:54 Pulse 88 07/27/23 15:42 Resp 17 07/27/23 15:42 BP 132/84 07/27/23 15:42 Pulse Ox 95 07/27/23 15:42 O2 Del Method Room Air 07/27/23 15:42 O2 Flow Rate 1.5 07/17/23 09:31 07/27/23 07/27/23 07/27/23 06:59 14:59 22:59 Intake Total 350 / 1170 710 / 710 290 / 1000 Output Total 450 / 2400 Balance -100 / -1230 710 / 710 290 / 1000 Weight last 48 hrs Weight 145.802 kg Weight 143.426 kg Physical Exam 2 Const: COMMON NORMALS: patient oriented x3 and alert GENERAL APPEARANCE: c ooperative ORIENTATION/CONSCIOUSNESS: Yes awake HENMT: COMMON NORMALS: oropharynx normal Neck/C-Spine: COMMON NORMALS: no JVD OTHER: R CVC Resp: COMMON NORMALS: normal respiratory effort and clear to auscultation bilaterally AUSCULTATION: clear to auscultation bilaterally Cardio: COMMON NORMALS: no JVD, regular rhythm, S1 normal heart sound present, S2 normal heart sound present and No murmurs present (Cardio) RHYTHM: regular rhythm HEART SOUNDS: S1 normal heart sound present and S2 normal heart sound present GI: COMMON NORMALS: Normal to inspection, nondistended, normoactive bowel sounds present, Soft to palpation and non-tender PALPATION: Yes Soft to palpation Extremity: COMMON NORMALS: no joint enlargement and no pedal edema Neuro: COMMON NORMALS: patient oriented x3 and moves all extremities S ENSORIUM/ORIENTATION: Yes alert Skin: NARRATIVE SKIN EXAM: Dressing over pressure ulcers. Decreasing erythema on lower legs. Shallow ulcerations are healing up well. Erythema decreasing. Urinary Catheter Management: [place]: Cath Placed During This Visit: yes Reason for Continuing Indwelling Catheter: Assist Healing of Perineal & Sacral Wounds- Incontinent Patients Urinary Catheter Date of Insertion: 07/14/23 Urinary Catheter Time of Insertion: 14:00 Data 07/26/23 05:42 07/26/23 05:42 A&P Assessment and plan (1) Bacterial infection due to Proteus mirabilis: Reviewed blood glucose. At 252, but as low as 135. Continue SSI as currently. Continue carbohydrate diet. With some necrosis centrally in the wound, increased dressing change frequency to twice daily with wet-to-dry. Reassess. Consider Santyl versus sharp debridement. Reviewed vancomycin trough, although at 8.9, vancomycin dose adjusted to 1500 mg twice daily. Symptoms gradually improving. Remains afebrile. Decreasing erythema on lower legs. Her, noted necrotic area at the center of the large right hip ulcer. Currently with wet-to-dry dressings. Dressings are allowed to dry out. She is being repositioned, reportedly is helping more with repositioning. Continue wet-to-dry for now, or, if not drying out completely, consider switching to Santyl. Reassess to see if may benefit from sharp debridement. Continue IV antibiotics. Exchange CVC to PICC line. As she is having some malaise today we will repeat CBC, BMP. Discussed with keycase assembler, still has not yet received authorization for LTAC. Pending. Reviewed Accu-Cheks, glucose intermittently elevated, discussed with her. But coming down as low as 139. Maintain consistent carbohydrate diet. Continue sliding scale insulin. ESBL MDRO Proteus resistant to cefepime in the right hip wound. At risk of seizure with antibiotic. Monitor. Has been continuing with central venous catheter for now. Pending arrangements for LTAC for continued antibiotics and as well as requiring significant wound care with extensive wounds. (2) Prediabetes: Reviewed Accu-Cheks fluctuation in glucose, as low as 104 but up to 207. Change to consistent carbohydrate diet. Consistent carbohydrate diet. Continue to monitor, does not appear to have diabetes but prediabetes with A1c of 6 (3) Fall: Unknown etiology. Unwitnessed. She is very deconditioned, requiring significant assistance even rolling in bed. With morbid obesity certainly at risk of fall. Once little bit stronger consider assessment of orthostatic blood pressures. As she does not appear dehydrated any further with significant weeping will hold further IV fluids. Component of rhabdomyolysis with elevated CPK. Slight improvement in CPK today. Appreciate TSH, CPK B12 and folate levels. PT evaluation. (4) Sepsis: Ruled on admission with tachycardia, altered mental status, target organ dysfunction with renal dysfunction, elevated lactate. Respiratory viral panel negative. MRSA swab positive. Continue with IV vancomycin. Switching meropenem to cefepime as above. Blood cultures growing Proteus mirabilis. Repeat blood cultures so far negative. CT head negative for deep abscess or osteomyelitis. (5) Acute cystitis: Reviewed urine culture, less than 5000 gram-negative rods on day 1, final. Qualifiers: Hematuria presence: without hematuria Qualified Code(s): N30.00 - Acute cystitis without hematuria (6) Wound cellulitis: As above. Post debridement on 07/16. Wound care as per surgical team. Follow-up or cultures. Continue wet-to-dry dressings. (7) Acute kidney injury: JOSE A so far resolved. Most likely in setting of dehydration along baseline home dose of lisinopril and hydrochlorothiazide. Medical reconciliation done for nephrotoxic drugs. CT abdomen pelvis rule out obstructive nephropathy. IV fluids as above. Monitor BMP daily. No metabolic acidosis currently. (8) Hypernatremia: Resolved. IV fluids as above. Repeat BMP in evening. (9) Rhabdomyolysis: Improved Qualifiers: Rhabdomyolysis type: non-traumatic Qualified Code(s): M62.82 - Rhabdomyolysis (10) Elevated lactic acid level: (11) Transaminitis: Most likely in setting of severe rhabdomyolysis. Resolving (12) Pressure ulcer: (13) Hypothyroidism: Plan Protein energy malnutrition: Albumin 1.8. Off IV albumin. Protein shakes with meals. Hypertension: Blood pressure is on the high side, noted reaching up into 150s. Will resume lower dose lisinopril. CODE STATUS: Patient is awake and alert. Wants to remain full code. Patient's family including sister would be the DPOA. Regular diet Holding heparin 5000 every 12 hourly for DVT prophylaxis given extensive bleeding from hip wound. Will restart heparin once bleeding stops. Protonix for PUD prophylaxis Attestations 2 Medical Necessity Statement*: Continue admission for assessment and management of extensive pressure wounds with infection with ESBL MDRO Proteus, pending authorization for LTAC Diagnoses Bacterial infection due to Proteus mirabilis A49.8 Prediabetes R73.03 Fall W19.XXXA Sepsis A41.9 Acute cystitis N30.00 Hematuria presence: without hematuria Wound cellulitis L03.90 Acute kidney injury N17.9 Hypernatremia E87.0 Rhabdomyolysis M62.82 Rhabdomyolysis type: non-traumatic Elevated lactic acid level R79.89 Transaminitis R74.01 Pressure ulcer L89.90 Hypothyroidism E03.9
[2023-07-27 19:42] VITALS: BP 150/75; PULSE 96; RESP 18; TEMP 37; O2SAT 98
[2023-07-27 20:40] LABS: Glucose Point of Care 205 mg/dL (70-110)
[2023-07-28] VITALS: BP 145/80; PULSE 89; RESP 18; TEMP 37; O2SAT 94
[2023-07-28] MEDS: meropenem 1,000 MG in sodium chloride 0.9% (plus) 50 ML 100 MG IV ×3 (01:57→18:00)
[2023-07-28 04:11] VITALS: BP 144/82; PULSE 88; RESP 17; TEMP 36.8; O2SAT 96
[2023-07-28 06:41] LABS: Glucose Point of Care 149 mg/dL (70-110)
[2023-07-28 07:26] VITALS: BP 139/82; PULSE 90; RESP 18; TEMP 36.9; O2SAT 93
[2023-07-28] MEDS: insulin lispro 100 unit/1 mL SUBCUT ×3 (09:04→21:25)
[2023-07-28] MEDS: fluticasone nasal spray 16gm Btl 1 SPRAY NASAL ×2 (09:05→18:00)
[2023-07-28] MEDS: amlodipine 10 mg Tablet PO (09:06)
[2023-07-28] MEDS: quetiapine 25 mg Tablet PO ×2 (09:06→18:00)
[2023-07-28] MEDS: aspirin 81 mg EC Tablet PO (09:06)
[2023-07-28] MEDS: lisinopril 2.5 mg Tablet PO (09:06)
[2023-07-28] MEDS: levothyroxine 88 mcg Tablet PO (09:06)
[2023-07-28] MEDS: collagenase oint 30 gm 1 APPLIC TOPICAL (09:07)
[2023-07-28] MEDS: vancomycin 1,500 MG/300 ML PIGGYBACK 200 MG IV ×2 (09:43→21:25)
[2023-07-28 11:36] LABS: Glucose Point of Care 131 mg/dL (70-110)
[2023-07-28 12:09] VITALS: BP 129/79; PULSE 90; RESP 18; TEMP 36.4; O2SAT 93
--- NOTE | 2023-07-28 15:39 | P.PN_ITS ---
Subjective 2 Subjective: No acute events overnight. Hospital course appreciated. Seen with multiple family numbers at bedside. Patient seems significantly jovial and in better mood today. Denies any nausea vomiting, headache. States she is getting stronger. No blood work for last few days. Vitals/I&O/Wt Last Vital Signs Temp 97.5 F L 07/28/23 12:09 Pulse 90 07/28/23 12:09 Resp 18 07/28/23 12:09 BP 129/79 07/28/23 12:09 Pulse Ox 93 07/28/23 12:09 O2 Del Method Room Air 07/28/23 12:09 O2 Flow Rate 1.5 07/17/23 09:31 07/28/23 07/28/23 07/28/23 06:59 14:59 22:59 Intake Total 290 / 1830 1070 / 1070 Output Total 1300 / 1300 Balance -1010 / 530 1070 / 1070 Weight last 48 hrs Weight 145.802 kg Weight 145.802 kg Physical Exam 2 Narrative: General: No acute distress, AO x3, mildly confused HEENT: PERRLA, pupils bilaterally equal and reactive Chest: Bronchial breath sounds all over lung rodgers with occasional rhonchi and decreased air entry bilateral lower zone CVS: S1-S2 regular, no murmurs, tachycardia, no gallops, no rubs Abdomen: Soft, nontender, no organomegaly, bowel sounds present Neuro: No focal deficits, no facial deformity, AO x3, power 4 x 5 in both upper limbs, lower limbs cannot be assessed Extremity: Bilateral lower limb 1+ pitting edema, left leg as below with foul- smelling wounds with serosanguineous discharge Urinary Catheter Management: [place]: Cath Placed During This Visit: yes Reason for Continuing Indwelling Catheter: Assist Healing of Perineal & Sacral Wounds- Incontinent Patients Urinary Catheter Date of Insertion: 07/14/23 Urinary Catheter Time of Insertion: 14:00 Data 07/26/23 05:42 07/26/23 05:42 A&P Assessment and plan (1) Bacterial infection due to Proteus mirabilis: Appreciate sensitivities. Continue with meropenem. Plan to continue IV antibiotics for overall 4 weeks given significant cellulitis on admission. (2) Sepsis: Ruled on admission with tachycardia, altered mental status, target organ dysfunction with renal dysfunction, elevated lactate. Respiratory viral panel negative. MRSA swab positive. Continue with vancomycin and meropenem. Plan to continue antibiotics for overall 4 weeks. PICC line placed on 07/27. Remove central line. Repeat blood cultures so far negative. Patient has remained hemodynamically stable and afebrile. Repeat blood work tomorrow. (3) Acute cystitis: Follow-up urine culture Qualifiers: Hematuria presence: without hematuria Qualified Code(s): N30.00 - Acute cystitis without hematuria (4) Wound cellulitis: Post debridement on 07/16. Wound care as per surgical team. Follow-up or cultures. (5) Acute kidney injury: Most likely in setting of dehydration along baseline home dose of lisinopril and hydrochlorothiazide. Resolved. Restarted low-dose lisinopril for hypertension. Continue to monitor BMP. (6) Hypernatremia: Resolved. (7) Rhabdomyolysis: Resolved. Qualifiers: Rhabdomyolysis type: non-traumatic Qualified Code(s): M62.82 - Rhabdomyolysis (8) Fall: Unknown etiology. Unwitnessed. Patient is severely deconditioned. Appreciate TSH, CPK, vitamin B12 folate levels. (9) Elevated lactic acid level: (10) Transaminitis: Repeat CMP in AM. Seems to be resolving. (11) Pressure ulcer: (12) Hypothyroidism: Continue with levothyroxine 88 mcg daily. Plan Depression: States severely depressed since passing away of her nephew. Improving. Continue with Seroquel 25 mg twice daily. Protein energy malnutrition: Continue with protein shakes. Hypertension: Goal blood pressure less than 140/90 mmHg. Blood pressure is improving. Continue with 10 mg daily. Continue with lisinopril 2.5 mg daily. Uptitrate as for goal blood pressures. CODE STATUS: Patient is awake and alert. Wants to remain full code. Patient's family including sister would be the DPOA. Regular diet Holding heparin 5000 every 12 hourly for DVT prophylaxis given extensive bleeding from hip wound. Will restart heparin once bleeding stops. Protonix for PUD prophylaxis Patient is significantly deconditioned. Most likely patient will need IV antibiotics and surgical debridement. Patient needs significant wound care, rehabitation and IV antibiotics for overall 4 weeks. Has been accepted at [facility]. Awaiting prior authorization. Attestations 2 Medical Necessity Statement*: Requires further hospitalization for management of Proteus mirabilis bacteremia, severe cellulitis with infected wounds requiring debridement while safe discharge planning is sought Diagnoses Bacterial infection due to Proteus mirabilis A49.8 Sepsis A41.9 Acute cystitis N30.00 Hematuria presence: without hematuria Wound cellulitis L03.90 Acute kidney injury N17.9 Hypernatremia E87.0 Rhabdomyolysis M62.82 Rhabdomyolysis type: non-traumatic Fall W19.XXXA Elevated lactic acid level R79.89 Transaminitis R74.01 Pressure ulcer L89.90 Hypothyroidism E03.9
[2023-07-28 17:19] LABS: Glucose Point of Care 191 mg/dL (70-110)
[2023-07-28 17:28] VITALS: BP 131/83; PULSE 95; RESP 18; TEMP 36.6; O2SAT 99
[2023-07-28] MEDS: pantoprazole 40 mg SDV IVP (17:59)
[2023-07-28 20:00] VITALS: BP 116/76; PULSE 99; RESP 18; TEMP 36.7; O2SAT 98
[2023-07-28 20:47] LABS: Glucose Point of Care 207 mg/dL (70-110)
[2023-07-29] VITALS: BP 132/80; PULSE 91; RESP 18; TEMP 36.6; O2SAT 96
[2023-07-29] MEDS: meropenem 1,000 MG in sodium chloride 0.9% (plus) 50 ML 100 MG IV ×2 (02:42→09:55)
[2023-07-29 04:00] VITALS: BP 136/82; PULSE 89; RESP 17; TEMP 36.6; O2SAT 96
[2023-07-29 06:05] LABS: Basophils % 0.7 %; Eosinophils # 0.3 10^3/uL (0.0-0.8); Eosinophils % 6.1 %; Hematocrit 29.5 % (36-47); Lymphocytes # 1.1 10^3/uL (0.8-4.8); Lymphocytes % 24.5 %; Mean Corpuscular HGB Conc 30.5 g/dL (30-55); Mean Corpuscular Volume 95.2 fl (85-98); Mean Platelet Volume 10.5 fL (7.4-10.4); Monocytes # 0.5 10^3/uL (0.2-0.9); Monocytes % 12.3 %; Neutrophils # 2.47 10^3/uL (1.8-7.7); Neutrophils % 56.2 %; Nucleated Red Blood Cells % 0 %; Platelet Count 218 10^3/cmm (157-399); Red Cell Distribution Width 17.6 % (12.1-15.1)
[2023-07-29 06:24] LABS: Alanine Aminotransferase 13 U/L (0-33); Albumin Level 2.5 g/dL (3.5-5.2); Alkaline Phosphatase 63 U/L (35-105); Anion Gap 8.9 (5-19); Aspartate Amino Transferase 20 U/L (0-32); Blood Urea Nitrogen 16 mg/dL (8-23); Calcium 8.4 mg/dL (8.5-10.5); Carbon Dioxide 30 mmol/L (22-29); Chloride 102 mmol/L (98-107); Glomerular Filtration Rate 161.2 mL/min (90-130); Glucose 141 mg/dL (65-115); Osmolality Calculated 288 mOsm/kg (285-295); Potassium 3.9 mmol/L (3.5-5.1); Sodium 137 mmol/L (136-145); Total Bilirubin 0.3 mg/dL (0.15-1.2); Total Protein 5.5 g/dL (6.6-8.7)
[2023-07-29 06:39] LABS: Glucose Point of Care 136 mg/dL (70-110)
[2023-07-29 08:00] VITALS: BP 134/77; PULSE 91; RESP 17; TEMP 36.9; O2SAT 94
[2023-07-29] MEDS: aspirin 81 mg EC Tablet PO (09:54)
[2023-07-29] MEDS: quetiapine 25 mg Tablet PO (09:54)
[2023-07-29] MEDS: levothyroxine 88 mcg Tablet PO (09:54)
[2023-07-29] MEDS: lisinopril 2.5 mg Tablet PO (09:54)
[2023-07-29] MEDS: amlodipine 10 mg Tablet PO (09:55)
[2023-07-29] MEDS: collagenase oint 30 gm 1 APPLIC TOPICAL (09:55)
--- NOTE | 2023-07-29 10:40 | P.TS_ITS ---
Transfer Summary Providers 2 Date of Admission: 07/14/23 18:34 Date of Discharge/Transfer: 07/29/23 Attending Provider at Admission: Anil Magana MD Attending Provider at Transfer: Anil Magana MD Consults: Surgery: Dr. Morejon Primary Care Provider: Ricky Clay MD Transfer Plans: Anticipated date of transfer: 07/29/23 . Diagnoses at Discharge Discharge Diagnosis (1) Bacterial infection due to Proteus mirabilis: Status: Acute (2) Sepsis: Status: Acute (3) Acute cystitis: Status: Acute Qualifiers: Hematuria presence: without hematuria Qualified Code(s): N30.00 - Acute cystitis without hematuria (4) Wound cellulitis: Status: Acute (5) Acute kidney injury: Status: Acute (6) Hypernatremia: Status: Acute (7) Rhabdomyolysis: Status: Acute Qualifiers: Rhabdomyolysis type: non-traumatic Qualified Code(s): M62.82 - Rhabdomyolysis (8) Fall: Status: Acute (9) Elevated lactic acid level: Status: Acute (10) Transaminitis: Status: Acute (11) Pressure ulcer: Status: Acute (12) Hypothyroidism: Status: Acute Reason for Visit Reason for Visit fall Hospital Course Hospital Course Negrita Lopez is a 63 year old female with PMH of hypothyroidism, HTN brought to ER after she was found down at home by her father. Patient on examonation is awkae and alert. Patient states she has been on the ground for the last 3 days. She was trying to get out of her recliner 3 days ago and fell down after which she did not have energy to get up by herself. She does not remember how she fell. Currently complaining of pain in her left lower leg. States she has always had chronic wounds on the left leg but has been getting worse now. She states a week prior to her fall she had flulike symptoms with runny nose and congestion but has been getting better. In the ER patient was found in disheveled condition covered in feces with maggots on her legs which were cleaned up. Patient was admitted to the ICU for further evaluation and management of septic shock in setting of significant left leg and right hip cellulitis. She was also found to be in acute kidney injury, rhabdomyolysis, hypernatremia on admission with elevated lactate. She was started on IV fluids, pressors and broad- spectrum antibiotics. During hospitalization blood cultures from admission came back positive for Proteus. Surgery was consulted and she underwent deep wound debridement on 07/16. Osteomyelitis was ruled out with negative CT on admission. Wound cultures were also positive for Proteus ESBL. Patient was found to be MRSA positive. Patient was severely deconditioned on admission. She was also found to be depressed for which she was started on Seroquel. Patient's hemodynamics, mentation, wounds, physical deconditioning has been gradually improving. Safe discharge plan were discussed in detail. Patient requires aggressive wound care given significant decub ulcers, IV antibiotics for overall 4 weeks from 07/16 including ertapenem and vancomycin. Safe discharge planning to LTAC was discussed in detail for which patient was agreeable. PICC line was placed on 07/27. She has been discharged to LTAC in hemodynamically stable condition for aggressive wound care, prolonged IV antibiotics and physical therapy. Physical Exam 2 Narrative: General: No acute distress, AO x3, mildly confused HEENT: PERRLA, pupils bilaterally equal and reactive Chest: Bronchial breath sounds all over lung rodgers with occasional rhonchi and decreased air entry bilateral lower zone CVS: S1-S2 regular, no murmurs, tachycardia, no gallops, no rubs Abdomen: Soft, nontender, no organomegaly, bowel sounds present Neuro: No focal deficits, no facial deformity, AO x3, power 4 x 5 in both upper limbs, lower limbs cannot be assessed Extremity: Bilateral lower limb 1+ pitting edema, left leg as below with foul- smelling wounds with serosanguineous discharge Extremity: OTHER: Wounds on admission. Now have been debrided and surgically bandaged. Left medial thigh and lateral leg as below Decub/right hip Urinary Catheter Management: [place]: Cath Placed During This Visit: yes Reason for Continuing Indwelling Catheter: Assist Healing of Perineal & Sacral Wounds- Incontinent Patients Urinary Catheter Date of Insertion: 07/14/23 Urinary Catheter Time of Insertion: 14:00 TS Data Studies Completed and Pending Completed Studies During Hospitalization Category Date Time Status CT abdomen pelvis wo con [id number] Stat Cat Scan 07/14/23 15:[address] lower leg LT wo con* [id number] Stat Cat Scan 07/14/23 16:[address] pelvis w con* [id number] Routine Cat Scan 07/15/23 16:01 Completed CXRP [XR chest 1V portable [id number]] Routine Exams 07/14/23 17:36 Completed CXRP [XR chest 1V portable [id number]] Routine Exams 07/27/23 14:10 Completed XR chest 1V portable 45000 Stat Exams 07/14/23 11:49 Completed XR hip RT 2-3V wo/w pel* [id number] Stat Exams 07/14/23 11:49 Completed US arterial duplex lower extremity bilat [CV arterial Ultrasound 07/14/23 11:55 [place] [id number]] Stat Laboratory Last Values WBC 4.40 10^3/uL (3.29-11.43) 07/29/23 05:32 RBC 3.10 10^6/uL (3.85-5.65) L 07/29/23 05:32 Hgb 9.00 g/dL (11.27-16.99) L 07/29/23 05:32 Hct 29.5 % (36-47) L 07/29/23 05:32 MCV 95.2 fl (85-98) 07/29/23 05:32 MCH 29.0 pg (27-33) 07/29/23 05:32 MCHC 30.5 g/dL (30-55) 07/29/23 05:32 RDW 17.6 % (12.1-15.1) H 07/29/23 05:32 Plt Count 218 10^3/cmm (157-399) 07/29/23 05:32 MPV 10.5 fL (7.4-10.4) H 07/29/23 05:32 Neut % (Auto) 56.2 % 07/29/23 05:32 Lymph % (Auto) 24.5 % 07/29/23 05:32 [place] % (Auto) 12.3 % 07/29/23 05:32 Eos % (Auto) 6.1 % 07/29/23 05:32 Baso % (Auto) 0.7 % 07/29/23 05:32 Reticulocyte % (Auto) 3.1 % (0.5-2.0) H 07/18/23 07:43 Neut # (Auto) 2.47 10^3/uL (1.8-7.7) 07/29/23 05:32 Lymph # (Auto) 1.1 10^3/uL (0.8-4.8) 07/29/23 05:32 [place] # (Auto) 0.5 10^3/uL (0.2-0.9) 07/29/23 05:32 Eos # (Auto) 0.3 10^3/uL (0.0-0.8) 07/29/23 05:32 Baso # (Auto) 0.0 10^3/uL (0.0-0.1) 07/29/23 05:32 Nucleated RBC % (auto) 0 % 07/29/23 05:32 Nucleated RBCs # 0.0 /100WBC 07/29/23 05:32 PT 17.00 SECONDS (12.1-14.9) H 07/14/23 12:54 INR 1.34 (0.8-1.2) H 07/14/23 12:54 Sodium 137 mmol/L (136-145) 07/29/23 05:32 Potassium 3.9 mmol/L (3.5-5.1) 07/29/23 05:32 Chloride 102 mmol/L (98-107) 07/29/23 05:32 Carbon Dioxide 30 mmol/L (22-29) H 07/29/23 05:32 Anion Gap 8.9 (5-19) 07/29/23 05:32 BUN 16 mg/dL (8-23) 07/29/23 05:32 Creatinine 0.4 mg/dL (0.5-0.9) L 07/29/23 05:32 GFR Calculation 161.2 mL/min (90-130) H 07/29/23 05:32 Glucose 141 mg/dL (65-115) H 07/29/23 05:32 POC Glucose 136 mg/dL (70-110) H 07/29/23 06:34 Estimat Average Glucose 126 07/15/23 04:04 Hemoglobin A1c 6.0 % (4.0-6.0) 07/15/23 04:04 Calculated Osmolality 288 mOsm/kg (285-295) 07/29/23 05:32 Lactic Acid 4.0 mmol/L (0.5-2.2) H 07/14/23 12:54 Lactic Acid (Sepsis) 2.3 mmol/L (0.5-2.2) H 07/14/23 19:54 Calcium 8.4 mg/dL (8.5-10.5) L 07/29/23 05:32 Phosphorus 3.3 mg/dL (2.5-4.5) 07/15/23 04:04 Magnesium 3.1 mg/dL (1.7-2.3) H 07/15/23 04:04 Iron 27 ug/dL (37-145) L 07/14/23 12:54 TIBC 179 mcg/dl 07/14/23 12:54 % Saturation 15.0 % (20-50) L 07/14/23 12:54 Unsat Iron Binding 152 ug/dL (112-347) 07/14/23 12:54 Total Bilirubin 0.3 mg/dL (0.15-1.2) 07/29/23 05:32 AST 20 U/L (0-32) 07/29/23 05:32 ALT 13 U/L (0-33) 07/29/23 05:32 Alkaline Phosphatase 63 U/L (35-105) 07/29/23 05:32 Creatine Kinase 1025 U/L (26-192) H* 07/17/23 03:35 Total Protein 5.5 g/dL (6.6-8.7) L 07/29/23 05:32 Albumin 2.5 g/dL (3.5-5.2) L 07/29/23 05:32 Globulin 3.0 g/dL (1.3-4.6) 07/29/23 05:32 Triglycerides 224 mg/dL (0-150) H 07/15/23 04:04 Cholesterol 116 mg/dL (0-200) 07/15/23 04:04 LDL Cholesterol, Calc 50 mg/dL (50-129) 07/15/23 04:04 HDL Cholesterol 21 mg/dL (60-100) L 07/15/23 04:04 LDL/HDL Ratio 2.38 RATIO (0.00-3.22) 07/15/23 04:04 Cholesterol/HDL Ratio 5.52 mg/dL (0.0-4.40) H 07/15/23 04:04 Vitamin B12 950 pg/mL (232-1245) 07/14/23 12:54 Folate 14.1 ng/mL (4.8-37.3) 07/15/23 04:04 Procalcitonin 0.45 ng/mL (0-0.5) 07/15/23 04:04 TSH 1.20 uIU/mL (0.27-4.20) 07/14/23 12:54 Urine Color Yellow (Yellow) 07/14/23 14:20 Urine Appearance Hazy (CLEAR) A 07/14/23 14:20 Urine pH 5 (5-7) 07/14/23 14:20 Ur Specific [place] 1.025 (1.005-1.030) 07/14/23 14:20 Urine Protein 2+ (Negative) H 07/14/23 14:20 Urine Glucose (UA) 1+ (Normal) H 07/14/23 14:20 Urine Ketones 1+ (Negative) H 07/14/23 14:20 Urine Blood 3+ (Negative) H 07/14/23 14:20 Urine Nitrate Positive (Negative) H 07/14/23 14:20 Urine Bilirubin 2+ (Negative) H 07/14/23 14:20 Urine Urobilinogen 4+ mg/dL (Negative) H 07/14/23 14:20 Ur Leukocyte Esterase 1+ (Negative) H 07/14/23 14:20 Urine RBC 15-25 /hpf (0-2) H 07/14/23 14:20 Urine WBC 0-4 /hpf (0-5) H 07/14/23 14:20 Ur Eosinophil Smear TNP 07/15/23 08:35 Ur Squamous Epith Cells 5-10 /hpf (0-5) H 07/14/23 14:20 Ur Transition Epith Cell 0-4 /hpf 07/14/23 14:20 Ur Renal Epithelial Cell 0-4 /hpf 07/14/23 14:20 Calcium Oxalate Crystal 0-4 /hpf H 07/14/23 14:20 Other Crystals Amm biurate /hpf 07/14/23 14:20 Amorphous Sediment Not Reportable 07/14/23 14:20 Urine Bacteria 2+ /hpf (NONE) H 07/14/23 14:20 Fine Granular Casts 0-4 /lpf H 07/14/23 14:20 Urine Mucus 1+ /hpf 07/14/23 14:20 Ur Oval Fat Bodies 1+ /hpf 07/14/23 14:20 Urine Eosinophils No eosinophils seen 07/15/23 08:35 Ur Random Sodium < 10 mmol/L 07/15/23 08:35 Ur Random Potassium 39 mmol/L 07/15/23 08:35 Ur Random Chloride < 10 mmol/L 07/15/23 08:35 Urine Creatinine 81 mg/dL (28-217) 07/15/23 08:35 Nasal Influ A H1 2009 PCR Not detected (NOT DETECT) 07/15/23 00:30 Vancomycin Trough 8.9 ug/mL (10-15) L 07/26/23 20:43 Urine Opiates Screen Negative ng/mL (Negative) 07/14/23 14:20 Ur Barbiturates Screen Negative ng/mL (Negative) 07/14/23 14:20 Ur Phencyclidine Scrn Negative ng/mL (Negative) 07/14/23 14:20 Ur Amphetamines Screen Negative ng/mL (Negative) 07/14/23 14:20 U Benzodiazepines Scrn Negative ng/mL (Negative) 07/14/23 14:20 Urine Cocaine Screen Negative ng/mL (Negative) 07/14/23 14:20 U Marijuana (THC) Screen Negative ng/mL (Negative) 07/14/23 14:20 Adenovirus (PCR) Not detected (NOT DETECT) 07/15/23 00:30 C. pneumoniae DNA (PCR) Not detected (NOT DETECT) 07/15/23 00:30 Coronavirus 229E (PCR) Not detected (NOT DETECT) 07/15/23 00:30 Human Metapneumovir PCR Not detected (NOT DETECT) 07/15/23 00:30 Influenza A (H1) PCR Not detected (NOT DETECT) 07/15/23 00:30 Influenza A (H3) PCR Not detected (NOT DETECT) 07/15/23 00:30 Influenza Type A (PCR) Not detected (NOT DETECT) 07/15/23 00:30 Influenza Type B (PCR) Not detected (NOT DETECT) 07/15/23 00:30 M. pneumoniae (PCR) Not detected (NOT DETECT) 07/15/23 00:30 Parainfluenza 1 (PCR) Not detected (NOT DETECT) 07/15/23 00:30 Parainfluenza 2 (PCR) Not detected (NOT DETECT) 07/15/23 00:30 Parainfluenza 3 (PCR) Not detected (NOT DETECT) 07/15/23 00:30 Parainfluenza 4 (PCR) Not detected (NOT DETECT) 07/15/23 00:30 RSV Type A (PCR) Not detected (NOT DETECT) 07/15/23 00:30 RSV Type B (PCR) Not detected (NOT DETECT) 07/15/23 00:30 Entero/Rhino (PCR) Not detected (NOT DETECT) 07/15/23 00:30 SARS-CoV-2 (PCR) Not detected (NOT DETECT) 07/15/23 00:30 MRSA (PCR) Detected (NOT DETECTED) A 07/15/23 08:35 Blood Type A Positive 07/18/23 07:43 Rho(D) Type Rh positive 07/18/23 07:43 Antibody Screen Negative 07/18/23 07:43 Crossmatch See Detail 07/18/23 07:43 Microbiology 07/16/23 13:50 Hip - Wound Gram Stain - Final 07/16/23 13:50 Hip - Wound Anaerobic Culture - Final 07/16/23 13:50 Hip - Wound Tissue Culture - Final Proteus mirabilis esbl 07/16/23 04:15 Blood Blood Culture - Final NO GROWTH AFTER 5 DAYS 07/16/23 04:13 Blood Blood Culture - Final NO GROWTH AFTER 5 DAYS 07/14/23 12:54 Blood Blood Culture - Final Proteus mirabilis 07/14/23 18:53 Blood Blood Culture - Final NO GROWTH AFTER 5 DAYS 07/14/23 14:20 Urine,Clean Catch Urine Culture - Final 07/15/23 08:35 Unknown Source Legionella Urinary Antigen - Final Radiology Impressions Duplex Scan Lower Extremity Artery 07/14/23 11:55 IMPRESSION: No stenosis or occlusion. Abdomen/Pelvis CT 07/14/23 15:18 IMPRESSION: 6 mm nonobstructing left renal calculus. Lower Extremity CT 07/14/23 16:22 IMPRESSION: No evidence of abscess or osteomyelitis. Pelvis CT 07/15/23 16:01 IMPRESSION: No loculated collection/abscess or evidence of acute osteomyelitis. Chest X-Ray 07/27/23 14:10 IMPRESSION: Interval right-sided PICC line placement. No acute pathology. Recent Clincial Data Last Vital Signs Temp 98.4 F 07/29/23 08:00 Pulse 91 07/29/23 08:00 Resp 17 07/29/23 08:00 BP 134/77 07/29/23 08:00 Pulse Ox 94 07/29/23 08:00 O2 Del Method Room Air 07/29/23 08:00 O2 Flow Rate 1.5 07/17/23 09:31 Vital Signs Temp Pulse Resp BP Pulse Ox O2 Del Method 07/29/23 08:00 98.4 F 91 17 134/77 94 Room Air 07/29/23 04:00 97.8 F 89 17 136/82 96 07/29/23 00:00 97.9 F 91 18 132/80 96 Intake & Output/Weight 07/27/23 07/28/23 07/29/23 07/30/23 06:59 06:59 06:59 06:59 Intake Total 1170 / 1170 1830 / 1830 2290 / 2290 480 / 480 Output Total 2400 / 2400 1300 / 1300 1450 / 1450 Balance -1230 / -1230 530 / 530 840 / 840 480 / 480 Weight 145.802 kg 145.802 kg 140.251 kg Vitals Last Vital Signs Temp 98.4 F 07/29/23 08:00 Pulse 91 07/29/23 08:00 Resp 17 07/29/23 08:00 BP 134/77 07/29/23 08:00 Pulse Ox 94 07/29/23 08:00 O2 Del Method Room Air 07/29/23 08:00 O2 Flow Rate 1.5 07/17/23 09:31 TS Medications Medications Acetaminophen (Acetaminophen 325 Mg Tablet) 650 mg PO Q6H PRN PRN Reason: Mild/Mod Pain Or Temp >/= 101 Last Admin: 07/25/23 23:38 Dose: 650 mg Amlodipine Besylate (Amlodipine 10 Mg Tablet) 10 mg PO DAILY [facility] Last Admin: 07/29/23 09:55 Dose: 10 mg Aspirin (Aspirin 81 Mg Ec Tablet) 81 mg PO DAILY [facility] Last Admin: 07/29/23 09:54 Dose: 81 mg Bisacodyl (Bisacodyl 5 Mg Tablet) 10 mg PO DAILY PRN; Protocol PRN Reason: Constipation (see protocol) Collagenase (Collagenase Oint 30 Gm) 1 applic TOPICAL DAILY [facility] Last Admin: 07/29/23 09:55 Dose: 1 applic Dextrose (Dextrose 50% Syringe 50 Ml) 25 ml IVP ONCE PRN; Protocol PRN Reason: hypoglycemia protocol Dextrose (Dextrose 50% Syringe 50 Ml) 50 ml IVP PRN PRN; Protocol PRN Reason: hypoglycemia protocol Fluticasone Propionate (Fluticasone Nasal [place] 16gm Btl) 1 spray NASAL BID [facility] Last Admin: 07/29/23 09:55 Dose: Not Given Heparin Sodium (Porcine) (Heparin 5,000 Unit/Ml Inj 1 Ml) 5,000 unit SUBCUT Q12H [facility] Last Admin: 07/16/23 17:41 Dose: 5,000 unit Dextrose (D5w) 500 mls @ 0 mls/hr IV ONCE PRN; Protocol PRN Reason: Adult Acute Hypoglycemia Prot Meropenem 1,000 mg/ Sodium (Chloride) 50 mls @ 100 mls/hr IV Q8H [facility]; Protocol Last Admin: 07/29/23 09:55 Dose: 100 mls/hr Vancomycin/PEG/NADA/Lysine/Water (Vancocin) 1,500 mg in 300 mls @ 200 mls/hr IV Q12H [facility] Last Infusion: 07/28/23 22:55 Dose: Infused Insulin Human Lispro (Insulin Lispro 100 Unit/1 Ml) 0 unit SUBCUT WM&BEDTIME [facility]; Protocol Last Admin: 07/29/23 07:52 Dose: Not Given Lactulose (Lactulose Oral Liq 20 Gm/30 Ml Udc) 10 gm PO DAILY PRN; Protocol PRN Reason: Constipation (see protocol) Lanolin (Lanolin Oint 7 Gm) 1 applic TOPICAL PRN PRN PRN Reason: DRYNESS Last Admin: 07/16/23 20:45 Dose: 1 applic Levothyroxine Sodium (Levothyroxine 88 Mcg Tablet) 88 mcg PO DAILY [facility] Last Admin: 07/29/23 09:54 Dose: 88 mcg Lisinopril (Lisinopril 2.5 Mg Tablet) 2.5 mg PO DAILY [facility] Last Admin: 07/29/23 09:54 Dose: 2.5 mg Magnesium Hydroxide (Magnesium Hydroxide 30 Ml Udc) 30 ml PO DAILY PRN; Protocol PRN Reason: Constipation (see protocol) Last Admin: 07/17/23 15:01 Dose: 30 ml Ondansetron HCl (Ondansetron 2 Mg/Ml Sdv 2 Ml) 4 mg IVP Q8H PRN PRN Reason: vomiting, or N/V if npo Pantoprazole Sodium (Pantoprazole 40 Mg Sdv) 40 mg IVP Q24H [facility] Last Admin: 07/28/23 17:59 Dose: 40 mg Quetiapine Fumarate (Quetiapine 25 Mg Tablet) 25 mg PO BID [facility] Last Admin: 07/29/23 09:54 Dose: 25 mg Discontinued Medications Hydrocodone Bitart/Acetaminophen (Hydrocodone-Acetaminophen 7.5-325 Mg Tablet) 1 tab PO Q6H PRN PRN Reason: MODERATE PAIN Last Admin: 07/23/23 23:33 Dose: 1 tab Hydrocodone Bitart/Acetaminophen (Hydrocodone-Acetaminophen 7.5-325 Mg Tablet) 1 tab PO Q4H PRN PRN Reason: MODERATE PAIN Fentanyl (Fentanyl 50 Mcg/Ml Inj 2ml) Confirm Administered Dose 100 mcg .ROUTE .STK-MED ONE Stop: 07/16/23 12:00 Glycopyrrolate (Glycopyrrolate 0.2 Mg/Ml Sdv 2 Ml) Confirm Administered Dose 0.4 mg .ROUTE .STK-MED ONE Stop: 07/16/23 12:48 Hydromorphone HCl (Hydromorphone 1 Mg/Ml Inj 1 Ml) 1 mg IVP Q3H PRN PRN Reason: PAIN Last Admin: 07/16/23 15:32 Dose: 1 mg Hydromorphone HCl (Hydromorphone 1 Mg/Ml Inj 1 Ml) 0.5 mg IVP Q3H PRN PRN Reason: PAIN Last Admin: 07/17/23 23:15 Dose: 0.5 mg Hydromorphone HCl (Hydromorphone 1 Mg/Ml Inj 1 Ml) 0.5 mg IVP Q8H PRN PRN Reason: PAIN Last Admin: 07/23/23 00:53 Dose: 0.5 mg Sodium Chloride (Sodium Chloride 0.9%) 1,000 mls @ 999 mls/hr IV .Q1H1M ONE Stop: 07/14/23 12:55 Last Infusion: 07/14/23 15:54 Dose: Infused Vancomycin HCl 1,000 mg/ (Sodium Chloride) 250 mls @ 250 mls/hr IV ONCE ONE; Protocol Stop: 07/14/23 13:13 Last Infusion: 07/14/23 14:57 Dose: Infused Sodium Chloride (Sodium Chloride 0.9%) 1,000 mls @ 999 mls/hr IV .Q1H1M ONE Stop: 07/14/23 14:36 Last Infusion: 07/14/23 21:08 Dose: Infused Aztreonam 2,000 mg/ Sodium (Chloride) 100 mls @ 200 mls/hr IV ONCE ONE; Protocol Stop: 07/14/23 14:29 Last Infusion: 07/14/23 14:51 Dose: Infused Sodium Chloride (Sodium Chloride 0.9%) 500 mls @ 999 mls/hr IV .Q31M ONE Stop: 07/14/23 14:37 Last Infusion: 07/14/23 14:52 Dose: Infused Dextrose/Sodium Chloride (Dextrose 5%-Sod Chloride 0.9%) 1,000 mls @ 75 mls/hr IV .[id number] [facility] Last Infusion: 07/18/23 22:19 Dose: Infused Vancomycin HCl / Sodium (Chloride) 250 mls @ 0 mls/hr [id number] PROTOCOL [facility]; Protocol Meropenem 1,000 mg/ Sodium (Chloride) 50 mls @ 100 mls/hr IV Q8H [facility]; Protocol Last Infusion: 07/17/23 11:35 Dose: Infused Vancomycin/PEG/NADA/Lysine/Water (Vancocin) 1,500 mg in 300 mls @ 200 mls/hr IV Q36H [facility] Last Admin: 07/24/23 09:24 Dose: Not Given Tranexamic Acid (Tranexamic Acid) 1,000 mg in 100 mls @ 600 mls/hr IV Q30M PRN PRN Reason: BLEEDING Last Infusion: 07/17/23 07:34 Dose: Infused Iron Sucrose 200 mg/ Sodium (Chloride) 110 mls @ 220 mls/hr IV Q24H [facility] Stop: 07/21/23 09:29 Last Infusion: 07/21/23 11:30 Dose: Infused Albumin Human (Albumin) 25 g in 100 mls @ 60 mls/hr IV Q8H [facility] Stop: 07/19/23 14:59 Last Infusion: 07/19/23 07:44 Dose: Infused Cefepime HCl 1,000 mg/ Sodium (Chloride) 50 mls @ 100 mls/hr IV Q12H [facility]; Protocol Last Admin: 07/20/23 18:39 Dose: Not Given Vancomycin/PEG/NADA/Lysine/Water (Vancocin) 1,500 mg in 300 mls @ 200 mls/hr IV Q24H [facility] Stop: 07/21/23 16:00 Last Infusion: 07/21/23 16:45 Dose: Infused Dextrose/Sodium Chloride (Dextrose 5%-Sod Chloride 0.9%) 1,000 mls @ 75 mls/hr IV .[id number] [facility] Stop: 07/20/23 00:19 Last Infusion: 07/19/23 21:14 Dose: Infused Dextrose/Sodium Chloride (Dextrose 5%-Sod Chloride 0.45%) 1,000 mls @ 75 mls/hr IV .[id number] [facility] Last Admin: 07/21/23 21:46 Dose: 75 mls/hr Vancomycin/PEG/NADA/Lysine/Water (Vancocin) 1,500 mg in 300 mls @ 200 mls/hr IV Q18H [facility] Last Infusion: 07/27/23 00:20 Dose: Infused Insulin Human Lispro (Insulin Lispro 100 Unit/1 Ml) 0 unit SUBCUT WM&BEDTIME [facility]; Protocol Last Admin: 07/15/23 11:24 Dose: 10 unit Insulin Human Lispro (Insulin Lispro 100 Unit/1 Ml) 0 unit SUBCUT Q6H [facility]; Protocol Last Admin: 07/17/23 06:01 Dose: 2 unit Iohexol (Iohexol 350 Mg/Ml 500 Ml Btl (Per Ml)) 0 ml IV ONCE ONE Stop: 07/15/23 16:50 Last Admin: 07/15/23 16:49 Dose: 100 ml Lidocaine/Epinephrine (Lidocaine-Epi 2% 20 Ml Inj) Confirm Administered Dose 20 ml .ROUTE .STK-MED ONE Stop: 07/16/23 11:29 Lidocaine/Epinephrine (Lidocaine-Epi 2% 20 Ml Inj) 20 ml INJECTION ONCE ONE Stop: 07/16/23 13:39 Last Admin: 07/16/23 13:39 Dose: 20 ml Midazolam HCl (Midazolam 1 Mg/Ml Inj 2 Ml) Confirm Administered Dose 2 mg .ROUTE .STK-MED ONE Stop: 07/16/23 11:58 Morphine Sulfate (Morphine 4 Mg/Ml Sdv 1 Ml) 2 mg IVP Q4H PRN PRN Reason: SEVERE PAIN Last Admin: 07/16/23 03:28 Dose: 2 mg Neostigmine Methylsulfate (Neostigmine 1 Mg/Ml Sdv 10 Ml) Confirm Administered Dose 10 mg .ROUTE .STK-MED ONE Stop: 07/16/23 12:48 Sodium Chloride (Sodium Chloride 0.9% 100 Ml Bag) 50 ml IV PRN PRN PRN Reason: Blood transfusion prime and flush Stop: 07/19/23 07:34 Last Admin: 07/18/23 17:36 Dose: 50 ml Allergies Penicillins Allergy (Verified 07/14/23 11:49) RASH Home Medications aspirin 81 mg tablet,delayed release (Adult Low Dose Aspirin) 81 mg PO DAILY 01/01/20 [History Confirmed 07/14/23] levothyroxine 100 mcg tablet 100 mcg PO Q7D 07/14/23 [History Confirmed 07/14/23] levothyroxine 88 mcg tablet 88 mcg PO DAILY 07/14/23 [History Confirmed 07/14/23] lisinopril 20 mg-hydrochlorothiazide 12.5 mg tablet 2 tab PO DAILY 07/14/23 [History Confirmed 07/14/23] Discharge Plan Discharge Patient Disposition: er [facility] Condition: Stable Prescriptions: New quetiapine 25 mg Tablet 25 mg PO BID 30 Days Qty: 60 0RF amlodipine 10 mg Tablet 10 mg PO DAILY Qty: 30 0RF lisinopril 2.5 mg Tablet 2.5 mg PO DAILY Qty: 30 0RF famotidine 20 mg tablet 20 mg PO DAILY Qty: 30 0RF Continued aspirin [Adult Low Dose Aspirin] 81 mg tablet,delayed release (DR/EC) 81 mg PO DAILY levothyroxine 88 mcg tablet 88 mcg PO DAILY Discontinued lisinopril-hydrochlorothiazide 20-12.5 mg tablet 2 tab PO DAILY levothyroxine 100 mcg tablet 100 mcg PO Q7D Discharge Orders: Discharge Order (Routine); Ordered 07/29/23 Ordered By: Anil Magana Transfer Out of Facility (Order); Ordered 07/29/23 Ordered By: Anil Magana Referrals: Ricky Clay MD [Primary Care Provider] - 07/25/23 11:45 am Discharge Diet: Cardiac and Diabetic Discharge Activity: Resume usual activity and Increase activity as tolerated Patient Instructions: Lisinopril (By mouth) (Prinivil, Zestril), Famotidine (By mouth) (Acid Controller, Acid Programming Coordinator, Pepcid AC, Pepcid), Amlodipine (By mouth), Quetiapine (By mouth) (Seroquel, Seroquel XR, Seroquel XR 14-Day..., Acute Kidney Injury (DC), Urinary Tract Infection in Women (DC), Rhabdomyolysis (DC), Sepsis (DC), Chronic Wound Care (DC), Debridement (DC), Fall Prevention (DC), Hypernatremia (DC), Prediabetes (GEN), Chronic Wounds (DC), Opioid Safety Activity Restrictions/Additional Instructions: Continue 4 weeks of antibiotics including vancomycin and ertapenem from 07/16 which is the day of debridement. Continue wound care as before. Transfer Attestations 2 Time Spent in Transfer Care: greater than 30 min Specific Discharge Activities: educating patient, discussing with pcp/other providers, discussing with briefcase sewer/social workers/dc planners, documenting/other paperwork and evaluating patient/reviewing data Status at Transfer: Cognitive status at transfer: cognitively intact ; B ehavioral status at transfer: cooperative ; Functional status at transfer: bed bound ; Overall status at transfer: patient is progressing back to baseline Quality Metrics Clinical Quality Measures [ No reported AMI, CVA or VTE this stay] Coding Level of Care Code 67015 Total time (in minutes) for Discharge: 60 Diagnoses Bacterial infection due to Proteus mirabilis A49.8 Sepsis A41.9 Acute cystitis N30.00 Hematuria presence: without hematuria Wound cellulitis L03.90 Acute kidney injury N17.9 Hypernatremia E87.0 Rhabdomyolysis M62.82 Rhabdomyolysis type: non-traumatic Fall W19.XXXA Elevated lactic acid level R79.89 Transaminitis R74.01 Pressure ulcer L89.90 Hypothyroidism E03.9
[2023-07-29] MEDS: vancomycin 1,500 MG/300 ML PIGGYBACK 200 MG IV (11:04)
[2023-07-29 11:21] LABS: Glucose Point of Care 196 mg/dL (70-110)
[2023-07-29] MEDS: insulin lispro 100 unit/1 mL SUBCUT (11:30)
--- NOTE | 2023-07-29 12:26 | PC.NURSE ---
This nurse called to give report to Nirali and spoke to Walt at 1225. She took my name and number and said she would pass it to the nurse receiving this patient to call me back.
[2023-07-29 12:40] VITALS: BP 129/78; PULSE 92; RESP 18; TEMP 36.8; O2SAT 97
[2023-07-29 13:09] VITALS: BP 129/78; PULSE 92; RESP 18; TEMP 36.8; O2SAT 97
--- NOTE | 2023-07-29 14:27 | PC.NURSE ---
[facility] called back and report was given to nurse Gray.
== END 2023-07-29 13:08 | disposition home or self-care (01) | DRG 854 ==
LOC: ER 15:33 → ER IP 18:29 → ICU 07-15 10:41 → ER IP 07-16 05:35 → ICU 07-16 05:35 → MEDSURG 07-17 17:07
PROVIDERS: Internal Medicine; Surgery; Admitting Provider Student in an Organized Health Care Education/Training Program; Emergency Provider Emergency Medicine; PCP Family Medicine; Visit Provider Student in an Organized Health Care Education/Training Program
PROC: 0JBL0ZZ Excision of Right Upper Leg Subcutaneous Tissue and Fascia, Open Approach (ICD-10-PCS; principal; 2023-07-16 11:20)
DX: A41.9 Sepsis, unspecified organism (principal); E46 Unspecified protein-calorie malnutrition; M62.82 Rhabdomyolysis; L03.116 Cellulitis of left lower limb; N17.9 Acute kidney failure, unspecified; N30.00 Acute cystitis without hematuria; E87.0 Hyperosmolality and hypernatremia; Z16.19 Resistance to other specified beta lactam antibiotics; Z16.12 Extended spectrum beta lactamase (ESBL) resistance; Z68.43 Body mass index [BMI] 50.0-59.9, adult; W19.XXXA Unspecified fall, initial encounter; E03.9 Hypothyroidism, unspecified; I10 Essential (primary) hypertension; B87.1 Wound myiasis; F17.200 Nicotine dependence, unspecified, uncomplicated; E86.0 Dehydration; L89.210 Pressure ulcer of right hip, unstageable; L89.890 Pressure ulcer of other site, unstageable; F32.A Depression, unspecified; R73.9 Hyperglycemia, unspecified; B96.4 Proteus (mirabilis) (morganii) as the cause of diseases classified elsewhere; B95.62 Methicillin resistant Staphylococcus aureus infection as the cause of diseases classified elsewhere; Z11.52 Encounter for screening for COVID-19
CPT/HCPCS: 36415; 36416; 36430; 36556; 36573; 36592; 51702; 71045; 72193; 73502; 73700; 74176; 80048; 80053; 80061; 80202; 80306; 81001; 82436; 82550; 82570; 82607; 82746; 82962; 83036; 83540; 83550; 83605; 83735; 84100; 84133; 84145; 84300; 84443; 85014; 85018; 85025; 85045; 85610; 85999; 86850; 86900; 86920; 87040; 87070; 87075; 87077; 87086; 87150; 87176; 87186; 87205; 87449; 87486; 87581; 87633; 87641; 93005; 93925; 94664; 96365; 96366; 96367; 96372; 96376; 97110; 97161; 97530; 99291; C1751; C9113; J0692; J1170; J1644; J1756; J1815; J2185; J2250; J2270; J2710; J3010; J3370; J3490; J7030; J7040; J7042; J7050; J7799; P9016; P9046; Q9967